=== PATIENT | female | born 1995 | race Caucasian/White ===

== ENCOUNTER 2021-06-30 13:07 | Outpatient (REF) | payer OTHER, SELFPAY | END 2021-06-30 13:08 | disposition home or self-care (01) | LOC: HO.LAB 13:07 | PROVIDERS: Visit Provider Internal Medicine | DX: Z20.822 Contact with and (suspected) exposure to COVID-19 (principal) | CPT/HCPCS: C9803; U0003; U0005 ==

== ENCOUNTER 2022-01-26 19:59 | Emergency (ER) | payer OTHER, MEDICAID, SELFPAY ==
[2022-01-26 21:11] VITALS: BP 139/72; PULSE 82; RESP 14; TEMP 36.4; O2SAT 99; BMI 41.1
--- NOTE | 2022-01-26 22:50 | ED_ITS ---
HPI - Extremity Problem General Chief complaint: Extremity Problem Stated complaint: left hand pain Time Seen by Provider: 01/26/22 22:50 Source: patient Mode of arrival: ambulatory History of Present Illness HPI Narrative: 26-year-old female at 37 weeks gestation presenting to the ED complaining of acute on chronic left wrist pain x weeks. Admits does a lot of work with hand/wrist at work which is exacerbating symptoms. Admits to associated paresthesias. Denies injury, trauma, fall, weakness, fever, neck pain, back pain MD Complaint: extremity pain and joint pain Onset (ago): day(s) Related Data Allergies Allergy/AdvReac Type Severity Reaction Status Date / Time No Known Allergies Allergy Unverified 04/23/20 19:28 [No Known Allergies*] Review of Systems Review of Systems: Constitutional: No Fever, No Chills ENT/Mouth: No Ear Pain, No Nasal Congestion, No sore throat, No Rhinorrhea, No Swallowing Difficulty Cardiovascular: No Chest Pain, No SOB Respiratory: No Cough, No Sputum Gastrointestinal: No Nausea, No Vomiting, No Diarrhea, No Constipation, No Abdominal pain Genitourinary: No Dysuria, No Urinary Frequency, No Hematuria, No Flank Pain Musculoskeletal: + joint pain, No Myalgias, No Joint Swelling Skin: No Skin Lesions, No rash Neuro: No Weakness, No Numbness, + Paresthesias Yes all other systems are reviewed and are negative Neurologic: Denies Sensory deficit (Neuro) [facility] Past Medical History Attestation statement: The following information was validated with the patient. Social History Social History Advance Directives: No Advance Directives Information Provided: Yes Physical Exam Vital Signs: Vital Signs: Last Vital Signs Temp 97.6 F 01/26/22 21:11 Pulse 82 01/26/22 21:11 Resp 14 01/26/22 21:11 BP 139/72 01/26/22 21:11 Pulse Ox 99 01/26/22 21:11 O2 Del Method 01/26/22 21:11 BMI result Body Mass Index 41.1 Const: General: cooperative, healthy appearing and no acute distress Orientation/consciousness: patient oriented x3 Limitations: no limitations HEENT: Head: Yes normal to inspection and Yes atraumatic Ears: hearing grossly normal bilaterally General nose exam: Normal external nose present Face and sinus: Yes normal facial exam Eyes: General: appearance normal, both eyes and all related structures EOM: EOMs intact bilaterally Neck: Other: No midline cervical spinous tenderness Neck: Yes normal visual inspection and Yes no meningeal signs Resp: Effort & Inspection: normal respiratory effort and no respiratory distress Cardio: Rate: regular rate Heart sounds: S1 normal heart sound present and S2 normal heart sound present Peripheral pulses: radial pulses present and ulnar radial pulses present Skin: Rashes: no rashes Wounds: no wounds Neuro: General: patient oriented x3, tone normal and no meningeal signs Gait exam (Neuro): Normal gait present Motor exam (neuro): 5/5 motor strength present throughout Sensory Exam: No Sensory deficit (Neuro) Extrem: Other: No wrist deformity. +left wrist tenderness to palpation with pain with ROM. No erythema/crepitus/ecchymosis. Ulnar and radial pulses intact. Positive Tinel's and Phalen sign General: Yes normal to inspection MDM - Extremity (Nontraumatic) MDM Narrative Medical decision making narrative: 26-year-old female at 37 weeks gestation presenting to the ED complaining of acute on chronic left wrist pain x weeks. On exam vital signs stable, NAD, nontoxic appearing, physical exam as above consistent with carpal tunnel syndrome. + Tinel's and Phalen sign. Sensation and strength intact. Discussed with patient symptoms are likely exacerbated from , will supply with volar wrist splint and recommended Tylenol q.4-6 hours Plan: Volar splint, hand follow-up Medical Records Attestation: I reviewed the patient's medical records. Lab Data Attestation: I reviewed the patient's lab results. Procedures Orthopedic Splinting/Casting Injury #1: Side: left Upper Extremity Injury Location: wrist Upper Extremity Immobilizer: volar splint Discharge Plan Discharge Clinical Impression: Carpal tunnel syndrome Patient Disposition: Home, Self-Care Instructions: Carpal Tunnel Surgery (DC) Additional Instructions: Wear wrist splint at as much as possible, especially during sleep. Ice and heat alternating home. Take Tylenol Please follow-up with her OBGYN and primary care doctor. Dr. Harry is a hand specialist if her symptoms persist after Rest If symptoms persist or worsen return to the emergency department Referrals: Halley Kelly MD [Physician] - 1 week Stand Alone Forms: Work/School Release Discharge Date/Time: 01/26/22 23:00
== END 2022-01-26 23:00 | disposition home or self-care (01) ==
PROVIDERS: Emergency Provider Emergency Medicine Emergency Medical Services; PCP Internal Medicine
DX: G56.02 Carpal tunnel syndrome, left upper limb (principal)
CPT/HCPCS: 29125; 99282

== ENCOUNTER 2022-07-16 14:40 | Emergency (ER) | payer OTHER, SELFPAY ==
[2022-07-16 14:47] VITALS: BP 134/80; PULSE 68; RESP 18; TEMP 36.7; O2SAT 97; BMI 32.5
--- NOTE | 2022-07-16 14:47 | ED.GENADULT ---
HPI - General Adult General Chief complaint: General Medical <SU Lombardo Last Filed: 07/16/22 14:49> Stated complaint: sore throat <SU Lombardo Last Filed: 07/16/22 14:49> Time Seen by Provider: 07/16/22 15:28 <SU Lombardo Last Filed: 07/16/22 14:49> Source: patient <SU Armendariz Last Filed: 07/16/22 16:44> Mode of arrival: ambulatory <SU Armendariz Last Filed: 07/16/22 16:44> Limitations: no limitations <SU Armendariz Last Filed: 07/16/22 16:44> History of Present Illness HPI narrative: 36-year-old female presents to the ER for evaluation of sore throat and right-sided ear pain for the last few days. She states she has intermittently been taking Tylenol with only brief improvement. She feels like she has swollen lymph nodes on the right side of her neck. She is able to eat and drink normally but reports that hurts to swallow. She denies fever or chills. She has had some mild nasal congestion and dry cough. No nausea, vomiting, diarrhea, abdominal pain. No chest pain or shortness of breath. No known sick contacts. She is here seeking antibiotics to help her get better. <SU Armendariz Last Filed: 07/16/22 16:44> MD complaint: Right ear pain and throat pain. <SU Armendariz Last Filed: 07/16/22 16:44> Onset (ago): day(s) <SU Armendariz Last Filed: 07/16/22 16:44> Location: head, face and mouth <SU Armendariz Last Filed: 07/16/22 16:44> Radiation: non-radiation <SU Armendariz Last Filed: 07/16/22 16:44> Severity: moderate <SU Armendariz Last Filed: 07/16/22 16:44> Quality: aching <SU Armendariz Last Filed: 07/16/22 16:44> Pain Consistency: constant <SU Armendariz Last Filed: 07/16/22 16:44> Relieving factors: medication <SU Armendariz Last Filed: 07/16/22 16:44> Exacerbating factors: none <SU Armendariz Last Filed: 07/16/22 16:44> Associated symptoms: cough, headaches and malaise <SU Armendariz Last Filed: 07/16/22 16:44> Treatments prior to arrival: none <SU Armendariz Last Filed: 07/16/22 16:44> Related Data Home medications: Previous Rx's Medication Instructions Recorded ibuprofen 600 mg tablet 600 mg PO Q8H PRN fever or pain 07/16/22 #20 tabs <SU Lombardo Last Filed: 07/16/22 14:49> Allergies/adverse reactions: Allergies Allergy/AdvReac Type Severity Reaction Status Date / Time No Known Allergies Allergy Unverified 04/23/20 19:28 [No Known Allergies*] <SU Lombardo Last Filed: 07/16/22 14:49> Review of Systems Review of Systems: Constitutional: No Fever, No Chills ENT/Mouth: + sore throat, No Rhinorrhea, No Swallowing Difficulty, +Otalgia Eyes: No Eye Pain, No Swelling, No Redness Cardiovascular: No Chest Pain, No SOB Respiratory: + Cough, No Sputum, No Wheezing, No dyspnea Gastrointestinal: No Nausea, No Vomiting, No Diarrhea, No abdominal Daniela Musculoskeletal: No joint pain, No Myalgias Skin: No Skin Lesions, No rash Neuro: No Weakness, No Dizziness, + Headache Heme/Lymph: No Bruising, + Lymphadenopathy <SU Armendariz Last Filed: 07/16/22 16:44> [facility] Social History Social History: Social History Advance Directives: No Advance Directives Information Provided: No <SU Lombardo Last Filed: 07/16/22 14:49> Physical Exam ED Vital Signs: Vital Signs - 24 hr 07/16/22 14:47 Temperature 98.1 F Pulse Rate 68 Respiratory Rate 18 Blood Pressure 134/80 Pulse Oximetry 97 Oxygen Delivery Method Room Air BMI result Body Mass Index 32.5 <SU Lombardo - Last Filed: 07/16/22 14:49> Vital Signs - 24 hr 07/16/22 14:47 Temperature 98.1 F Pulse Rate 68 Respiratory Rate 18 Blood Pressure 134/80 Pulse Oximetry 97 Oxygen Delivery Method Room Air BMI result Body Mass Index 32.5 <SU Armendariz - Last Filed: 07/16/22 16:44> Appearance: Alert. Oriented X3. No acute distress. Eyes: Pupils equal, round and reactive to light. ENT: Pharynx moist mucous membranes. Bilateral tonsillar enlargement with mild generalized erythema, no exudate. Uvula midline. Normal voice, handling secretions normally. Bilateral tympanic membranes are normal to inspection without erythema or bulging. Neck: Normal inspection. Neck supple. Tender lymphadenopathy of the right anterior cervical chain CVS: Normal heart rate and rhythm. Pulses normal. Respiratory: No respiratory distress. Breath sounds normal. Skin: Skin warm and dry. Normal skin color. Normal skin turgor. No rashes. Extremities: No lower extremity edema. Neuro: Oriented X 3. Grossly normal, nonfocal <SU Armendariz Last Filed: 07/16/22 16:44> Course Course Course Narrative: RME: 26 yo female presents w/ sore thorat and right sided ear pain X3 days. No fevers, chills or URI sx. No sick contacts PE- w/ edematous tonsils b /l L>R. Speaking in full sentences controlling secretions well. Nontoxic appearing Plan- strep, flu/covid/rsv <SU Lombardo - Last Filed: 07/16/22 14:49> Reevaluation(s) Reevaluation #1: 26-year-old female presenting to the ER with right-sided ear pain and sore throat for the last few days. On examination she has some tonsillar swelling without exudate. She has a normal voice and is tolerating p.o. crackers and yuko josh in the examination room. No evidence of peritonsillar abscess or retropharyngeal abscess. Swabs and blood work are pending. <SU Armendariz - Last Filed: 12/10/22 16:44> Reevaluation #2: Patient is negative for flu, COVID, RSV, strep throat and mono. We discussed symptomatic care of viral infections. Stable for discharge home. Patient agrees with plan <SU Armendariz - Last Filed: 07/16/22 16:44> Medications Administered Discontinued Medications Generic Name Dose Route Start Last Admin Trade Name Freq PRN Reason Stop Dose Admin Ibuprofen 600 mg 07/16/22 15:56 07/16/22 16:30 Ibuprofen 600 Mg Tablet PO 07/16/22 15:57 600 mg ONCE ONE Administration Lidocaine HCl 15 ml 07/16/22 15:56 07/16/22 16:30 Lidocaine Hcl Viscous 2 % 15 Ml Solution MUCOUS MEM 07/16/22 15:57 15 ml ONCE ONE Administration <SU Lombardo - Last Filed: 07/16/22 14:49> Medications Administered Discontinued Medications Generic Name Dose Route Start Last Admin Trade Name Freq PRN Reason Stop Dose Admin Ibuprofen 600 mg 07/16/22 15:56 07/16/22 16:30 Ibuprofen 600 Mg Tablet PO 07/16/22 15:57 600 mg ONCE ONE Administration Lidocaine HCl 15 ml 07/16/22 15:56 07/16/22 16:30 Lidocaine Hcl Viscous 2 % 15 Ml Solution MUCOUS MEM 07/16/22 15:57 15 ml ONCE ONE Administration <SU Armendariz - Last Filed: 07/16/22 16:44> Discharge Plan Discharge Clinical Impression: Viral URI <US Lombardo Last Filed: 07/16/22 14:49> Patient Disposition: Home, Self-Care <SU Lombardo Last Filed: 07/16/22 14:49> Instructions: Upper Respiratory Infection (ED) <SU Lombardo Last Filed: 07/16/22 14:49> Additional Instructions: You tested negative for COVID-19, influenza, RSV, strep throat and mononucleosis. There is no evidence of bacterial infection, no antibiotics are indicated at this time. Your symptoms are most likely due to a viral infection. Treatment is supportive care. Take aica-xuq-gxjqeny cold and flu medications as needed for your symptoms. Take the prescribed anti-inflammatory pain medication as needed for fevers and pain. Rest and stay hydrated. Follow up with your doctor as needed. If you develop new or worsening symptoms call 911 or come back to the ER for further evaluation. <SU Lombardo - Last Filed: 07/16/22 14:49> Prescriptions: New ibuprofen 600 mg tablet 600 mg PO Q8H PRN (Reason: fever or pain) Qty: 20 0RF <SU Lombardo - Last Filed: 07/16/22 14:49>
--- OUTSIDE RECORDS SUMMARY | 2022-07-16 15:25 | XMS_ITS | Continuity of Care Document ---
:1995 Author Organization [facility] Address [address] [place] [address], [address] [place] [id number]- Care Team Providers Name Role Phone Priscila DE JESUS, Selam Primary Care Physician Encounter [facility] Date(s): 01/28/22 - 02/04/22 [facility] [address] [place] [address], [address] [place] [id number] Attending Physician: Eva Donahue MD Allergies, Adverse Reactions, Alerts No Known Allergies Immunizations Given and Recorded Vaccine Date Status Refusal Reason tetanus/diphtheria/pertussis, acel(Tdap) 11/25/21 Given tetanus/diphtheria/pertussis, acel(Tdap) 11/10/16 Given SARS-CoV-2 (COVID-19) mRNA-1273 vaccine 03/04/21 Recorded SARS-CoV-2 (COVID-19) mRNA-1273 vaccine 01/05/21 Recorded influenza virus vaccine, inactivated 07/19/17 Given influenza virus vaccine, inactivated 04/15/16 Recorded Human Papillomavirus Vaccine 02/21/17 Given Human Papillomavirus Vaccine 10/14/16 Given Medications Compression Stockings See Instructions, # 2 each, Refills 0, Tot. Refills 0, Maintenance, surgical, calf length 20-30 mm Hg, 12/06/21 11:55:00 EDT, Supply Start Date: 12/06/21 Status: Orderedfolic acid 0.8 mg oral tablet 1 tablet = 0.8 mg, By Mouth, Daily, # 100 tablet, 4 Refills, Maintenance, 09/13/21 13:25:00 EST, Tablet, [facility] #[id number], Partial fill upon patient request if the prescription is for a schedule II opioid drug., 163, cm, 09/13/21 13:11:00 E... Start Date: 09/13/21 Status: Orderedketoconazole 2% topical shampoo 1 application, Topically, Once, PRN as needed, # 120 mL, 0 Refills, Soft Stop, 11/24/21 16:13:00 EDT, Shampoo, [facility] #[id number], Partial fill upon patient request if the prescription is for a schedule II opioid drug., 1 application Topicall... Start Date: 11/24/21 Status: OrderedPrenatal Multivitamins with Folic Acid 1 mg oral capsule See Instructions, TAKE ONE DAILY BY MOUTH, # 100 tablet, 2 Refills, Maintenance, 06/15/21 14:37:00 EST, [facility] #[id number], Partial fill upon patient request if the prescription is for a schedule II opioid drug., TAKE ONE DAILY BY MOUTH, 163,... Start Date: 06/15/21 Status: Ordered Problem List Condition Effective Dates Status Health Status Informant Constipation(Confirmed) Active COVID-19 affecting , Active antepartum(Confirmed) Generalized anxiety Active disorder(Confirmed)1 History of panic attacks(Confirmed) Active History of oligohydramnios(Confirmed)2 2012 Active Depression: MDD (major depressive Active disorder), recurrent episode(Confirmed) Dermatitis, seborrheic(Confirmed) Active Severe obesity(Confirmed) Active Uterine scar from previous Active delivery(Confirmed) Maternal varicella, Active non-immune(Confirmed) 1As per [facility] forms faxed on 04/16/18. Provider: Olive Moralesper youth career specialist 2019 note Social History Social History Type Response Smoking Status Never (less than 100 in life time) entered on: 07/09/21 Sex
--- OUTSIDE RECORDS SUMMARY | 2022-07-16 15:25 | XMS_ITS | Continuity of Care Document ---
:1995 Author Organization [facility] Address [address] [place] [address], [address] [place] [phone]- Care Team Providers Name Role Phone Priscila DE JESUS, Selam Primary Care Physician Encounter [facility] Date(s): 11/24/21 - 12/24/21 [facility] [address] [place] [address], [address] [place] [id number] Allergies, Adverse Reactions, Alerts No Known Allergies [...] 4 Refills, Maintenance, 09/13/21 13:25:00 EST, Tablet, [facility] #[id number], Partial fill upon patient request if the prescription is for a schedule II opioid drug., 163, cm, 09/13/21 13:11:00 E... Start Date: 09/13/21 Status: Orderedketoconazole 2% topical shampoo 1 application, Topically, Once, PRN as needed, # 120 mL, 0 Refills, Soft Stop, 11/24/21 16:13:00 EDT, Shampoo, [facility] #[id number], Partial fill upon patient request if the prescription is for a schedule II opioid drug., 1 application Topicall... Start Date: 11/24/21 Status: OrderedPrenatal Multivitamins with Folic Acid 1 mg oral capsule See Instructions, TAKE ONE DAILY BY MOUTH, # 100 tablet, 2 Refills, Maintenance, 06/15/21 14:37:00 EST, [facility] #[id number], Partial fill upon patient request if the prescription is for a schedule II opioid drug., TAKE ONE DAILY BY MOUTH, 163,... Start Date: 06/15/21 Status: Ordered Problem List Condition Effective Dates Status Health Status Informant Constipation(Confirmed) Active COVID-19 affecting , Active antepartum(Confirmed) Generalized anxiety Active disorder(Confirmed)1 History of panic attacks(Confirmed) Active History of oligohydramnios(Confirmed)2 2012 Active Obese class II(Confirmed) Active Depression: MDD (major depressive Active disorder), recurrent episode(Confirmed) Dermatitis, seborrheic(Confirmed) Active Uterine scar from previous Active delivery(Confirmed) Maternal varicella, Active non-immune(Confirmed) 1As per [facility] forms faxed on 04/16/18. Provider: Olive Cherys2per horticultural farmer 2019 note Social History Social History Type Response Smoking Status Never (less than 100 in life time) entered on: 07/09/21 Sex
--- OUTSIDE RECORDS SUMMARY | 2022-07-16 15:25 | XMS_ITS | Continuity of Care Document ---
:1995 Author Organization [facility] Address [address] [place] [address], [address] [place] [id number]- Care Team Providers Name Role Phone Priscila DE JESUS, Selam Primary Care Physician Encounter [facility] Date(s): 11/25/21 - 12/02/21 [facility] [address], [address] [place] [email or web address] Attending Physician: Ho León MD Referring Physician: Tho DE JESUS [OB], Joanna Moya Allergies, Adverse Reactions, Alerts No Known Allergies Immunizations Given and Recorded Vaccine Date Status Refusal Reason tetanus/diphtheria/pertussis, acel(Tdap) 11/25/21 Given tetanus/diphtheria/pertussis, acel(Tdap) 11/10/16 Given SARS-CoV-2 (COVID-19) mRNA-1273 vaccine 03/04/21 Recorded SARS-CoV-2 (COVID-19) mRNA-1273 vaccine 01/05/21 Recorded influenza virus vaccine, inactivated 07/19/17 Given influenza virus vaccine, inactivated 04/15/16 Recorded Human Papillomavirus Vaccine 02/21/17 Given Human Papillomavirus Vaccine 10/14/16 Given Medications folic acid 0.8 mg oral tablet 1 tablet = 0.8 mg, By Mouth, Daily, # 100 tablet, 4 Refills, Maintenance, 09/13/21 13:25:00 EST, Tablet, [facility] #[id number], Partial fill upon patient request if the prescription is for a schedule II opioid drug., 163, cm, 09/13/21 13:11:00 E... Start Date: 09/13/21 Status: Orderedketoconazole 2% topical shampoo 1 application, Topically, Once, PRN as needed, # 120 mL, 0 Refills, Soft Stop, 11/24/21 16:13:00 EDT, Shampoo, [facility][id number], Partial fill upon patient request if the prescription is for a schedule II opioid drug., 1 application Topicall... Start Date: 11/24/21 Status: OrderedPrenatal Multivitamins with Folic Acid 1 mg oral capsule See Instructions, TAKE ONE DAILY BY MOUTH, # 100 tablet, 2 Refills, Maintenance, 06/15/21 14:37:00 EST, [facility] #[id number], Partial fill upon patient request if the [...] forms faxed on 04/16/18. Provider: Olive Cherys2per program trainer 2019 note Vital Signs Most recent to oldest [Reference Range]: 1 Height 163 cm (11/25/21 4:41 PM) Weight 103.13 kg (11/25/21 4:41 PM) Body Mass Index [18.5-24.99] 38.82 *>HHI* (11/25/21 4:41 PM) Blood Pressure [90-138/55-84 mm Hg] 119/67 mm Hg (11/25/21 4:41 PM) Blood pressure sites Arm, right (11/25/21 4:41 PM) Weight Obtained Via Standing scale (11/25/21 4:41 PM) Social History Social History Type Response Smoking Status Never (less than 100 in life time) entered on: 07/09/21 Sex
--- OUTSIDE RECORDS SUMMARY | 2022-07-16 15:25 | XMS_ITS | Continuity of Care Document ---
:1995 Author Organization [address] [place] [address]- Care Team Providers Name Role Phone Liam DE JESUS, Olman Primary Care Physician [place] [facility] [place] - 05/18/[address] [place], [place] [address] Allergies, Adverse Reactions, Alerts No Known Allergies Immunizations Given and Recorded Vaccine Date Status Refusal Reason tetanus/diphtheria/pertussis, acel(Tdap) 11/25/21 Given tetanus/diphtheria/pertussis, acel(Tdap) 11/10/16 Given SARS-CoV-2 (COVID-19) mRNA-1273 vaccine 03/04/21 Recorded SARS-CoV-2 (COVID-19) mRNA-1273 vaccine 01/05/21 Recorded influenza virus vaccine, inactivated 07/19/17 Given influenza virus vaccine, inactivated 04/15/16 Recorded Human Papillomavirus Vaccine 02/21/17 Given Human Papillomavirus Vaccine 10/14/16 Given Medications acetaminophen 325 mg oral tablet 650 mg, By Mouth, Every 4 hours, (1-3), may give 325mg per patient preference and re-dose with 325mgwithin 4 hours, if needed. Patient should only receive a total of 650mg of Acetaminophen every 4 hours., # 50 tablet, Refills 0, Tot. Refills 0, Jenni... Start Date: 02/23/22 Status: OrderedCompression Stockings See Instructions, # 2 each, Refills 0, Tot. Refills 0, Maintenance, surgical, calf length 20-30 mm Hg, 12/06/21 11:55:00 EDT, Supply Start Date: 12/06/21 Status: OrderedDiflucan 150 mg oral tablet 1 tablet = 150 mg, By Mouth, Once, # 1 tablet, 0 Refills, Soft Stop, 09/13/22 11:15:00 EDT, Tablet, [facility] #[id number], Partial fill upon patient request if the prescription is for a schedule II opioid drug., [place], 04/15/22 16:06:00 EDT, H... Start Date: 04/19/22 Status: Ordereddocusate sodium 100 mg oral tablet = 100 mg, By Mouth, 2 times a day, # 60 tablet, 0 Refills, Maintenance, 02/23/22 6:32:00 EDT, Tablet, [facility] #[id number], Partial fill upon patient request if the prescription is for a schedule II opioid drug., 163, [place], 02/23/22 0:05:00 EDT,... Start Date: 02/23/22 Status: Orderedfamotidine 20 mg oral tablet 20 mg, 1, tablet, By Mouth, Daily, # 30 tablet, Refills 0, Tot. Refills 0, Maintenance, 01/12/22 9:47:00 EDT, Route to Pharmacy Electronically, [facility] #[id number], Partial fill upon patient request if the prescription is for a schedule II opi... Start Date: 01/12/22 Stop Date: 02/11/22 Status: Orderedfolic acid 0.8 mg oral tablet 1 tablet = 0.8 mg, By Mouth, Daily, # 100 tablet, 4 Refills, Maintenance, 09/13/21 13:25:00 EST, Tablet, [facility] #[id number], Partial fill upon patient request if the prescription is for a schedule II opioid drug., 163, [place], 09/13/21 13:11:00 E... Start Date: 09/13/21 Status: Orderedhydrocortisone 2.5% topical ointment 1 application, Topically, 3 times a day, # 28.35 Gm, 0 Refills, Maintenance, 03/02/22 13:36:00 EDT, Ointment, [facility] #[id number], Partial fill upon patient request if the prescription is for aschedule II opioid drug., 1 application Topically... Start Date: 03/02/22 Stop Date: 03/16/22 Status: Orderedibuprofen 800 mg oral tablet 800 mg, 1, tablet, By Mouth, Every 8 hours, (4-6), may give 400mg per patient preference and re-dosewith 400mg within 8 hours, if needed. Patient should only receive a total of 800mg of Ibuprofen every 8 hours., # 50 tablet, Refills 0, Tot. Refills... Start Date: 02/23/22 Status: Orderedketoconazole 2% topical shampoo 1 application, Topically, Once, PRN as needed, as directed on package labeling, # 120 mL, 4 Refills,Soft Stop, 05/04/22 12:43:00 EDT, Shampoo, [facility] #[id number], Partial fill upon patient request if the prescription is for a schedule II opi... Start Date: 05/04/22 Status: OrderedoxyCODONE 5 mg oral tablet 5 mg, 1, tablet, By Mouth, Every 3 hours, PRN, (7-10), # 7 tablet, Refills 0, Tot. Refills 0, Maintenance, Pain , Severe, 02/23/22 6:32:00 EDT, Route to Pharmacy Electronically, [facility] #[id number], Partial fill upon patient request if the pre... Start Date: 02/23/22 Status: OrderedPrenatal Multivitamins with Folic Acid 1 mg oral capsule See Instructions, TAKE ONE DAILY BY MOUTH, # 100 tablet, 2 Refills, Maintenance, 06/15/21 14:37:00 EST, [facility] #[id number], Partial fill upon patient request if the prescription is for a schedule II opioid drug., TAKE ONE DAILY BY MOUTH, 163,... Start Date: 06/15/21 Status: Orderedsertraline 25 mg oral tablet 1 tablet = 25 mg, By Mouth, Daily, 1 tab po qd x 1 week. If doing well, increase to bid, # 90 tablet, 0 Refills, Maintenance, 04/15/22 16:42:00 EDT, Tablet, [facility] #[id number], Partial fill upon patient request if the prescription is for a sc... Start Date: 04/15/22 Status: Orderedsertraline 50 mg oral tablet 1 tablet = 50 mg, By Mouth, Daily, # 90 tablet, 0 Refills, Maintenance, 04/29/22 12:34:00 EDT, Tablet, [facility] #[id number], Partial fill upon patient request if the prescription is for a schedule II opioid drug., 163, cm, 04/15/22 16:06:00 EDT... Start Date: 04/29/22 Status: Orderedsimethicone 80 mg oral tablet, chewable 80 mg, Chew, 3 times a day, PRN, # 36 tablet, Refills 0, Tot. Refills 0, Maintenance, Gas, 02/23/22 6:32:00 EDT, Route to Pharmacy Electronically, [facility] #[id number], Partial fill upon patientrequest if the prescription is for a schedule II... Start Date: 02/23/22 Status: Ordered Problem List Condition Confirmation Course Effective Dates Status Health Stat us Informant Constipation Confirmed Active COVID-19 affecting Confirmed Active , antepartum Generalized anxiety Confirmed Active disorder1 History of panic Confirmed Active attacks History of Confirmed 2013 Active oligohydramnios2 Obese class II Confirmed Active Depression: MDD Confirmed Active (major depressive disorder), recurrent episode Dermatitis, Confirmed Active seborrheic Uterine scar from Confirmed Active previous delivery Maternal varicella, Confirmed Active non-immune 1As per [facility] forms faxed on 04/16/18. Provider: Olive Cherys2per captain's assistant 2019 note Social History Social History Type Response Smoking Status Never (less than 100 in life time) entered on: 07/09/21 Sex Patient Care team information PersonnelName: Olman Wheeler MD Address: Address: [address] [place] [address]
--- OUTSIDE RECORDS SUMMARY | 2022-07-16 15:25 | XMS_ITS | Continuity of Care Document ---
:1995 Author Organization [facility] Address [address] [place] [address], [address] [place] [address]- Care Team Providers Name Role Phone Liam DE JESUS, Olman Primary Care Physician [place] [facility] [place]07[place] - 04/06/22 [facility] [address], [address] [place] [id number] Attending Physician: Xiang Perez Admitting Physician: AdmtrXiang Referring Physician: Admtr, Ar8 Allergies, Adverse Reactions, Alerts No Known Allergies [...] 11:55:00 EDT, Supply Start Date: 12/06/21 Status: Ordereddocusate sodium 100 mg oral tablet = 100 mg, By Mouth, 2 times a day, # 60 tablet, 0 Refills, Maintenance, 02/23/22 6:32:00 EDT, Tablet, [facility] #[id number], Partial fill upon patient request if the prescription is for a schedule II opioid drug., 163, cm, 02/23/22 0:05:00 EDT,... Start Date: 02/23/22 Status: Orderedfamotidine 20 mg oral tablet 20 mg, 1, tablet, By Mouth, Daily, # 30 tablet, Refills 0, Tot. Refills 0, Maintenance, 01/12/22 9:47:00 EDT, Route to Pharmacy Electronically, [facility] #[id number], Partial fill upon patient request if the prescription is for a schedule II opi... Start Date: 01/12/22 Stop Date: 02/11/22 Status: Orderedfolic acid 0.8 mg oral tablet 1 tablet = 0.8 mg, By Mouth, Daily, # 100 tablet, 4 Refills, Maintenance, 09/13/21 13:25:00 EST, Tablet, [facility] #[id number], Partial fill upon patient request if the prescription is for a schedule II opioid drug., 163, cm, 09/13/21 13:11:00 E... Start Date: 09/13/21 Status: Orderedhydrocortisone 2.5% topical ointment 1 application, Topically, 3 times a day, # 28.35 Gm, 0 Refills, Maintenance, 03/02/22 13:36:00 EDT, Ointment, [facility] #[id number], Partial fill upon patient request if the [...] Refills, Soft Stop, 11/24/21 16:13:00 EDT, Shampoo, [facility] #[id number], Partial fill upon patient request if the prescription is for a schedule II opioid drug., 1 application Topicall... Start Date: 11/24/21 Status: OrderedoxyCODONE 5 mg oral tablet 5 mg, 1, tablet, By Mouth, Every 3 hours, PRN, (7-10), # 7 tablet, Refills 0, Tot. Refills 0, Maintenance, Pain , Severe, 02/23/22 6:32:00 EDT, Route to Pharmacy Electronically, [facility] #[id number], Partial fill upon patient request if the pre... Start Date: 02/23/22 Status: OrderedPrenatal Multivitamins with Folic Acid 1 mg oral capsule See Instructions, TAKE ONE DAILY BY MOUTH, # 100 tablet, 2 Refills, Maintenance, 06/15/21 14:37:00 EST, [facility] #[id number], Partial fill upon patient request if the prescription is for a schedule II opioid drug., TAKE ONE DAILY BY MOUTH, 163,... Start Date: 06/15/21 Status: Orderedsimethicone 80 mg oral tablet, chewable 80 mg, Chew, 3 times a day, PRN, # 36 tablet, Refills 0, Tot. Refills 0, Maintenance, Gas, 02/23/22 6:32:00 EDT, Route to Pharmacy Electronically, [facility] #[id number], Partial fill upon patientrequest if the prescription is for a schedule II... Start Date: 02/23/22 Status: Ordered Problem List Condition Effective Dates Status Health Status Informant Constipation(Confirmed) Active COVID-19 affecting , Active antepartum(Confirmed) Generalized anxiety Active disorder(Confirmed)1 History of panic attacks(Confirmed) Active History of oligohydramnios(Confirmed)2012 Active Depression: MDD (major depressive Active disorder), recurrent episode(Confirmed) Dermatitis, seborrheic(Confirmed) Active Severe obesity(Confirmed) Active Uterine scar from previous Active delivery(Confirmed) Maternal varicella, Active non-immune(Confirmed) 1As per [facility] forms faxed on 04/16/18. Provider: Olive Crawford director craft center 2019 note Social History Social History Type Response Smoking Status Never (less than 100 in life time) entered on: 07/09/21 Sex Care Team PersonnelName: Olman Wheeler MD Address: [address] [place] [address]
--- OUTSIDE RECORDS SUMMARY | 2022-07-16 15:25 | XMS_ITS | Continuity of Care Document ---
:1995 Author Organization [facility] Address [address] [place] [address], [address] [place] [address]- Care Team Providers Name Role Phone Priscila DE JESUS, Selam Primary Care Physician En[place] [facility] [place] Date(s): 12/17/21 - 01/16/22 [facility] [address] [place] [address], [address] [place] [id number] Allergies, Adverse Reactions, Alerts No Known [...] 4 Refills, Maintenance, 09/13/21 13:25:00 EST, Tablet, [facility] #[id number], Partial fill upon patient request if the prescription is for a schedule II opioid drug., 163, cm, 09/13/21 13:11:00 E... Start Date: 09/13/21 Status: Orderedketoconazole 2% topical shampoo 1 application, Topically, Once, PRN as needed, # 120 mL, 0 Refills, Soft Stop, 11/24/21 16:13:00 EDT, Shampoo, [facility] #[id number], Partial fill upon patient request if the prescription is for a schedule II opioid drug., 1 application Topicall... Start Date: 11/24/21 Status: OrderedPrenatal Multivitamins with Folic Acid 1 mg oral capsule See Instructions, TAKE ONE DAILY BY MOUTH, # 100 tablet, 2 Refills, Maintenance, 06/15/21 14:37:00 EST, [facility] #[id number], Partial fill upon patient request if the [...] forms faxed on 04/16/18. Provider: Olive Cherys2per mandrel press hand 2019 note Social History Social History Type Response Smoking Status Never (less than 100 in life time) entered on: 07/09/21 Sex
--- OUTSIDE RECORDS SUMMARY | 2022-07-16 15:25 | XMS_ITS | Continuity of Care Document ---
:1995 Author Organization [facility] Address [address] [place] [address], [address] [place] [address]- Care Team Providers Name Role Phone Liam DE JESUS, Olman Primary Care Physician [place] [facility] [place] 02/15/22 [facility] [address], [address] [place] [id number] Attending Physician: Godfrey DE JESUS, Eva Daniel Allergies, Adverse Reactions, Alerts No Known Allergies [...] 4 Refills, Maintenance, 09/13/21 13:25:00 EST, Tablet, [facility] #[id number], Partial fill upon patient request if the prescription is for a schedule II opioid drug., 163, cm, 09/13/21 13:11:00 E... Start Date: 09/13/21 Status: Orderedketoconazole 2% topical shampoo 1 application, Topically, Once, PRN as needed, # 120 mL, 0 Refills, Soft Stop, 11/24/21 16:13:00 EDT, Shampoo, [facility] #[id number], Partial fill upon patient request if the prescription is for a schedule II opioid drug., 1 application Topicall... Start Date: 11/24/21 Status: OrderedPrenatal Multivitamins with Folic Acid 1 mg oral capsule See Instructions, TAKE ONE DAILY BY MOUTH, # 100 tablet, 2 Refills, Maintenance, 06/15/21 14:37:00 EST, [facility] #[id number], Partial fill upon patient request if the [...] forms faxed on 04/16/18. Provider: Olive Moralesper installation manager 2019 note Vital Signs Most recent to oldest [Reference Range]: 1 Height 163 cm (02/08/22 1:06 PM) Weight 108.63 kg (02/08/22 1:06 PM) Body Mass Index [18.5-24.99] 40.89 *>HHI* (02/08/22 1:06 PM) Blood Pressure [90-138/55-84 mm Hg] 134/72 mm Hg (02/08/22 1:06 PM) Blood pressure sites Arm, left (02/08/22 1:06 PM) Weight Obtained Via Standing scale (02/08/22 1:06 PM) Social History Social History Type Response Smoking Status Never (less than 100 in life time) entered on: 07/09/21 Sex
--- OUTSIDE RECORDS SUMMARY | 2022-07-16 15:25 | XMS_ITS | Continuity of Care Document ---
:1995 Author Organization [facility] Address [address] [place] [address]- Care Team Providers Name Role Phone Priscila DE JESUS, Selam Primary Care Physician Encounter [facility] Date(s): 06/03/21 - 07/03/21 [facility] [address] [place], [place] [address] Allergies, Adverse Reactions, Alerts Substance Reaction Severity Status NKA Active Immunizations Given and Recorded Vaccine Date Status Refusal Reason SARS-CoV-2 (COVID-19) mRNA-1273 vaccine 03/04/21 Recorded SARS-CoV-2 (COVID-19) mRNA-1273 vaccine 01/05/21 Recorded influenza virus vaccine, inactivated 07/19/17 Given influenza virus vaccine, inactivated 04/15/16 Recorded Human Papillomavirus Vaccine 02/21/17 Given Human Papillomavirus Vaccine 10/14/16 Given tetanus/diphtheria/pertussis, acel(Tdap) 11/10/16 Given Medications FLUoxetine 10 mg oral tablet 1 tablet = 10 mg, By Mouth, Daily, # 60 tablet, 0 Refills, Maintenance, 06/15/21 15:03:00 EST, Tablet, [facility] #[id number], Partial fill upon patient request if the prescription is for a schedule II opioid drug., 163, cm, 06/15/21 14:24:00 EST... Start Date: 06/15/21 Status: Orderedketoconazole 2% topical shampoo See Instructions, 1 application Topically once-twice a week, for four weeks, # 240 mL, 1 Refills, Soft Stop, 06/03/21 8:40:00 EDT, Shampoo, [facility] #[id number], 1 application Topically once-twice a week, for four weeks, 163, cm, 05/10/21 14:44... Start Date: 06/03/21 Status: OrderedPrenatal Multivitamins with Folic Acid 1 mg oral capsule See Instructions, TAKE ONE DAILY BY MOUTH, # 100 tablet, 2 Refills, Maintenance, 06/15/21 14:37:00 [facility] #[id number], Partial fill upon patient request if the prescription is for a schedule II opioid drug., TAKE ONE DAILY BY MOUTH, 163,... Start Date: 06/15/21 Status: Ordered Problem List Condition Effective Dates Status Health Status Informant Ovarian cyst, right(Confirmed) Active Generalized anxiety Active disorder(Confirmed)1 History of panic attacks(Confirmed) Active History of oligohydramnios(Confirmed)2 2012 Active Cannabis abuse, mild(Confirmed)3 Active Obesity(Confirmed) Active Depression: MDD (major depressive Active disorder), recurrent episode(Confirmed) Dermatitis, seborrheic(Confirmed) Active 1As per [facility] forms faxed on 04/16/18. Provider: Olive Moralesper conductor/brakeman 2019 note3 As per [facility] forms faxed on 04/16/18. Provider: Olive Kumari Social History Social History Type Response Smoking Status Never smoker; Tobacco user i n household: No entered on: 02/26/15 Sex
--- OUTSIDE RECORDS SUMMARY | 2022-07-16 15:25 | XMS_ITS | Continuity of Care Document ---
:1995 Author Organization [facility] Address [address] [place] [address], [address] [place] [id number]- Care Team Providers Name Role Phone Liam DE JESUS, Olman Primary Care Physician Encounter [facility] [place] Date(s): 05/30/22 - 06/29/22 [facility] [address] [place] [address], [address] [place] [id number] Allergies, Adverse Reactions, Alerts No Known [...] 12/06/21 Status: OrderedDiflucan 150 mg oral tablet 2 tablet = 300 mg, By Mouth, Once, take 1 tablet today, and another in 72 hours if symtpoms are still present, # 2 tablet, 0 Refills, Soft Stop, 06/01/22 15:13:00 EDT, Tablet, [facility] #[id number], Partial fill upon patient request if the presc... Start Date: 06/01/22 Status: Ordereddocusate sodium 100 mg oral tablet = 100 mg, By Mouth, 2 times a day, # 60 tablet, 0 Refills, Maintenance, 02/23/22 6:32:00 EDT, Tablet, [facility] #[id number], Partial fill upon patient request if the prescription is for a schedule II opioid drug., 163, cm, 02/23/22 0:05:00 EDT,... Start Date: 02/23/22 Status: Orderedfamotidine 20 mg oral tablet 20 mg, 1, tablet, By Mouth, Daily, # 30 tablet, Refills 0, Tot. Refills 0, Maintenance, 01/12/22 9:47:00 EDT, Route to Pharmacy Electronically, [facility] #[id number], Partial fill upon patient request if the prescription is for a schedule II opi... Start Date: 01/12/22 Stop Date: 02/11/22 Status: Orderedfolic acid 0.8 mg oral tablet 1 tablet = 0.8 mg, By Mouth, Daily, # 100 tablet, 4 Refills, Maintenance, 09/13/21 13:25:00 EST, Tablet, [facility] #[id number], Partial fill upon patient request if the prescription is for a schedule II opioid drug., 163, cm, 09/13/21 13:11:00 E... Start Date: 09/13/21 Status: Orderedhydrocortisone 2.5% topical ointment 1 application, Topically, 3 times a day, # 28.35 Gm, 0 Refills, Maintenance, 03/02/22 13:36:00 EDT, Ointment, [facility] #[id number], Partial fill upon patient request if the [...] needed, as directed on package labeling, # 2 each, 4 Refills,Soft Stop, 06/23/22 16:31:00 EST, Shampoo, [facility] #[id number], Partial fill upon patient request if the prescription is for a schedule II opi... Start Date: 06/23/22 Status: OrderedoxyCODONE 5 mg oral tablet 5 mg, 1, tablet, By Mouth, Every 3 hours, PRN, (7-10), # 7 tablet, Refills 0, Tot. Refills 0, Maintenance, Pain , Severe, 02/23/22 6:32:00 EDT, Route to Pharmacy Electronically, [facility] #[id number], Partial fill upon patient request if the pre... Start Date: 02/23/22 Status: OrderedPrenatal Multivitamins with Folic Acid 1 mg oral capsule See Instructions, TAKE ONE DAILY BY MOUTH, # 100 tablet, 2 Refills, Maintenance, 06/15/21 14:37:00 [facility][id number], Partial fill upon patient request if the prescription is for a schedule II opioid drug., TAKE ONE DAILY BY MOUTH, 163,... Start Date: 06/15/21 Status: Orderedsertraline 25 mg oral tablet 1 tablet = 25 mg, By Mouth, Daily, 1 tab po qd x 1 week. If doing well, increase to bid, # 90 tablet, 0 Refills, Maintenance, 04/15/22 16:42:00 EDT, Tablet, [facility] #[id number], Partial fill upon patient request if the prescription is for a sc... Start Date: 04/15/22 Status: Orderedsertraline 50 mg oral tablet 1 tablet = 50 mg, By Mouth, Daily, # 90 tablet, 0 Refills, Maintenance, 04/29/22 12:34:00 EDT, [facility][id number], Partial fill upon patient request if the prescription is for a schedule II opioid drug., 163, cm, 04/15/22 16:06:00 EDT... Start Date: 04/29/22 Status: Orderedsimethicone 80 mg oral tablet, chewable 80 mg, Chew, 3 times a day, PRN, # 36 tablet, Refills 0, Tot. Refills 0, Maintenance, Gas, 02/23/22 6:32:00 EDT, Route to Pharmacy Electronically, [facility] #[id number], Partial fill upon patientrequest if the prescription [...] forms faxed on 04/16/18. Provider: Olive Cherys2per administrative volunteer 2019 note Social History Social History Type Response Smoking Status Never (less than 100 in life time) entered on: 07/09/21 Sex Patient Care team information Care Team PersonnelName: Olman Wheeler MD Position: S Resident Member Role: PCP Address: Address: [address] [place] [address] [place] [address]- Care Team Related PersonsName: ALEJANDRA THOMPSON Address: [address] [address] Name: RICHY THOMPSON Address: [id number] Address: home [address] [place] [id number] [place] Name: DAVID HARRY Name: GARY [place]Z Address: [place] [address]
--- OUTSIDE RECORDS SUMMARY | 2022-07-16 15:25 | XMS_ITS | Continuity of Care Document ---
:1995 Author Organization [facility] Address [address] [place] [address]- Care Team Providers Name Role Phone Selam Francois MD Primary Care Physician Encounter [facility] Date(s): 02/10/21 - 03/12/21 [facility] [address] [place] [address]- Allergies, Adverse Reactions, Alerts Substance Reaction Severity Status NKA Active Immunizations Given and Recorded Vaccine Date Status Refusal Reason SARS-CoV-2 (COVID-19) mRNA-1273 vaccine 03/04/21 Recorded SARS-CoV-2 (COVID-19) mRNA-1270 vaccine 01/05/21 Recorded influenza virus vaccine, inactivated 07/19/17 Given influenza virus vaccine, inactivated 04/15/16 Recorded Human Papillomavirus Vaccine 02/21/17 Given Human Papillomavirus Vaccine 10/14/16 Given tetanus/diphtheria/pertussis, acel(Tdap) 11/10/16 Given Medications sertraline 50 mg oral tablet 1 tablet = 50 mg, By Mouth, Daily, # 30 tablet, 2 Refills, Maintenance, 03/11/21 9:14:00 EDT, Tablet, [facility] #[id number], Partial fill upon patient request if the prescription is for a schedule II opioid drug., 163, cm, 03/11/21 8:39:00 EDT,... Start Date: 03/11/21 Status: Ordered Problem List Condition Effective Dates Status Health Status Informant Ovarian cyst, right(Confirmed) Active Generalized anxiety Active disorder(Confirmed)1 History of panic attacks(Confirmed) Active History of oligohydramnios(Confirmed)2 2012 Active Cannabis abuse, mild(Confirmed)3 Active Obesity(Confirmed) Active Depression: MDD (major depressive Active disorder), recurrent episode(Confirmed) Dermatitis, seborrheic(Confirmed) Active 1As per [facility] forms faxed on 04/16/18. Provider: Olive Moralesper supervisory it specialist 2019 note3 As per [facility] forms faxed on 04/16/18. Provider: Olive Kumari Social History Social History Type Response Smoking Status Never smoker; Tobacco user i n household: No entered on: 02/26/15 Sex
--- OUTSIDE RECORDS SUMMARY | 2022-07-16 15:25 | XMS_ITS | Continuity of Care Document ---
:1995 Author Organization [facility] Address [address] [place] [address], [address] [place] [address]- Care Team Providers Name Role Phone Priscila DE JESUS, Selam Primary Care Physician Encounter [facility] Date(s): 01/31/22 - 02/07/22 [facility] [address] [place] [address], [address] [place] [id number] Attending Physician: Eva Donahue MD Allergies, Adverse [...] 4 Refills, Maintenance, 09/13/21 13:25:00 EST, Tablet, [email or web address] #[id number], Partial fill upon patient request if the prescription is for a schedule II opioid drug., 163, cm, 09/13/21 13:11:00 E... Start Date: 09/13/21 Status: Orderedketoconazole 2% topical shampoo 1 application, Topically, Once, PRN as needed, # 120 mL, 0 Refills, Soft Stop, 11/24/21 16:13:00 EDT, Shampoo, [email or web address] #[id number], Partial fill upon patient request if the prescription is for a schedule II opioid drug., 1 application Topicall... Start Date: 11/24/21 Status: OrderedPrenatal Multivitamins with Folic Acid 1 mg oral capsule See Instructions, TAKE ONE DAILY BY MOUTH, # 100 tablet, 2 Refills, Maintenance, 06/15/21 14:37:00 EST, [email or web address] #[id number], Partial fill upon patient request if the [...] forms faxed on 04/16/18. Provider: Olive Moralesper furniture assembler 2019 note Vital Signs Most recent to oldest [Reference Range]: 1 Height 163 cm (01/31/22 1:13 PM) Weight 107.72 kg (01/31/22 1:13 PM) Body Mass Index [18.5-24.99] 40.54 *>HHI* (01/31/22 1:13 PM) Blood Pressure [90-138/55-84 mm Hg] 127/66 mm Hg (01/31/22 1:13 PM) Blood pressure sites Arm, left (01/31/22 1:13 PM) Weight Obtained Via Standing scale (01/31/22 1:13 PM) Social History Social History Type Response Smoking Status Never (less than 100 in life time) entered on: 07/09/21 Sex
--- OUTSIDE RECORDS SUMMARY | 2022-07-16 15:25 | XMS_ITS | Continuity of Care Document ---
:1995 Author Organization [facility] Address [address] [place] [address], [address] [place] [phone]- Care Team Providers Name Role Phone Priscila DE JESUS, Selam Primary Care Physician Encounter [facility] Date(s): 08/19/21 - 09/18/21 [facility] [address] [place] [address], [address] [place] [id number] Allergies, Adverse Reactions, Alerts No Known Allergies Immunizations Given and Recorded Vaccine Date Status Refusal Reason SARS-CoV-2 (COVID-19) mRNA-1273 vaccine 03/04/21 Recorded SARS-CoV-2 (COVID-19) mRNA-1273 vaccine 01/05/21 Recorded influenza virus vaccine, inactivated 07/19/17 Given influenza virus vaccine, inactivated 04/15/16 Recorded Human Papillomavirus Vaccine 02/21/17 Given Human Papillomavirus Vaccine 10/14/16 Given tetanus/diphtheria/pertussis, acel(Tdap) 11/10/16 Given Medications folic acid 0.8 mg oral tablet 1 tablet = 0.8 mg, By Mouth, Daily, # 100 tablet, 4 Refills, Maintenance, 09/13/21 13:25:00 EST, Tablet, [facility] #[id number], Partial fill upon patient request if the prescription is for a schedule II opioid drug., 163, cm, 09/13/21 13:11:00 E... Start Date: 09/13/21 Status: OrderedPrenatal Multivitamins with Folic Acid 1 mg oral capsule See Instructions, TAKE ONE DAILY BY MOUTH, # 100 tablet, 2 Refills, Maintenance, 06/15/21 14:37:00 EST, [facility] #[id number], Partial fill upon patient request if the prescription is for a schedule II opioid drug., TAKE ONE DAILY BY MOUTH, 163,... Start Date: 06/15/21 Status: Ordered Problem List Condition Effective Dates Status Health Status Informant Constipation(Confirmed) Active COVID-19 affecting , Active antepartum(Confirmed) Generalized anxiety Active disorder(Confirmed)1 History of panic attacks(Confirmed) Active History of oligohydramnios(Confirmed)2 2012 Active Obese class II(Confirmed) Active Obesity(Confirmed) Active Depression: MDD (major depressive Active disorder), recurrent episode(Confirmed) Dermatitis, seborrheic(Confirmed) Active Uterine scar from previous Active delivery(Confirmed) Maternal varicella, Active non-immune(Confirmed) 1As per [facility] forms faxed on 04/16/18. Provider: Olive Cherys2per cosmetic assembler 2019 note Social History Social History Type Response Smoking Status Never (less than 100 in life time) entered on: 07/09/21 Sex
--- OUTSIDE RECORDS SUMMARY | 2022-07-16 15:25 | XMS_ITS | Continuity of Care Document ---
:1995 Author Organization [facility] Address [address] [place] [address], [address] [place] [id number]- Care Team Providers Name Role Phone Priscila DE JESUS, Selam Primary Care Physician Encounter [facility] Date(s): 11/01/21 - 11/08/21 [facility] [address], [address] [place] [id number] Attending Physician: Eva Donahue MD Referring Physician: Tho DE JESUS [OB], [...] 4 Refills, Maintenance, 09/13/21 13:25:00 EST, Tablet, [facility] #[id number], Partial fill upon patient request if the prescription is for a schedule II opioid drug., 163, cm, 09/13/21 13:11:00 E... Start Date: 09/13/21 Status: OrderedPrenatal Multivitamins with Folic Acid 1 mg oral capsule See Instructions, TAKE ONE DAILY BY MOUTH, # 100 tablet, 2 Refills, Maintenance, 06/15/21 14:37:00 EST, [facility] #[id number], Partial fill upon patient request if the [...] forms faxed on 04/16/18. Provider: Olive Moralesper urogynaecologist 2019 note Vital Signs Most recent to oldest [Reference Range]: 1 Height 163 cm (11/01/21 1:28 PM) Weight 97.27 kg (11/01/21 1:28 PM) Body Mass Index [18.5-24.99] 36.61 *>HHI* (11/01/21 1:28 PM) Blood Pressure [90-138/55-84 mm Hg] 120/62 mm Hg (11/01/21 1:28 PM) Blood pressure sites Arm, right (11/01/21 1:28 PM) Weight Obtained Via Standing scale (11/01/21 1:28 PM) Social History Social History Type Response Smoking Status Never (less than 100 in life time) entered on: 07/09/21 Sex
--- OUTSIDE RECORDS SUMMARY | 2022-07-16 15:25 | XMS_ITS | Continuity of Care Document ---
:1995 Author Organization [facility] Address [address] [place] [address]- Care Team Providers Name Role Phone Priscila DE JESUS, Selam Primary Care Physician Encounter [facility] Date(s): 06/03/21 - 07/03/21 [facility] [address], [place] [address] Allergies, Adverse Reactions, Alerts Substance Reaction [...] 0 Refills, Maintenance, 06/15/21 15:03:00 EST, Tablet, [facility] #[id number], Partial fill upon patient request if the prescription is for a schedule II opioid drug., 163[place], 06/15/21 14:24:00 EST... Start Date: 06/15/21 Status: Orderedketoconazole 2% topical shampoo See Instructions, 1 application Topically once-twice a week, for four weeks, # 240 mL, 1 Refills, Soft Stop, 06/03/21 8:40:00 EDT, Shampoo, [facility] #[id number], 1 application Topically once-twice a week, for four weeks, 163 cm, 05/10/21 14:44... Start Date: 06/03/21 Status: OrderedPrenatal Multivitamins with Folic Acid 1 mg oral capsule See Instructions, TAKE ONE DAILY BY MOUTH, # 100 tablet, 2 Refills, Maintenance, 06/15/21 14:37:00 [facility] #[id number], Partial fill upon patient request if the [...] forms faxed on 04/16/18. Provider: Olive Moralesper manager strategic 2019 note3 As per [facility] forms faxed on 04/16/18. Provider: Olive Kumari Social History Social History Type Response Smoking Status Never smoker; Tobacco user i n household: No entered on: 02/26/15 Sex
--- OUTSIDE RECORDS SUMMARY | 2022-07-16 15:25 | XMS_ITS | Continuity of Care Document ---
:1995 Author Organization [facility] Address [address] [place] [address]- Care Team Providers Name Role Phone Priscila DE JESUS, Selam Primary Care Physician Encounter [facility] Date(s): 10/04/19 - 10/14/19 [facility] [address] [place] [address]- [facility] Attending Physician: Xiang Perez Admitting Physician: AdmtrXiang Referring Physician: Admtr Ar8 Allergies, Adverse Reactions, Alerts Substance Reaction Severity Status NKA Active Immunizations Given and Recorded Vaccine Date Status Refusal Reason influenza virus vaccine, inactivated 07/19/17 Given Human Papillomavirus Vaccine 02/21/17 Given Human Papillomavirus Vaccine 10/14/16 Given tetanus/diphtheria/pertussis, acel(Tdap) 11/10/16 Given Medications ketoconazole 2% topical shampoo See Instructions, 1 application Topically once-twice a week, for four weeks, # 240 mL, 2 Refills, Soft Stop, 10/04/19 16:29:00 EST, Shampoo, [id number], 1 application Topically once-twice a week, for four weeks, 163, cm, 09/18/19 15:31:00 EST,... Start Date: 10/04/19 Status: Ordered Problem List Condition Effective Dates Status Health Status Informant Right ovarian cyst(Confirmed) Active Generalized anxiety Active disorder(Confirmed)1 History of panic attacks(Confirmed) Active Severe obesity(Confirmed) Active Cannabis abuse, mild(Confirmed)2 Active Dermatitis, seborrheic(Confirmed) Active 1As per [facility] forms faxed on 04/16/18. Provider: Olive Cherys2As per [facility] forms faxed on 04/16/18. Provider: Olive Kumari Social History Social History Type Response Smoking Status Never smoker; Tobacco user i n household: No entered on: 02/26/15 Sex
--- OUTSIDE RECORDS SUMMARY | 2022-07-16 15:25 | XMS_ITS | Continuity of Care Document ---
:[address] [facility] Address [address] [place] [address]- Care Team Providers Name Role Phone Priscila DE JESUS, Selam Primary Care Physician Encounter [facility] Date(s): 06/15/21 - 07/15/21 [facility] [address] [place], [place] [address] Allergies, Adverse Reactions, Alerts Substance Reaction Severity [...] 0 Refills, Maintenance, 06/15/21 15:03:00 EST, Tablet, [facility] #[id number], Partial fill upon patient request if the prescription is for a schedule II opioid drug., 163, cm, 06/15/21 14:24:00 EST... Start Date: 06/15/21 Status: Orderedketoconazole 2% topical shampoo See Instructions, 1 application Topically once-twice a week, for four weeks, # 240 mL, 1 Refills, Soft Stop, 06/03/21 8:40:00 EDT, Shampoo, [facility] #[id number], 1 application Topically once-twice a week, for four weeks, 163, cm, 05/10/21 14:44... Start Date: 06/03/21 Status: OrderedPrenatal Multivitamins with Folic Acid 1 mg oral capsule See Instructions, TAKE ONE DAILY BY MOUTH, # 100 tablet, 2 Refills, Maintenance, 06/15/21 14:37:00 EST, [facility] #[id number], Partial fill upon patient request if the prescription is for a schedule II opioid drug., TAKE ONE DAILY BY MOUTH, 163,... Start Date: 06/15/21 Status: OrderedUnisom 25 mg oral tablet 1 tablet = 25 mg, By Mouth, Daily at bedtime, PRN for sleep, # 30 tablet, 0 Refills, Maintenance, 07/05/21 11:55:00 EST, Tablet, [facility] #[id number], Partial fill upon patient request if the prescription is for a schedule II opioid drug., 163,... Start Date: 07/05/21 Status: OrderedVitamin B6 25 mg oral tablet 1 tablet = 25 mg, By Mouth, 3 times a day, # 90 tablet, 0 Refills, Maintenance, 07/05/21 11:55:00 EST, [facility] #[id number], Partial fill upon patient request if the prescription is for a schedule II opioid drug., 163, cm, 06/15/21 14:24:00 EST... Start Date: 07/05/21 Status: Ordered Problem List Condition Effective Dates Status Health Status Informant Constipation(Confirmed) Active Ovarian cyst, right(Confirmed) Active Generalized anxiety Active disorder(Confirmed)1 History of panic attacks(Confirmed) Active History of oligohydramnios(Confirmed)2 2012 Active Anemia, iron deficiency(Confirmed) Active Cannabis abuse, mild(Confirmed)3 Active Obesity(Confirmed) Active Depression: MDD (major depressive Active disorder), recurrent episode(Confirmed) Dermatitis, seborrheic(Confirmed) Active 1As per [facility] forms faxed on 04/16/18. Provider: Olive Moralesper glass enamel mixer 2019 note3 As per [facility] forms faxed on 04/16/18. Provider: Olive Kumari Social History Social History Type Response Smoking Status Never (less than 100 in life time) entered on: 07/09/21 Sex
--- OUTSIDE RECORDS SUMMARY | 2022-07-16 15:25 | XMS_ITS | Continuity of Care Document ---
:1995 Author Organization [facility] Address [address] [place] [address], [address] [place] [address]- Care Team Providers Name Role Phone Priscila DE JESUS, Selam Primary Care Physician [id number] - 07[facility]16/[facility] [address], [address] [place] [id number] Attending Physician: Eva Donahue MD Referring Physician: Selam Francois MD Allergies, Adverse Reactions, Alerts Substance Reaction Severity [...] 0 Refills, Maintenance, 06/15/21 15:03:00 EST, Tablet, [facility] #[id number], Partial fill upon patient request if the prescription is for a schedule II opioid drug., 163, cm, 06/15/21 14:24:00 EST... Start Date: 06/15/21 Status: Orderedketoconazole 2% topical shampoo See Instructions, 1 application Topically once-twice a week, for four weeks, # 240 mL, 1 Refills, Soft Stop, 06/03/21 8:40:00 EDT, Shampoo, [facility] #[id number], 1 application Topically once-twice a week, for four weeks, 163, cm, 05/10/21 14:44... Start Date: 06/03/21 Status: OrderedPrenatal Multivitamins with Folic Acid 1 mg oral capsule See Instructions, TAKE ONE DAILY BY MOUTH, # 100 tablet, 2 Refills, Maintenance, 06/15/21 14:37:00 EST, [facility] #[id number], Partial fill upon patient request if the prescription is for a schedule II opioid drug., TAKE ONE DAILY BY MOUTH, 163,... Start Date: 06/15/21 Status: OrderedUnisom 25 mg oral tablet 1 tablet = 25 mg, By Mouth, Daily at bedtime, PRN for sleep, # 30 tablet, 0 Refills, Maintenance, 07/05/21 11:55:00 EST, Tablet, [facility] #[id number], Partial fill upon patient request if the prescription is for a schedule II opioid drug., 163,... Start Date: 07/05/21 Status: OrderedVitamin B6 25 mg oral tablet 1 tablet = 25 mg, By Mouth, 3 times a day, # 90 tablet, 0 Refills, Maintenance, 07/05/21 11:55:00 EST, [facility] #[id number], Partial fill upon patient request if the [...] forms faxed on 04/16/18. Provider: Olive Moralesper website programmer 2019 note3 As per [facility] forms faxed on 04/16/18. Provider: Olive Kumari Vital Signs Most recent to oldest [Reference Range]: 1 Height 163 cm (07/09/21 9:28 AM) Social History Social History Type Response Smoking Status Never (less than 100 in life time) entered on: 07/09/21 Sex
--- OUTSIDE RECORDS SUMMARY | 2022-07-16 15:25 | XMS_ITS | Continuity of Care Document ---
:1995 Author Organization [facility] Address [address] [place] [address]- Care Team Providers Name Role Phone Not on Staff, PCP Primary Care Physician Unavailable Encounter [facility] Date(s): 02/11/22 - 02/11/[address] [address] Discharge Disposition: A-D/C Home Attending Physician: Ho León MD Admitting Physician: Ho León MD Referring Physician: Ho León MD Allergies, Adverse Reactions, Alerts No Known [...] 4 Refills, Maintenance, 09/13/21 13:25:00 EST, Tablet, [facility][id number], Partial fill upon patient request if the prescription is for a schedule II opioid drug., 163, cm, 09/13/21 13:11:00 E... Start Date: 09/13/21 Status: Orderedketoconazole 2% topical shampoo 1 application, Topically, Once, PRN as needed, # 120 mL, 0 Refills, Soft Stop, 11/24/21 16:13:00 EDT, Shampoo, [facility] #[id number], Partial fill upon patient request if the prescription is for a schedule II opioid drug., 1 application Topicall... Start Date: 11/24/21 Status: OrderedPrenatal Multivitamins with Folic Acid 1 mg oral capsule See Instructions, TAKE ONE DAILY BY MOUTH, # 100 tablet, 2 Refills, Maintenance, 06/15/21 14:37:00 EST, [facility] #[id number], Partial fill upon patient request if the [...] forms faxed on 04/16/18. Provider: Olive Moralesper php consultant 2019 note Vital Signs Most recent to oldest [Reference Range]: 1 Weight 107.9 kg (02/11/22 6:04 AM) Oxygen Saturation [94-100 %] 100 % (02/11/22 6:04 AM) Blood Pressure [90-138/55-84 mm Hg] 126/68 mm Hg (02/11/22 6:04 AM) Respiratory Rate [16-30 br/min] 18 br/min (02/11/22 6:04 AM) Temperature [96.8-100.4 DegF] 98.0 DegF (02/11/22 6:04 AM) Mode of Delivery (Oxygen) Room air (02/11/22 6:04 AM) Blood pressure sites Arm, right (02/11/22 6:04 AM) Temperature Route Oral (02/11/22 6:04 AM) Weight Obtained Via Standing scale (02/11/22 6:04 AM) Social History Social History Type Response Smoking Status Never (less than 100 in life time) entered on: 07/09/21 Sex
--- OUTSIDE RECORDS SUMMARY | 2022-07-16 15:25 | XMS_ITS | Continuity of Care Document ---
:1995 Author Organization [facility] Address [address] [place] [address], [address] [place] [address]- Care Team Providers Name Role Phone Priscila DE JESUS, Selam Primary Care Physician Encounter [facility] Date(s): 01/24/22 - 01/31/22 [facility] [address] [place] [address], [address] [place] [id number] Attending Physician: Eva Donahue MD Allergies, Adverse [...] 4 Refills, Maintenance, 09/13/21 13:25:00 EST, Tablet, [facility] #[id number], Partial fill upon patient request if the prescription is for a schedule II opioid drug., 163, cm, 09/13/21 13:11:00 E... Start Date: 09/13/21 Status: Orderedketoconazole 2% topical shampoo 1 application, Topically, Once, PRN as needed, # 120 mL, 0 Refills, Soft Stop, 11/24/21 16:13:00 EDT, Shampoo, [facility] #[id number], Partial fill upon patient request if the prescription is for a schedule II opioid drug., 1 application Topicall... Start Date: 11/24/21 Status: OrderedPrenatal Multivitamins with Folic Acid 1 mg oral capsule See Instructions, TAKE ONE DAILY BY MOUTH, # 100 tablet, 2 Refills, Maintenance, 06/15/21 14:37:00 EST, [facility] #[id number], Partial fill upon patient request if the [...] forms faxed on 04/16/18. Provider: Olive Moralesper computer forensics technician 2019 note Vital Signs Most recent to oldest [Reference Range]: 1 Height 163 cm (01/24/22 1:12 PM) Weight 108.18 kg (01/24/22 1:12 PM) Body Mass Index [18.5-24.99] 40.72 *>HHI* (01/24/22 1:12 PM) Blood Pressure [90-138/55-84 mm Hg] 121/73 mm Hg (01/24/22 1:12 PM) Blood pressure sites Arm, left (01/24/22 1:12 PM) Weight Obtained Via Standing scale (01/24/22 1:12 PM) Social History Social History Type Response Smoking Status Never (less than 100 in life time) entered on: 07/09/21 Sex
--- OUTSIDE RECORDS SUMMARY | 2022-07-16 15:25 | XMS_ITS | Continuity of Care Document ---
:1995 Author Organization [facility] Address [address] [place] [address], [address] [place] [address]- Care Team Providers Name Role Phone Olman Wheeler MD Primary Care Physician Encounter [facility] Date(s): 04/29/22 - 05/29/22 [facility] [address] [place] [address], [address] [place] [id number] Attending Physician: Xiang Perez Admitting Physician: AdmtrXiang [...] 50 tablet, Refills 0, Tot. Refills 0, Jneni... Start Date: 02/23/22 Status: OrderedCompression Stockings See Instructions, # 2 each, Refills 0, Tot. Refills 0, Maintenance, surgical, calf length 20-30 mm Hg, 12/06/21 11:55:00 EDT, Supply Start Date: 12/06/21 Status: OrderedDiflucan 150 mg oral tablet 1 tablet = 150 mg, By Mouth, Once, # 1 tablet, 0 Refills, Soft Stop, 04/19/22 11:15:00 EDT, Tablet, [facility] #[id number], Partial fill upon patient request if the prescription is for a schedule II opioid drug., 163, cm, 04/15/22 16:06:00 EDT, H... Start Date: 04/19/22 Status: Ordereddocusate sodium 100 mg oral tablet = 100 mg, By Mouth, 2 times a day, # 60 tablet, 0 Refills, Maintenance, 02/23/22 6:32:00 EDT, Tablet, [facility] #[id number], Partial fill upon patient request if the prescription is for a schedule II opioid drug., 163, [place], 02/23/22 0:05:00 EDT,... Start Date: 02/23/22 Status: Orderedfamotidine 20 mg oral tablet 20 mg, 1, tablet, By Mouth, Daily, # 30 tablet, Refills 0, Tot. Refills 0, Maintenance, 01/12/22 9:47:00 EDT, Route to Pharmacy Electronically, [facility] #[id number], Partial fill upon patient request if the prescription is for a schedule II opi... Start Date: 01/12/22 Stop Date: 02/11/22 Status: Orderedfolic acid 0.8 mg oral tablet 1 tablet = 0.8 mg, By Mouth, Daily, # 100 tablet, 4 Refills, Maintenance, 09/13/21 13:25:00 EST, Tablet, [facility] #[id number], Partial fill upon patient request if the prescription is for a schedule II opioid drug., 163, cm, 09/13/21 13:11:00 E... Start Date: 09/13/21 Status: Orderedhydrocortisone 2.5% topical ointment 1 application, Topically, 3 times a day, # 28.35 Gm, 0 Refills, Maintenance, 03/02/22 13:36:00 EDT, Ointment, [facility] #[id number], Partial fill upon patient request if the [...] 4 Refills,Soft Stop, 05/04/22 12:43:00 EDT, Shampoo, [facility] #[id number], Partial fill upon patient request if the prescription is for a schedule II opi... Start Date: 05/04/22 Status: OrderedoxyCODONE 5 mg oral tablet 5 mg, 1, tablet, By Mouth, Every 3 hours, PRN, (7-10), # 7 tablet, Refills 0, Tot. Refills 0, Maintenance, Pain , Severe, 02/23/22 6:32:00 EDT, Route to Pharmacy Electronically, [facility] #[id number], Partial fill upon patient request if the pre... Start Date: 02/23/22 Status: OrderedPrenatal Multivitamins with Folic Acid 1 mg oral capsule See Instructions, TAKE ONE DAILY BY MOUTH, # 100 tablet, 2 Refills, Maintenance, 06/15/21 14:37:00 EST, [facility] #[id number], Partial fill upon patient request if the prescription is for a schedule II opioid drug., TAKE ONE DAILY BY MOUTH, 163,... Start Date: 06/15/21 Status: Orderedsertraline 25 mg oral tablet 1 tablet = 25 mg, By Mouth, Daily, 1 tab po qd x 1 week. If doing well, increase to bid, # 90 tablet, 0 Refills, Maintenance, 04/15/22 16:42:00 EDT, Tablet, [facility] #[id number], Partial fill upon patient request if the prescription is for a sc... Start Date: 04/15/22 Status: Orderedsertraline 50 mg oral tablet 1 tablet = 50 mg, By Mouth, Daily, # 90 tablet, 0 Refills, Maintenance, 04/29/22 12:34:00 EDT, Tablet, [facility] #[id number], Partial fill upon patient request if the prescription is for a schedule II opioid drug., 163, cm, 04/15/22 16:06:00 EDT... Start Date: 04/29/22 Status: Orderedsimethicone 80 mg oral tablet, chewable 80 mg, Chew, 3 times a day, PRN, # 36 tablet, Refills 0, Tot. Refills 0, Maintenance, Gas, 02/23/22 6:32:00 EDT, Route to Pharmacy Electronically, [facility] #[id number], Partial fill upon patientrequest if the prescription [...] forms faxed on 04/16/18. Provider: Olive Moralesper pinking sewing machine operator 2019 note Social History Social History Type Response Smoking Status Never (less than 100 in life time) entered on: 07/09/21 Sex Patient Care team information PersonnelName: Olman Wheeler MD Address: Address: [address] [place] [id number]
--- OUTSIDE RECORDS SUMMARY | 2022-07-16 15:25 | XMS_ITS | Continuity of Care Document ---
:1995 Author Organization [facility] Address [address] [place] [address], [address] [place] [address]- Care Team Providers Name Role Phone Olman Wheeler MD Primary Care Physician Encounter [facility] Date(s): 02/03/22 - 03/05/22 [facility] [address] [place] [address], [address] [place] [id number] Allergies, Adverse Reactions, Alerts [...] 0 Refills, Maintenance, 02/23/22 6:32:00 EDT, Tablet, [facility] #[id number], Partial fill upon patient request if the prescription is for a schedule II opioid drug., [place], 02/23/22 0:05:00 EDT,... Start Date: 02/23/22 Status: Orderedfolic acid 0.8 mg oral tablet 1 tablet = 0.8 mg, By Mouth, Daily, # 100 tablet, 4 Refills, Maintenance, 09/13/21 13:25:00 EST, Tablet, [facility] #[id number], Partial fill upon patient request if the prescription is for a schedule II opioid drug., [place], 09/13/21 13:11:00 E... Start Date: 09/13/21 Status: Orderedhydrocortisone 2.5% topical ointment 1 application, Topically, 3 times a day, # 28.35 Gm, 0 Refills, Maintenance, 03/02/22 13:36:00 EDT, Ointment, [facility] #[id number], Partial fill upon patient request if the [...] Refills, Soft Stop, 11/24/21 16:13:00 EDT, Shampoo, [facility] #[id number], Partial fill upon patient request if the prescription is for a schedule II opioid drug., 1 application Topicall... Start Date: 11/24/21 Status: OrderedoxyCODONE 5 mg oral tablet 5 mg, 1, tablet, By Mouth, Every 3 hours, PRN, (7-10), # 7 tablet, Refills 0, Tot. Refills 0, Maintenance, Pain , Severe, 02/23/22 6:32:00 EDT, Route to Pharmacy Electronically, [facility] #[id number], Partial fill upon patient request if the pre... Start Date: 02/23/22 Status: OrderedPrenatal Multivitamins with Folic Acid 1 mg oral capsule See Instructions, TAKE ONE DAILY BY MOUTH, # 100 tablet, 2 Refills, Maintenance, 06/15/21 14:37:00 EST, [facility] #[id number], Partial fill upon patient request if the prescription is for a schedule II opioid drug., TAKE ONE DAILY BY MOUTH, 163,... Start Date: 06/15/21 Status: Orderedsimethicone 80 mg oral tablet, chewable 80 mg, Chew, 3 times a day, PRN, # 36 tablet, Refills 0, Tot. Refills 0, Maintenance, Gas, 02/23/22 6:32:00 EDT, Route to Pharmacy Electronically, [facility] #[id number], Partial fill upon patientrequest if the prescription [...] forms faxed on 04/16/18. Provider: Olive Moralesper straddle bug driver 2019 note Social History Social History Type Response Smoking Status Never (less than 100 in life time) entered on: 07/09/21 Sex
--- OUTSIDE RECORDS SUMMARY | 2022-07-16 15:25 | XMS_ITS | Continuity of Care Document ---
:1995 Author Organization [facility] Address [address] [place] [address]- Care Team Providers Name Role Phone Priscila DE JESUS, Selam Primary Care Physician [facility]counter [facility] Date(s): 06/15/21 - 07/23/21 [facility] [address], [place] [address] Attending Physician: Not on Staff, Attending MD Allergies, Adverse Reactions, Alerts Substance Reaction [...] 0 Refills, Maintenance, 06/15/21 15:03:00 EST, Tablet, [facility] #[id number], Partial fill upon patient request if the prescription is for a schedule II opioid drug., 163, cm, 06/15/21 14:24:00 EST... Start Date: 06/15/21 Status: Orderedketoconazole 2% topical shampoo See Instructions, 1 application Topically once-twice a week, for four weeks, # 240 mL, 1 Refills, Soft Stop, 06/03/21 8:40:00 EDT, Shampoo, [facility] #[id number], 1 application Topically once-twice a week, for four weeks, 163, cm, 05/10/21 14:44... Start Date: 06/03/21 Status: OrderedPrenatal Multivitamins with Folic Acid 1 mg oral capsule See Instructions, TAKE ONE DAILY BY MOUTH, # 100 tablet, 2 Refills, Maintenance, 06/15/21 14:37:00 EST, [facility] #[id number], Partial fill upon patient request if the prescription is for a schedule II opioid drug., TAKE ONE DAILY BY MOUTH, 163,... Start Date: 06/15/21 Status: OrderedUnisom 25 mg oral tablet 1 tablet = 25 mg, By Mouth, Daily at bedtime, PRN for sleep, # 30 tablet, 0 Refills, Maintenance, 07/05/21 11:55:00 EST, Tablet, [facility] #[id number], Partial fill upon patient request if the prescription is for a schedule II opioid drug., 163,... Start Date: 07/05/21 Status: OrderedVitamin B6 25 mg oral tablet 1 tablet = 25 mg, By Mouth, 3 times a day, # 90 tablet, 0 Refills, Maintenance, 07/05/21 11:55:00 EST, [facility] #[id number], Partial fill upon patient request if the prescription is for a schedule II opioid drug., 163, jersey, 06/15/21 14:24:00 EST... Start Date: 07/05/21 Status: [...] forms faxed on 04/16/18. Provider: Olive Moralesper sdv pilot/navigator/dds operator 2019 note3 As per [facility] forms faxed on 04/16/18. Provider: Olive Kumari Social History Social History Type Response Smoking Status Never (less than 100 in life time) entered on: 07/09/21 Sex
--- OUTSIDE RECORDS SUMMARY | 2022-07-16 15:25 | XMS_ITS | Continuity of Care Document ---
:1995 Author Organization [facility] Address [address] [place] [address]- Care Team Providers Name Role Phone Selam Francois MD Primary Care Physician Encounter [facility] Date(s): 09/08/21 - 10/08/21 [facility] [address] [place], [place] [address] Allergies, Adverse Reactions, Alerts No Known Allergies Immunizations Given and Recorded Vaccine Date Status Refusal Reason SARS-CoV-2 (COVID-19) mRNA-1273 vaccine 03/04/21 Recorded SARS-CoV-2 (COVID-19) mRNA-1276 vaccine 01/05/21 Recorded influenza virus vaccine, inactivated 07/19/17 Given influenza virus vaccine, inactivated 04/15/16 Recorded Human Papillomavirus Vaccine 02/21/17 Given Human Papillomavirus Vaccine 10/14/16 Given tetanus/diphtheria/pertussis, acel(Tdap) 11/10/16 Given Medications folic acid 0.8 mg oral tablet 1 tablet = 0.8 mg, By Mouth, Daily, # 100 tablet, 4 Refills, Maintenance, 09/13/21 13:25:00 EST, Tablet, [facility] #[id number], Partial fill upon patient request if the prescription is for a schedule II opioid drug., 163, cm, 09/13/21 13:11:00 E... Start Date: 09/13/21 Status: OrderedPrenatal Multivitamins with Folic Acid 1 mg oral capsule See Instructions, TAKE ONE DAILY BY MOUTH, # 100 tablet, 2 Refills, Maintenance, 06/15/21 14:37:00 EST, [facility] #[id number], Partial fill upon patient request if the [...] forms faxed on 04/16/18. Provider: Olive Cherys2per dedicated regional driver 2019 note Social History Social History Type Response Smoking Status Never (less than 100 in life time) entered on: 07/09/21 Sex
--- OUTSIDE RECORDS SUMMARY | 2022-07-16 15:26 | XMS_ITS | Continuity of Care Document ---
:1995 Author Organization [facility] Address [address] [place] [address], [address] [place] [address]- Care Team Providers Name Role Phone Liam DE JESUS, Olman Primary Care Physician Encounter [facility] Date(s): 10/19/21 - 02/16/22 [facility] [address] [place] [address], [address] [place] [id number] Attending Physician: Tho DE JESUS [OB], Joanna Moya [...] 4 Refills, Maintenance, 09/13/21 13:25:00 EST, Tablet, [facility] #[id number], Partial fill upon patient request if the prescription is for a schedule II opioid drug., 163, cm, 09/13/21 13:11:00 E... Start Date: 09/13/21 Status: Orderedketoconazole 2% topical shampoo 1 application, Topically, Once, PRN as needed, # 120 mL, 0 Refills, Soft Stop, 11/24/21 16:13:00 EDT, Shampoo, [facility] #[id number], Partial fill upon patient request if the prescription is for a schedule II opioid drug., 1 application Topicall... Start Date: 11/24/21 Status: OrderedPrenatal Multivitamins with Folic Acid 1 mg oral capsule See Instructions, TAKE ONE DAILY BY MOUTH, # 100 tablet, 2 Refills, Maintenance, 06/15/21 14:37:00 EST, [facility] #[id number], Partial fill upon patient request if the [...] forms faxed on 04/16/18. Provider: Olive Cherys2per cardroom attendant 2019 note Social History Social History Type Response Smoking Status Never (less than 100 in life time) entered on: 07/09/21 Sex
--- OUTSIDE RECORDS SUMMARY | 2022-07-16 15:26 | XMS_ITS | Continuity of Care Document ---
:1995 Author Organization [facility] Address [address] [place] [address]- Care Team Providers Name Role Phone Priscila DE JESUS, Selam Primary Care Physician Encounter [facility] Date(s): 03/11/21 - 04/10/21 [facility] [address] [place] [address]- Allergies, Adverse Reactions, Alerts Substance Reaction Severity [...] 2 Refills, Maintenance, 03/11/21 9:14:00 EDT, Tablet, [facility] #[id number], Partial fill upon patient request if the [...] forms faxed on 04/16/18. Provider: Olive Moralesper pricing supervisor 2019 note3 As per [facility] forms faxed on 04/16/18. Provider: Olive Kumari Social History Social History Type Response Smoking Status Never smoker; Tobacco user i n household: No entered on: 02/26/15 Sex
--- OUTSIDE RECORDS SUMMARY | 2022-07-16 15:26 | XMS_ITS | Continuity of Care Document ---
:1995 Author Organization [facility] Address [address] [place] [address], [address] [place] [address]- Care Team Providers Name Role Phone Liam DE JESUS, Olman Primary Care Physician Encounter [facility] Date(s): 03/02/22 - 04/01/22 [facility] [address], [address] [place] [id number] Allergies, Adverse Reactions, Alerts No Known [...] 0 Refills, Maintenance, 02/23/22 6:32:00 EDT, Tablet, [facility] #[id number], Partial fill upon patient request if the prescription is for a schedule II opioid drug., 163[place], 02/23/22 0:05:00 EDT,... Start Date: 02/23/22 Status: Orderedfolic acid 0.8 mg oral tablet 1 tablet = 0.8 mg, By Mouth, Daily, # 100 tablet, 4 Refills, Maintenance, 09/13/21 13:25:00 EST, Tablet, [facility] #[id number], Partial fill upon patient request if the prescription is for a schedule II opioid drug., 163, [place], 09/13/21 13:11:00 E... Start Date: 09/13/21 Status: Orderedhydrocortisone 2.5% topical ointment 1 application, Topically, 3 times a day, # 28.35 Gm, 0 Refills, Maintenance, 03/02/22 13:36:00 EDT, [id number], Partial fill upon patient request if the [...] 0 Refills, Soft Stop, 11/24/21 16:13:00 EDT, [facility][id number], Partial fill upon patient request if the prescription is for a schedule II opioid drug., 1 application Topicall... Start Date: 11/24/21 Status: OrderedoxyCODONE 5 mg oral tablet 5 mg, 1, tablet, By Mouth, Every 3 hours, PRN, (7-10), # 7 tablet, Refills 0, Tot. Refills 0, Maintenance, Pain , Severe, 02/23/22 6:32:00 EDT, Route to Pharmacy Electronically, [facility] #[id number], Partial fill upon patient request if the pre... Start Date: 02/23/22 Status: OrderedPrenatal Multivitamins with Folic Acid 1 mg oral capsule See Instructions, TAKE ONE DAILY BY MOUTH, # 100 tablet, 2 Refills, Maintenance, 06/15/21 14:37:00 EST, [facility] #[id number], Partial fill upon patient request if the prescription is for a schedule II opioid drug., TAKE ONE DAILY BY MOUTH, 163,... Start Date: 06/15/21 Status: Orderedsimethicone 80 mg oral tablet, chewable 80 mg, Chew, 3 times a day, PRN, # 36 tablet, Refills 0, Tot. Refills 0, Maintenance, Gas, 02/23/22 6:32:00 EDT, Route to Pharmacy Electronically, [facility] #[id number], Partial fill upon patientrequest if the prescription [...] forms faxed on 04/16/18. Provider: Olive Crawford pressure sealer and tester 2019 note Social History Social History Type Response Smoking Status Never (less than 100 in life time) entered on: 07/09/21 Sex Care Team PersonnelName: Olman Wheeler MD Address: [address] [place] [address]
--- OUTSIDE RECORDS SUMMARY | 2022-07-16 15:26 | XMS_ITS | Continuity of Care Document ---
:1995 Author Organization [facility] Address [address] [place] [address], [address] [place] [address]- Care Team Providers Name Role Phone Liam DE JESUS, Olman Primary Care Physician En[facility] Date(s): 02/15/22 - 03/17/22 [facility] [address] [place] [address], [address] [place] [id number] Allergies, Adverse Reactions, Alerts No Known Allergies [...] 0 Refills, Maintenance, 02/23/22 6:32:00 EDT, Tablet, [facility] #[id number], Partial fill upon patient request if the prescription is for a schedule II opioid drug., 163[place], 02/23/22 0:05:00 EDT,... Start Date: 02/23/22 Status: Orderedfolic acid 0.8 mg oral tablet 1 tablet = 0.8 mg, By Mouth, Daily, # 100 tablet, 4 Refills, Maintenance, 09/13/21 13:25:00 EST, Tablet, [facility] #[id number], Partial fill upon patient request if the prescription is for a schedule II opioid drug., 163, jersey, 09/13/21 13:11:00 E... Start Date: 09/13/21 Status: Orderedhydrocortisone 2.5% topical ointment 1 application, Topically, 3 times a day, # 28.35 Gm, 0 Refills, Maintenance, 03/02/22 13:36:00 EDT, [facility][id number], Partial fill upon patient request if the [...] 0 Refills, Soft Stop, 11/24/21 16:13:00 EDT, [facility] #[id number], Partial fill upon patient request if the prescription is for a schedule II opioid drug., 1 application Topicall... Start Date: 11/24/21 Status: OrderedoxyCODONE 5 mg oral tablet 5 mg, 1, tablet, By Mouth, Every 3 hours, PRN, (7-10), # 7 tablet, Refills 0, Tot. Refills 0, Maintenance, Pain , Severe, 02/23/22 6:32:00 EDT, Route to Pharmacy Electronically, [facility] #[id number], Partial fill upon patient request if the pre... Start Date: 02/23/22 Status: OrderedPrenatal Multivitamins with Folic Acid 1 mg oral capsule See Instructions, TAKE ONE DAILY BY MOUTH, # 100 tablet, 2 Refills, Maintenance, 06/15/21 14:37:00 EST, [facility] #[id number], Partial fill upon patient request if the prescription is for a schedule II opioid drug., TAKE ONE DAILY BY MOUTH, 163,... Start Date: 06/15/21 Status: Orderedsimethicone 80 mg oral tablet, chewable 80 mg, Chew, 3 times a day, PRN, # 36 tablet, Refills 0, Tot. Refills 0, Maintenance, Gas, 02/23/22 6:32:00 EDT, Route to Pharmacy Electronically, [facility] #[id number], Partial fill upon patientrequest if the prescription [...] forms faxed on 04/16/18. Provider: Olive Moralesper global regulatory affairs manager 2019 note Social History Social History Type Response Smoking Status Never (less than 100 in life time) entered on: 07/09/21 Sex
--- OUTSIDE RECORDS SUMMARY | 2022-07-16 15:26 | XMS_ITS | Continuity of Care Document ---
:1995 Author Organization [facility] Address [address] [place] [address], [address] [place] [address]- Care Team Providers Name Role Phone Priscila DE JESUS, Selam Primary Care Physician En[facility] Date(s): 09/13/21 - 09/20/21 [facility] [address] [place] [address], [address] [place] [id number] Attending Physician: Tho DE JESUS [OB], Joanna Moya Referring Physician: Beth Francois DO Allergies, Adverse Reactions, Alerts No Known Allergies [...] 4 Refills, Maintenance, 09/13/21 13:25:00 EST, Tablet, [facility] #[id number], Partial fill upon patient request if the prescription is for a schedule II opioid drug., 163, cm, 09/13/21 13:11:00 E... Start Date: 09/13/21 Status: OrderedPrenatal Multivitamins with Folic Acid 1 mg oral capsule See Instructions, TAKE ONE DAILY BY MOUTH, # 100 tablet, 2 Refills, Maintenance, 06/15/21 14:37:00 EST, [facility] #[id number], Partial fill upon patient request if the [...] forms faxed on 04/16/18. Provider: Olive Cherys2per gynaecological oncologist 2019 note Vital Signs Most recent to oldest [Reference Range]: 1 Height 163 cm (09/13/21 1:11 PM) Weight 93.7 kg (09/13/21 1:11 PM) Body Mass Index [18.5-24.99] 35.27 *>HHI* (09/13/21 1:11 PM) Blood Pressure [90-138/55-84 mm Hg] 119/65 mm Hg (09/13/21 1:11 PM) Blood pressure sites Arm, right (09/13/21 1:11 PM) Dry Weight 93.7 kg (09/13/21 1:11 PM) Weight Obtained Via Standing scale (09/13/21 1:11 PM) Dry Weight Obtained Via Standing scale (09/13/21 1:11 PM) Social History Social History Type Response Smoking Status Never (less than 100 in life time) entered on: 07/09/21 Sex
--- OUTSIDE RECORDS SUMMARY | 2022-07-16 15:26 | XMS_ITS | Continuity of Care Document ---
:1995 Author Organization [facility] Address [address] [place] [address]- Care Team Providers Name Role Phone Priscila DE JESUS, Selam Primary Care Physician [facility] Date(s): 03/29/20 - 04/28/20 [facility] [address] [place] [address]- [facility] Attending Physician: Xiang Perez Admitting Physician: AdmtrXiang Referring Physician: Admtr, ArMari Allergies, Adverse Reactions, Alerts Substance Reaction Severity Status NKA Active Immunizations Given and Recorded Vaccine Date Status Refusal Reason influenza virus vaccine, inactivated 07/19/17 Given Human Papillomavirus Vaccine 02/21/17 Given Human Papillomavirus Vaccine 10/14/16 Given tetanus/diphtheria/pertussis, acel(Tdap) 11/10/16 Given Medications ketoconazole 2% topical shampoo See Instructions, 1 application Topically once-twice a week, for four weeks, # 240 mL, 2 Refills, Soft Stop, 04/15/20 8:50:00 EDT, Shampoo, [facility] #[id number], 1 application Topically once-twice a week, for four weeks, 163, cm, 03/29/20 9:09:... Start Date: 04/15/20 Status: Ordered Problem List Condition Effective Dates [...]
--- OUTSIDE RECORDS SUMMARY | 2022-07-16 15:26 | XMS_ITS | Continuity of Care Document ---
:1995 Author Organization [facility] Address [address] [place] [address]- Care Team Providers Name Role Phone Selam Francois MD Primary Care Physician Encounter [facility] Date(s): 12/21/21 - 12/21/[address] [address] Discharge Disposition: A-D/C Home Attending Physician: Tho DE JESUS [OB], Joanna Moya Admitting Physician: Tho DE JESUS [OB], Joanna Moya Referring Physician: Tho DE JESUS [OB], Joanna [...] 4 Refills, Maintenance, 09/13/21 13:25:00 EST, Tablet, [facility] #[id number], Partial fill upon patient request if the prescription is for a schedule II opioid drug., 163, cm, 09/13/21 13:11:00 E... Start Date: 09/13/21 Status: Orderedketoconazole 2% topical shampoo 1 application, Topically, Once, PRN as needed, # 120 mL, 0 Refills, Soft Stop, 11/24/21 16:13:00 EDT, Shampoo, [facility] #[id number], Partial fill upon patient request if the prescription is for a schedule II opioid drug., 1 application Topicall... Start Date: 11/24/21 Status: OrderedPrenatal Multivitamins with Folic Acid 1 mg oral capsule See Instructions, TAKE ONE DAILY BY MOUTH, # 100 tablet, 2 Refills, Maintenance, 06/15/21 14:37:00 EST, [facility] #[id number], Partial fill upon patient request if the [...] forms faxed on 04/16/18. Provider: Olive Moralesper farm mortgage agent 2019 note Vital Signs Most recent to oldest [Reference Range]: 1 2 Weight 105.1 kg (12/21/21 1:46 PM) Oxygen Saturation [94-100 %] 100 % (12/21/21 1:54 PM) Blood Pressure [90-138/55-84 mm Hg] 116/70 mm Hg 110/ 71 mm Hg (12/21/21 2:28 PM) (12/21/21 1:54 PM) Respiratory Rate [16-30 br/min] 16 br/min (12/21/21 1:54 PM) Temperature [96.8-100.4 DegF] 98.0 DegF (12/21/21 1:46 PM) Mode of Delivery (Oxygen) Room air (12/21/21 1:54 PM) Blood pressure sites Arm, left (12/21/21 1:54 PM) Temperature Route Oral (12/21/21 1:46 PM) Weight Obtained Via Standing scale (12/21/21 1:46 PM) Social History Social History Type Response Smoking Status Never (less than 100 in life time) entered on: 07/09/21 Sex
--- OUTSIDE RECORDS SUMMARY | 2022-07-16 15:26 | XMS_ITS | Continuity of Care Document ---
:1995 Author Organization [facility] Address [address] [place] [address], [address] [place] [address]- Care Team Providers Name Role Phone Priscila DE JESUS, Selam Primary Care Physician [facility] Date(s): 11/23/21 - 12/23/21 [facility] [address] [place] [address], [address] [place] [id number] Allergies, Adverse Reactions, Alerts No Known [...] 4 Refills, Maintenance, 09/13/21 13:25:00 EST, Tablet, [facility] #[id number], Partial fill upon patient request if the prescription is for a schedule II opioid drug., 163, cm, 09/13/21 13:11:00 E... Start Date: 09/13/21 Status: Orderedketoconazole 2% topical shampoo 1 application, Topically, Once, PRN as needed, # 120 mL, 0 Refills, Soft Stop, 11/24/21 16:13:00 EDT, Shampoo, [facility] #[id number], Partial fill upon patient request if the prescription is for a schedule II opioid drug., 1 application Topicall... Start Date: 11/24/21 Status: OrderedPrenatal Multivitamins with Folic Acid 1 mg oral capsule See Instructions, TAKE ONE DAILY BY MOUTH, # 100 tablet, 2 Refills, Maintenance, 06/15/21 14:37:00 EST, [facility] #[id number], Partial fill upon patient request if the [...] forms faxed on 04/16/18. Provider: Olive Cherys2per senior peoplesoft developer 2019 note Social History Social History Type Response Smoking Status Never (less than 100 in life time) entered on: 07/09/21 Sex
--- OUTSIDE RECORDS SUMMARY | 2022-07-16 15:26 | XMS_ITS | Continuity of Care Document ---
:[address] [facility] Address [address] [place] [address]- Care Team Providers Name Role Phone Priscila DE JESUS, Selam Primary Care Physician Encounter [facility] Date(s): 04/14/20 - 05/14/20 [facility] [address] [place] [address]- [facility] Allergies, Adverse Reactions, Alerts Substance Reaction Severity [...] Refills, Soft Stop, 04/15/20 8:50:00 EDT, Shampoo, [facility] #[id number], 1 application Topically once-twice a week, for four weeks, 163, cm, 03/29/20 9:09:... Start Date: 04/15/20 Status: Ordered Problem List Condition Effective Dates Status Health Status Informant Right ovarian cyst(Confirmed) Active Generalized anxiety Active disorder(Confirmed)1 History of panic attacks(Confirmed) Active Severe obesity(Confirmed) Active Cannabis abuse, mild(Confirmed)2 Active Dermatitis, seborrheic(Confirmed) Active 1As per [facility] forms faxed on 04/16/18. Provider: Olive York per [facility] forms faxed on 04/16/18. Provider: Olive Kumari Social History Social History Type Response Smoking Status Never smoker; Tobacco user i n household: No entered on: 02/26/15 Sex
--- OUTSIDE RECORDS SUMMARY | 2022-07-16 15:26 | XMS_ITS | Continuity of Care Document ---
:1995 Author Organization [facility] Address [address] [place] [address], [address] [place] [address]- Care Team Providers Name Role Phone Liam DE JESUS, Olman Primary Care Physician Encounter [facility] Date(s): 01/17/22 - 03/23/22 [facility] [address], [address] [place] [id number] Attending Physician: Godfrey DE JESUS, Eva [...] 0 Refills, Maintenance, 02/23/22 6:32:00 EDT, Tablet, [facility] #[id number], Partial fill upon patient request if the prescription is for a schedule II opioid drug., jersey Ferraro, 02/23/22 0:05:00 EDT,... Start Date: 02/23/22 Status: Orderedfolic acid 0.8 mg oral tablet 1 tablet = 0.8 mg, By Mouth, Daily, # 100 tablet, 4 Refills, Maintenance, 09/13/21 13:25:00 EST, Tablet, [facility] #[id number], Partial fill upon patient request if the prescription is for a schedule II opioid drug., 163jersey, 09/13/21 13:11:00 E... Start Date: 09/13/21 Status: Orderedhydrocortisone 2.5% topical ointment 1 application, Topically, 3 times a day, # 28.35 Gm, 0 Refills, Maintenance, 03/02/22 13:36:00 EDT, [facility][id number], Partial fill upon patient request if the [...] 0 Refills, Soft Stop, 11/24/21 16:13:00 EDT, [facility][id number], Partial fill upon patient request if the prescription is for a schedule II opioid drug., 1 application Topicall... Start Date: 11/24/21 Status: OrderedoxyCODONE 5 mg oral tablet 5 mg, 1, tablet, By Mouth, Every 3 hours, PRN, (7-10), # 7 tablet, Refills 0, Tot. Refills 0, Maintenance, Pain , Severe, 02/23/22 6:32:00 EDT, Route to Pharmacy Electronically, [facility] #[id number], Partial fill upon patient request if the pre... Start Date: 02/23/22 Status: OrderedPrenatal Multivitamins with Folic Acid 1 mg oral capsule See Instructions, TAKE ONE DAILY BY MOUTH, # 100 tablet, 2 Refills, Maintenance, 06/15/21 14:37:00 EST, [facility] #[id number], Partial fill upon patient request if the prescription is for a schedule II opioid drug., TAKE ONE DAILY BY MOUTH, 163,... Start Date: 06/15/21 Status: Orderedsimethicone 80 mg oral tablet, chewable 80 mg, Chew, 3 times a day, PRN, # 36 tablet, Refills 0, Tot. Refills 0, Maintenance, Gas, 02/23/22 6:32:00 EDT, Route to Pharmacy Electronically, [facility] #[id number], Partial fill upon patientrequest if the prescription [...] forms faxed on 04/16/18. Provider: Olive Cherys2per music engraver 2019 note Social History Social History Type Response Smoking Status Never (less than 100 in life time) entered on: 07/09/21 Sex
--- OUTSIDE RECORDS SUMMARY | 2022-07-16 15:26 | XMS_ITS | Continuity of Care Document ---
:[address] [facility] Address [address] [place] [address]- Care Team Providers Name Role Phone Priscila DE JESUS, Selam Primary Care Physician Encounter [facility] Date(s): 02/26/21 - 04/14/21 [facility] [address] [place], [place] [address] Attending Physician: Not on Staff, Attending MD [...] 2 Refills, Maintenance, 03/11/21 9:14:00 EDT, Tablet, [facility] #[id number], Partial fill upon patient request if the [...] forms faxed on 04/16/18. Provider: Olive Moralesper operations representative 2019 note3 As per [facility] forms faxed on 04/16/18. Provider: Olive Kumari Social History Social History Type Response Smoking Status Never smoker; Tobacco user i n household: No entered on: 02/26/15 Sex
--- OUTSIDE RECORDS SUMMARY | 2022-07-16 15:26 | XMS_ITS | Continuity of Care Document ---
:1995 Author Organization [facility] Address [address] [place] [address]- Care Team Providers Name Role Phone Priscila DE JESUS, Selam Primary Care Physician [place] [facility] Date(s): 08/03/21 - 09/03/21 [facility] [address] [place], [place] [address] Attending Physician: Reji CORDOVA, Brenda Thorpe Admitting Physician: Reji CORDOVA, Brenda Thorpe Allergies, Adverse Reactions, Alerts No Known Allergies [...] 0 Refills, Maintenance, 06/15/21 15:03:00 EST, Tablet, [facility] #[id number], Partial fill upon patient request if the prescription is for a schedule II opioid drug., 163, cm, 06/15/21 14:24:00 EST... Start Date: 06/15/21 Status: Orderedketoconazole 2% topical shampoo See Instructions, 1 application Topically once-twice a week, for four weeks, # 240 mL, 1 Refills, Soft Stop, 06/03/21 8:40:00 EDT, Shampoo, [facility] #[id number], 1 application Topically once-twice a week, for four weeks, 163, cm, 10/04/21 14:44... Start Date: 06/03/21 Status: OrderedPrenatal Multivitamins with Folic Acid 1 mg oral capsule See Instructions, TAKE ONE DAILY BY MOUTH, # 100 tablet, 2 Refills, Maintenance, 06/15/21 14:37:00 EST, [facility] #[id number], Partial fill upon patient request if the prescription is for a schedule II opioid drug., TAKE ONE DAILY BY MOUTH, 163,... Start Date: 06/15/21 Status: OrderedUnisom 25 mg oral tablet 1 tablet = 25 mg, By Mouth, Daily at bedtime, PRN for sleep, # 30 tablet, 0 Refills, Maintenance, 07/05/21 11:55:00 EST, Tablet, [facility] #[id number], Partial fill upon patient request if the prescription is for a schedule II opioid drug., 163,... Start Date: 07/05/21 Status: OrderedVitamin B6 25 mg oral tablet 1 tablet = 25 mg, By Mouth, 3 times a day, # 90 tablet, 0 Refills, Maintenance, 07/05/21 11:55:00 EST, [facility] #[id number], Partial fill upon patient request if the [...] forms faxed on 04/16/18. Provider: Olive Moralesper medium cycle salesperson 2019 note3 As per [facility] forms faxed on 04/16/18. Provider: Olive Kumari Social History Social History Type Response Smoking Status Never (less than 100 in life time) entered on: 07/09/21 Sex
--- OUTSIDE RECORDS SUMMARY | 2022-07-16 15:26 | XMS_ITS | Continuity of Care Document ---
:1995 Author Organization [facility] Address [address] [place] [address]- Care Team Providers Name Role Phone Priscila DE JESUS, Selam Primary Care Physician Encounter [facility] Date(s): 07/26/21 - 09/03/21 [facility] [address] [place], [place] [address] Attending Physician: Not on Staff, Attending MD Allergies, Adverse Reactions, Alerts No Known [...] 0 Refills, Maintenance, 06/15/21 15:03:00 EST, Tablet, [facility] #[id number], Partial fill upon patient request if the prescription is for a schedule II opioid drug., 163, cm, 06/15/21 14:24:00 EST... Start Date: 06/15/21 Status: Orderedketoconazole 2% topical shampoo See Instructions, 1 application Topically once-twice a week, for four weeks, # 240 mL, 1 Refills, Soft Stop, 06/03/21 8:40:00 EDT, Shampoo, [facility] #[id number], 1 application Topically once-twice a week, for four weeks, 163, cm, 05/10/21 14:44... Start Date: 06/03/21 Status: OrderedPrenatal Multivitamins with Folic Acid 1 mg oral capsule See Instructions, TAKE ONE DAILY BY MOUTH, # 100 tablet, 2 Refills, Maintenance, 06/15/21 14:37:00 EST, [facility] #[id number], Partial fill upon patient request if the prescription is for a schedule II opioid drug., TAKE ONE DAILY BY MOUTH, 163,... Start Date: 06/15/21 Status: OrderedUnisom 25 mg oral tablet 1 tablet = 25 mg, By Mouth, Daily at bedtime, PRN for sleep, # 30 tablet, 0 Refills, Maintenance, 07/05/21 11:55:00 EST, Tablet, [facility] #[id number], Partial fill upon patient request if the prescription is for a schedule II opioid drug., 163,... Start Date: 07/05/21 Status: OrderedVitamin B6 25 mg oral tablet 1 tablet = 25 mg, By Mouth, 3 times a day, # 90 tablet, 0 Refills, Maintenance, 07/05/21 11:55:00 EST, [facility] #[id number], Partial fill upon patient request if the [...] forms faxed on 04/16/18. Provider: Olive Moralesper casino change attendant 2019 note3 As per [facility] forms faxed on 04/16/18. Provider: Olive Kumari Social History Social History Type Response Smoking Status Never (less than 100 in life time) entered on: 07/09/21 Sex
--- OUTSIDE RECORDS SUMMARY | 2022-07-16 15:26 | XMS_ITS | Continuity of Care Document ---
:1995 Author Organization [facility] Address [address] [place] [address], [address] [place] [address]- Care Team Providers Name Role Phone Olman Wheeler MD Primary Care Physician [place] [facility] [id number] Date(s): 04/19/22 - 05/19/22 [facility] [address] [place] [address], [address] [place] [id number] Allergies, Adverse Reactions, Alerts No Known [...] Refills, Soft Stop, 04/19/22 11:15:00 EDT, Tablet, [facility] #[id number], Partial fill upon patient request if the prescription is for a schedule II opioid drug., jersey Ferraro, 04/15/22 16:06:00 EDT, H... Start Date: 04/19/22 Status: Ordereddocusate sodium 100 mg oral tablet = 100 mg, By Mouth, 2 times a day, # 60 tablet, 0 Refills, Maintenance, 02/23/22 6:32:00 EDT, Tablet, [facility] #[id number], Partial fill upon patient request if the prescription is for a schedule II opioid drug., 163jersey, 02/23/22 0:05:00 EDT,... Start Date: 02/23/22 Status: Orderedfamotidine 20 mg oral tablet 20 mg, 1, tablet, By Mouth, Daily, # 30 tablet, Refills 0, Tot. Refills 0, Maintenance, 01/12/22 9:47:00 EDT, Route to Pharmacy Electronically, [facility] #[id number], Partial fill upon patient request if the prescription is for a schedule II opi... Start Date: 01/12/22 Stop Date: 02/11/22 Status: Orderedfolic acid 0.8 mg oral tablet 1 tablet = 0.8 mg, By Mouth, Daily, # 100 tablet, 4 Refills, Maintenance, 09/13/21 13:25:00 EST, Tablet, [facility] #[id number], Partial fill upon patient request if the prescription is for a schedule II opioid drug., 163, jersey, 09/13/21 13:11:00 E... Start Date: 09/13/21 Status: Orderedhydrocortisone 2.5% topical ointment 1 application, Topically, 3 times a day, # 28.35 Gm, 0 Refills, Maintenance, 03/02/22 13:36:00 EDT, Ointment, [facility] #[id number], Partial fill upon patient request if the [...] 4 Refills,Soft Stop, 05/04/22 12:43:00 EDT, Shampoo, [facility] #[id number], Partial fill upon patient request if the prescription is for a schedule II opi... Start Date: 05/04/22 Status: OrderedoxyCODONE 5 mg oral tablet 5 mg, 1, tablet, By Mouth, Every 3 hours, PRN, (7-10), # 7 tablet, Refills 0, Tot. Refills 0, Maintenance, Pain , Severe, 02/23/22 6:32:00 EDT, Route to Pharmacy Electronically, [facility] #[id number], Partial fill upon patient request if the pre... Start Date: 02/23/22 Status: OrderedPrenatal Multivitamins with Folic Acid 1 mg oral capsule See Instructions, TAKE ONE DAILY BY MOUTH, # 100 tablet, 2 Refills, Maintenance, 06/15/21 14:37:00 EST, [facility] #[id number], Partial fill upon patient request if the prescription is for a schedule II opioid drug., TAKE ONE DAILY BY MOUTH, 163,... Start Date: 06/15/21 Status: Orderedsertraline 25 mg oral tablet 1 tablet = 25 mg, By Mouth, Daily, 1 tab po qd x 1 week. If doing well, increase to bid, # 90 tablet, 0 Refills, Maintenance, 04/15/22 16:42:00 EDT, Tablet, [facility] #[id number], Partial fill upon patient request if the prescription is for a sc... Start Date: 04/15/22 Status: Orderedsertraline 50 mg oral tablet 1 tablet = 50 mg, By Mouth, Daily, # 90 tablet, 0 Refills, Maintenance, 04/29/22 12:34:00 EDT, Tablet, [facility] #[id number], Partial fill upon patient request if the prescription is for a schedule II opioid drug., 163, cm, 04/15/22 16:06:00 EDT... Start Date: 04/29/22 Status: Orderedsimethicone 80 mg oral tablet, chewable 80 mg, Chew, 3 times a day, PRN, # 36 tablet, Refills 0, Tot. Refills 0, Maintenance, Gas, 02/23/22 6:32:00 EDT, Route to Pharmacy Electronically, [facility] #[id number], Partial fill upon patientrequest if the prescription [...] forms faxed on 04/16/18. Provider: Olive Cherys2per social media director 2019 note Social History Social History Type Response Smoking Status Never (less than 100 in life time) entered on: 07/09/21 Sex Patient Care team information PersonnelName: Olman Wheeler MD Address: Address: [address] [place] [address]
--- OUTSIDE RECORDS SUMMARY | 2022-07-16 15:26 | XMS_ITS | Continuity of Care Document ---
:1995 Author Organization [facility] Address [address] [place] [address]- Care Team Providers Name Role Phone Priscila DE JESUS, Selam Primary Care Physician Encounter [facility] Date(s): 08/18/20 - 09/17/20 [facility] [address] [place], [place] [email or web address] Allergies, Adverse Reactions, Alerts Substance Reaction Severity Status NKA Active Immunizations Given and Recorded Vaccine Date Status Refusal Reason influenza virus vaccine, inactivated 07/19/17 Given Human Papillomavirus Vaccine 02/21/17 Given Human Papillomavirus Vaccine 10/14/16 Given tetanus/diphtheria/pertussis, acel(Tdap) 11/10/16 Given Medications ketoconazole 2% topical shampoo See Instructions, 1 application Topically once-twice a week, for four weeks, # 240 mL, 2 Refills, Soft Stop, 08/18/20 13:28:00 EST, [facility]ampoo, [facility][id number], 1 application Topically once-twice a week, for four weeks, 163, cm, 03/29/20 9:09... Start Date: 08/18/20 Status: Ordered Problem List Condition Effective Dates [...]
--- OUTSIDE RECORDS SUMMARY | 2022-07-16 15:26 | XMS_ITS | Continuity of Care Document ---
:1995 Author Organization [facility] Address [address] [place] [address], [address] [place] [address]- Care Team Providers Name Role Phone Priscila DE JESUS, Selam Primary [facility] Phys[id number] Date[facility] - 01[facility]31/[facility] [address] [place] [address], [address] [place] [id number] Attending Physician: Marianela Whyte MD Referring Physician: Godfrey DE JESUS, Eva Daniel Allergies, [...] 4 Refills, Maintenance, 09/13/21 13:25:00 EST, Tablet, [facility] #[id number], Partial fill upon patient request if the prescription is for a schedule II opioid drug., 163, cm, 09/13/21 13:11:00 E... Start Date: 09/13/21 Status: Orderedketoconazole 2% topical shampoo 1 application, Topically, Once, PRN as needed, # 120 mL, 0 Refills, Soft Stop, 11/24/21 16:13:00 EDT, Shampoo, [facility] #[id number], Partial fill upon patient request if the prescription is for a schedule II opioid drug., 1 application Topicall... Start Date: 11/24/21 Status: OrderedPrenatal Multivitamins with Folic Acid 1 mg oral capsule See Instructions, TAKE ONE DAILY BY MOUTH, # 100 tablet, 2 Refills, Maintenance, 06/15/21 14:37:00 EST, [facility] #[id number], Partial fill upon patient request if the [...] forms faxed on 04/16/18. Provider: Olive Cherys2per newspaper managing editor 2019 note Social History Social History Type Response Smoking Status Never (less than 100 in life time) entered on: 07/09/21 Sex
--- OUTSIDE RECORDS SUMMARY | 2022-07-16 15:26 | XMS_ITS | Continuity of Care Document ---
:1995 Author Organization [facility] Address [address] [place] [address]- Care Team Providers Name Role Phone Priscila DE JESUS, Selam Primary [facility] Phys[id number] Date(s[facility] 11/24[facility]21 - 12/24/21 [facility] [address] [place] [id number] Allergies, Adverse Reactions, Alerts No Known [...] 4 Refills, Maintenance, 09/13/21 13:25:00 EST, Tablet, [facility] #[id number], Partial fill upon patient request if the prescription is for a schedule II opioid drug., 163, cm, 09/13/21 13:11:00 E... Start Date: 09/13/21 Status: Orderedketoconazole 2% topical shampoo 1 application, Topically, Once, PRN as needed, # 120 mL, 0 Refills, Soft Stop, 11/24/21 16:13:00 EDT, Shampoo, [facility] #[id number], Partial fill upon patient request if the prescription is for a schedule II opioid drug., 1 application Topicall... Start Date: 11/24/21 Status: OrderedPrenatal Multivitamins with Folic Acid 1 mg oral capsule See Instructions, TAKE ONE DAILY BY MOUTH, # 100 tablet, 2 Refills, Maintenance, 06/15/21 14:37:00 EST, [facility] #[id number], Partial fill upon patient request if the [...] forms faxed on 04/16/18. 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
--- OUTSIDE RECORDS SUMMARY | 2022-07-16 15:26 | XMS_ITS | Continuity of Care Document ---
:1995 Author [facility] Address [address] [place] [address], [address] [place] [id number]- Care Team Providers Name Role Phone Priscila DE JESUS, Selam Primary Care Physician Encounter [facility] [place] Date(s): 10/20/21 - 10/27/21 [facility] [address] [place] [address], [address] [place] [id number] Attending Physician: Marianela Whyte MD Referring Physician: Tho DE JESUS [OB], [...] 4 Refills, Maintenance, 09/13/21 13:25:00 EST, Tablet, [email or web address] #[id number], Partial fill upon patient request if the prescription is for a schedule II opioid drug., 163, cm, 09/13/21 13:11:00 E... Start Date: 09/13/21 Status: OrderedPrenatal Multivitamins with Folic Acid 1 mg oral capsule See Instructions, TAKE ONE DAILY BY MOUTH, # 100 tablet, 2 Refills, Maintenance, 06/15/21 14:37:00 EST, [email or web address] #[id number], Partial fill upon patient request if the [...] forms faxed on 04/16/18. Provider: Olive Cherys2per liberal arts teacher 2019 note Social History Social History Type Response Smoking Status Never (less than 100 in life time) entered on: 07/09/21 Sex
--- OUTSIDE RECORDS SUMMARY | 2022-07-16 15:26 | XMS_ITS | Continuity of Care Document ---
:1995 Author Organization [facility] Address [address] [place] [address], [address] [place] [address]- Care Team Providers Name Role Phone Olman Wheeler MD Primary Care Physician Encounter [facility] [place] Date(s): 04/19/22 - 05/19/22 [facility] [address] [place] [address], [address] [place] [id number] Allergies, Adverse Reactions, Alerts No [...] Refills, Soft Stop, 04/19/22 11:15:00 EDT, Tablet, [facility] #[id number], Partial fill upon patient request if the prescription is for a schedule II opioid drug., jersey Ferraro, 04/15/22 16:06:00 EDT, H... Start Date: 04/19/22 Status: Ordereddocusate sodium 100 mg oral tablet = 100 mg, By Mouth, 2 times a day, # 60 tablet, 0 Refills, Maintenance, 02/23/22 6:32:00 EDT, Tablet, [facility] #[id number], Partial fill upon patient request if the prescription is for a schedule II opioid drug., 163jersey, 02/23/22 0:05:00 EDT,... Start Date: 02/23/22 Status: Orderedfamotidine 20 mg oral tablet 20 mg, 1, tablet, By Mouth, Daily, # 30 tablet, Refills 0, Tot. Refills 0, Maintenance, 01/12/22 9:47:00 EDT, Route to Pharmacy Electronically, [facility] #[id number], Partial fill upon patient request if the prescription is for a schedule II opi... Start Date: 01/12/22 Stop Date: 02/11/22 Status: Orderedfolic acid 0.8 mg oral tablet 1 tablet = 0.8 mg, By Mouth, Daily, # 100 tablet, 4 Refills, Maintenance, 09/13/21 13:25:00 EST, Tablet, [facility] #[id number], Partial fill upon patient request if the prescription is for a schedule II opioid drug., 163, jersey, 09/13/21 13:11:00 E... Start Date: 09/13/21 Status: Orderedhydrocortisone 2.5% topical ointment 1 application, Topically, 3 times a day, # 28.35 Gm, 0 Refills, Maintenance, 03/02/22 13:36:00 EDT, Ointment, [facility] #[id number], Partial fill upon patient request if the [...] 4 Refills,Soft Stop, 05/04/22 12:43:00 EDT, Shampoo, [facility] #[id number], Partial fill upon patient request if the prescription is for a schedule II opi... Start Date: 05/04/22 Status: OrderedoxyCODONE 5 mg oral tablet 5 mg, 1, tablet, By Mouth, Every 3 hours, PRN, (7-10), # 7 tablet, Refills 0, Tot. Refills 0, Maintenance, Pain , Severe, 02/23/22 6:32:00 EDT, Route to Pharmacy Electronically, [facility] #[id number], Partial fill upon patient request if the pre... Start Date: 02/23/22 Status: OrderedPrenatal Multivitamins with Folic Acid 1 mg oral capsule See Instructions, TAKE ONE DAILY BY MOUTH, # 100 tablet, 2 Refills, Maintenance, 06/15/21 14:37:00 EST, [facility] #[id number], Partial fill upon patient request if the prescription is for a schedule II opioid drug., TAKE ONE DAILY BY MOUTH, 163,... Start Date: 06/15/21 Status: Orderedsertraline 25 mg oral tablet 1 tablet = 25 mg, By Mouth, Daily, 1 tab po qd x 1 week. If doing well, increase to bid, # 90 tablet, 0 Refills, Maintenance, 04/15/22 16:42:00 EDT, Tablet, [facility] #[id number], Partial fill upon patient request if the prescription is for a sc... Start Date: 04/15/22 Status: Orderedsertraline 50 mg oral tablet 1 tablet = 50 mg, By Mouth, Daily, # 90 tablet, 0 Refills, Maintenance, 04/29/22 12:34:00 EDT, Tablet, [facility] #[id number], Partial fill upon patient request if the prescription is for a schedule II opioid drug., 163, cm, 04/15/22 16:06:00 EDT... Start Date: 04/29/22 Status: Orderedsimethicone 80 mg oral tablet, chewable 80 mg, Chew, 3 times a day, PRN, # 36 tablet, Refills 0, Tot. Refills 0, Maintenance, Gas, 02/23/22 6:32:00 EDT, Route to Pharmacy Electronically, [facility] #[id number], Partial fill upon patientrequest if the prescription [...] forms faxed on 04/16/18. 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
--- OUTSIDE RECORDS SUMMARY | 2022-07-16 15:26 | XMS_ITS | Continuity of Care Document ---
:1995 Author Organization [facility] Address [address] [place] [address]- Care Team Providers Name Role Phone Liam DE JESUS, Olman Primary Care Physician Encounter [facility] Date(s): 05/04/22 - 06/03/22 [facility] [address] [place] [id number] Allergies, Adverse Reactions, Alerts No Known [...] Refills, Soft Stop, 06/01/22 15:13:00 EDT, Tablet, [id number], Partial fill upon patient request if the presc... Start Date: 06/01/22 Status: Ordereddocusate sodium 100 mg oral tablet = 100 mg, By Mouth, 2 times a day, # 60 tablet, 0 Refills, Maintenance, 02/23/22 6:32:00 EDT, Tablet, [facility][id number], Partial fill upon patient request if the prescription is for a schedule II opioid drug., 163, cm, 02/23/22 0:05:00 EDT,... Start Date: 02/23/22 Status: Orderedfamotidine 20 mg oral tablet 20 mg, 1, tablet, By Mouth, Daily, # 30 tablet, Refills 0, Tot. Refills 0, Maintenance, 01/12/22 9:47:00 EDT, Route to Pharmacy Electronically, [facility][id number], Partial fill upon patient request if the prescription is for a schedule II opi... Start Date: 01/12/22 Stop Date: 02/11/22 Status: Orderedfolic acid 0.8 mg oral tablet 1 tablet = 0.8 mg, By Mouth, Daily, # 100 tablet, 4 Refills, Maintenance, 09/13/21 13:25:00 EST, Tablet, [facility][id number], Partial fill upon patient request if the prescription is for a schedule II opioid drug., 163, cm, 09/13/21 13:11:00 E... Start Date: 09/13/21 Status: Orderedhydrocortisone 2.5% topical ointment 1 application, Topically, 3 times a day, # 28.35 Gm, 0 Refills, Maintenance, 03/02/22 13:36:00 EDT, Ointment, [facility] #[id number], Partial fill upon patient request if the [...] 4 Refills,Soft Stop, 05/04/22 12:43:00 EDT, Shampoo, [facility] #[id number], Partial fill upon patient request if the prescription is for a schedule II opi... Start Date: 05/04/22 Status: OrderedoxyCODONE 5 mg oral tablet 5 mg, 1, tablet, By Mouth, Every 3 hours, PRN, (7-10), # 7 tablet, Refills 0, Tot. Refills 0, Maintenance, Pain , Severe, 02/23/22 6:32:00 EDT, Route to Pharmacy Electronically, [facility] #[id number], Partial fill upon patient request if the pre... Start Date: 02/23/22 Status: OrderedPrenatal Multivitamins with Folic Acid 1 mg oral capsule See Instructions, TAKE ONE DAILY BY MOUTH, # 100 tablet, 2 Refills, Maintenance, 06/15/21 14:37:00 EST, [facility] #[id number], Partial fill upon patient request if the prescription is for a schedule II opioid drug., TAKE ONE DAILY BY MOUTH, 163,... Start Date: 06/15/21 Status: Orderedsertraline 25 mg oral tablet 1 tablet = 25 mg, By Mouth, Daily, 1 tab po qd x 1 week. If doing well, increase to bid, # 90 tablet, 0 Refills, Maintenance, 04/15/22 16:42:00 EDT, Tablet, [facility][id number], Partial fill upon patient request if the prescription is for a sc... Start Date: 04/15/22 Status: Orderedsertraline 50 mg oral tablet 1 tablet = 50 mg, By Mouth, Daily, # 90 tablet, 0 Refills, Maintenance, 04/29/22 12:34:00 EDT, Tablet, [facility] #[id number], Partial fill upon patient request if the prescription is for a schedule II opioid drug., 163, cm, 04/15/22 16:06:00 EDT... Start Date: 04/29/22 Status: Orderedsimethicone 80 mg oral tablet, chewable 80 mg, Chew, 3 times a day, PRN, # 36 tablet, Refills 0, Tot. Refills 0, Maintenance, Gas, 02/23/22 6:32:00 EDT, Route to Pharmacy Electronically, [facility] #[id number], Partial fill upon patientrequest if the prescription [...] forms faxed on 04/16/18. Provider: Olive Moralesper acid remover 2019 note Social History Social History Type Response Smoking Status Never (less than 100 in life time) entered on: 07/09/21 Sex Patient Care team information PersonnelName: Olman Wheeler MD Address: Address: [address] [place] [address]
--- OUTSIDE RECORDS SUMMARY | 2022-07-16 15:26 | XMS_ITS | Continuity of Care Document ---
:1995 Author Organization [facility] Address [address] [place] [address]- Care Team Providers Name Role Phone Selam Francois MD Primary Care Physician En[place] [facility] Date(s): 03/29/20 - 04/05/20 [facility] [address] [place] [address]- [facility] Attending Physician: Rudolph Wolf Referring Physician: Selam Francois MD Allergies, Adverse [...] Refills, Soft Stop, 10/04/19 16:29:00 EST, Shampoo, [facility] #[id number], 1 application Topically once-twice a week, for four weeks, 163, cm, 09/18/19 15:31:00 EST,... Start Date: 10/04/19 Status: Orderednaproxen 500 mg oral tablet 1 tablet = 500 mg, By Mouth, 2 times a day, for 10 days, # 20 tablet, 0 Refills, Acute 04/08/20 9:25:00 EDT, 03/29/20 9:25:00 EDT, Tablet, [id number], 163, cm, 03/29/20 9:09:00 EDT, Height Start Date: 03/29/20 Stop Date: 04/08/20 Status: Orderedpenicillin V potassium 500 mg oral tablet 1 tablet = 500 mg, By Mouth, Every 8 hours, for 10 days, # 30 tablet, 0 Refills, Acute 04/08/20 9:25:00 EDT, 03/29/20 9:25:00 EDT, [id number], 163, cm, 03/29/20 9:09:00 EDT, Height Start Date: 03/29/20 Stop Date: 04/08/20 Status: Ordered Problem List Condition Effective Dates Status Health Status Informant Right ovarian cyst(Confirmed) Active Generalized anxiety Active disorder(Confirmed)1 History of panic attacks(Confirmed) Active Severe obesity(Confirmed) Active Cannabis abuse, mild(Confirmed)2 Active Dermatitis, seborrheic(Confirmed) Active 1As per [facility] forms faxed on 04/16/18. Provider: Olive York per [facility] forms faxed on 04/16/18. Provider: Olive Kumari Vital Signs Most recent to oldest [Reference Range]: 1 Height 163 cm (03/29/20 9:09 AM) Oxygen Saturation [94-100 %] 100 % (03/29/20 9:09 AM) Pulse Rate [55-90 bpm] 68 bpm (03/29/20 9:09 AM) Blood Pressure [90-138/55-84 mm Hg] 136/84 mm Hg (03/29/20 9:09 AM) Respiratory Rate [16-30 br/min] 16 br/min (03/29/20 9:09 AM) Temperature [96.8-100.4 DegF] 98.5 DegF (03/29/20 9:09 AM) Mode of Delivery (Oxygen) Room air (03/29/20 9:09 AM) Blood pressure sites Arm, left (03/29/20 9:09 AM) Temperature Route Temporal (03/29/20 9:09 AM) Social History Social History Type Response Smoking Status Never smoker; Tobacco user i n household: No entered on: 02/26/15 Sex
--- OUTSIDE RECORDS SUMMARY | 2022-07-16 15:26 | XMS_ITS | Continuity of Care Document ---
:1995 Author Organization [facility] Address [address] [place] [address], [address] [place] [id number]- Care Team Providers Name Role Phone Priscila DE JESUS, Selam Primary Care Physician Encounter [facility] Date(s): 10/04/21 - 10/11/21 [facility] [address], [address] [place] [id number] Attending Physician: Eva Donahue MD Referring [...] 4 Refills, Maintenance, 09/13/21 13:25:00 EST, Tablet, [facility] #[id number], Partial fill upon patient request if the prescription is for a schedule II opioid drug., 163, cm, 09/13/21 13:11:00 E... Start Date: 09/13/21 Status: OrderedPrenatal Multivitamins with Folic Acid 1 mg oral capsule See Instructions, TAKE ONE DAILY BY MOUTH, # 100 tablet, 2 Refills, Maintenance, 06/15/21 14:37:00 EST, [facility] #[id number], Partial fill upon patient request if the [...] forms faxed on 04/16/18. Provider: Olive Cherys2per slicing machine operator/tender 2019 note Vital Signs Most recent to oldest [Reference Range]: 1 Height 163 cm (10/04/21 2:04 PM) Weight 95.00 kg (10/04/21 2:04 PM) Body Mass Index [18.5-24.99] 35.76 *>HHI* (10/04/21 2:04 PM) Blood Pressure [90-138/55-84 mm Hg] 124/60 mm Hg (10/04/21 2:04 PM) Blood pressure sites Arm, right (10/04/21 2:04 PM) Weight Obtained Via Standing scale (10/04/21 2:04 PM) Social History Social History Type Response Smoking Status Never (less than 100 in life time) entered on: 07/09/21 Sex
--- OUTSIDE RECORDS SUMMARY | 2022-07-16 15:26 | XMS_ITS | Continuity of Care Document ---
:1995 Author Organization [facility] Address [address] [place] [address], [address] [place] [id number]- Care Team Providers Name Role Phone Liam DE JESUS, Olman Primary Care Physician En[place] [facility] Date(s): 03/03/22 - 04/02/22 [facility] [address], [address] [place] [id number] Allergies, Adverse Reactions, Alerts No Known [...] 0 Refills, Maintenance, 02/23/22 6:32:00 EDT, Tablet, [facility] #[id number], Partial fill upon patient request if the prescription is for a schedule II opioid drug., [place], 02/23/22 0:05:00 EDT,... Start Date: 02/23/22 Status: Orderedfolic acid 0.8 mg oral tablet 1 tablet = 0.8 mg, By Mouth, Daily, # 100 tablet, 4 Refills, Maintenance, 09/13/21 13:25:00 EST, Tablet, [facility] #[id number], Partial fill upon patient request if the prescription is for a schedule II opioid drug., 163, jersey, 09/13/21 13:11:00 E... Start Date: 09/13/21 Status: Orderedhydrocortisone 2.5% topical ointment 1 application, Topically, 3 times a day, # 28.35 Gm, 0 Refills, Maintenance, 03/02/22 13:36:00 EDT, [facility][id number], Partial fill upon patient request if the [...] 0 Refills, Soft Stop, 11/24/21 16:13:00 EDT, [facility][id number], Partial fill upon patient request if the prescription is for a schedule II opioid drug., 1 application Topicall... Start Date: 11/24/21 Status: OrderedoxyCODONE 5 mg oral tablet 5 mg, 1, tablet, By Mouth, Every 3 hours, PRN, (7-10), # 7 tablet, Refills 0, Tot. Refills 0, Maintenance, Pain , Severe, 02/23/22 6:32:00 EDT, Route to Pharmacy Electronically, [facility] #[id number], Partial fill upon patient request if the pre... Start Date: 02/23/22 Status: OrderedPrenatal Multivitamins with Folic Acid 1 mg oral capsule See Instructions, TAKE ONE DAILY BY MOUTH, # 100 tablet, 2 Refills, Maintenance, 06/15/21 14:37:00 EST, [facility] #[id number], Partial fill upon patient request if the prescription is for a schedule II opioid drug., TAKE ONE DAILY BY MOUTH, 163,... Start Date: 06/15/21 Status: Orderedsimethicone 80 mg oral tablet, chewable 80 mg, Chew, 3 times a day, PRN, # 36 tablet, Refills 0, Tot. Refills 0, Maintenance, Gas, 02/23/22 6:32:00 EDT, Route to Pharmacy Electronically, [facility] #[id number], Partial fill upon patientrequest if the prescription [...] forms faxed on 04/16/18. Provider: Olive Crawford assisted living manager 2019 note Social History Social History Type Response Smoking Status Never (less than 100 in life time) entered on: 07/09/21 Sex Care Team PersonnelName: Olman Wheeler MD Address: [address] [place] [address]
--- OUTSIDE RECORDS SUMMARY | 2022-07-16 15:26 | XMS_ITS | Continuity of Care Document ---
:1995 Author Organization [facility] Address [address] [place] [address]- Care Team Providers Name Role Phone Priscila DE JESUS, Selam Primary Care Physician En[place] [facility] Date(s): 05/10/21 - 06/09/21 [facility] [address] [place], [place] [address] Attending Physician: AdmXiang lacy Admitting Physician: AdmtrXiang Referring Physician: Admtr, Ar8 Allergies, Adverse Reactions, Alerts Substance Reaction [...] Refills, Soft Stop, 06/03/21 8:40:00 EDT, Shampoo, [facility] #[id number], 1 application Topically once-twice a week, for four weeks, 163, cm, 05/10/21 14:44... Start Date: 06/03/21 Status: Orderedsertraline 50 mg oral tablet 1 tablet = 50 mg, By Mouth, Daily, # 30 tablet, 2 Refills, Maintenance, 03/11/21 9:14:00 EDT, Tablet, [facility] #[id number], Partial fill upon patient request if the [...] forms faxed on 04/16/18. Provider: Olive Moralesper sous chef 2019 note3 As per [facility] forms faxed on 04/16/18. Provider: Olive Kumari Social History Social History Type Response Smoking Status Never smoker; Tobacco user i n household: No entered on: 02/26/15 Sex
--- OUTSIDE RECORDS SUMMARY | 2022-07-16 15:26 | XMS_ITS | Continuity of Care Document ---
:1995 Author Organization [facility] Address [address] [place] [address], [address] [place] [id number]- Care Team Providers Name Role Phone Priscila DE JESUS, Selam Primary Care Physician [place] [facility]17[place] - 01/16/22 [facility] [address] [place] [address], [address] [place] [id number] Allergies, Adverse Reactions, Alerts No [...] 4 Refills, Maintenance, 09/13/21 13:25:00 EST, Tablet, [facility] #[id number], Partial fill upon patient request if the prescription is for a schedule II opioid drug., 163, cm, 09/13/21 13:11:00 E... Start Date: 09/13/21 Status: Orderedketoconazole 2% topical shampoo 1 application, Topically, Once, PRN as needed, # 120 mL, 0 Refills, Soft Stop, 11/24/21 16:13:00 EDT, Shampoo, [facility] #[id number], Partial fill upon patient request if the prescription is for a schedule II opioid drug., 1 application Topicall... Start Date: 11/24/21 Status: OrderedPrenatal Multivitamins with Folic Acid 1 mg oral capsule See Instructions, TAKE ONE DAILY BY MOUTH, # 100 tablet, 2 Refills, Maintenance, 06/15/21 14:37:00 EST, [facility] #[id number], Partial fill upon patient request if the [...] forms faxed on 04/16/18. Provider: Olive Cherys2per color receiver 2019 note Social History Social History Type Response Smoking Status Never (less than 100 in life time) entered on: 07/09/21 Sex
--- OUTSIDE RECORDS SUMMARY | 2022-07-16 15:26 | XMS_ITS | Continuity of Care Document ---
:1995 Author Organization [facility] Address [address] [place] [address], [address] [place] [address]- Care Team Providers Name Role Phone Priscila DE JESUS, Selam Primary Care Physician Encounter [facility] Date(s): 01/07/22 - 02/06/22 [facility] [address] [place] [address], [address] [place] [id number] Allergies, Adverse Reactions, Alerts No Known [...] 4 Refills, Maintenance, 09/13/21 13:25:00 EST, Tablet, [facility] #[id number], Partial fill upon patient request if the prescription is for a schedule II opioid drug., 163, cm, 09/13/21 13:11:00 E... Start Date: 09/13/21 Status: Orderedketoconazole 2% topical shampoo 1 application, Topically, Once, PRN as needed, # 120 mL, 0 Refills, Soft Stop, 11/24/21 16:13:00 EDT, Shampoo, [facility] #[id number], Partial fill upon patient request if the prescription is for a schedule II opioid drug., 1 application Topicall... Start Date: 11/24/21 Status: OrderedPrenatal Multivitamins with Folic Acid 1 mg oral capsule See Instructions, TAKE ONE DAILY BY MOUTH, # 100 tablet, 2 Refills, Maintenance, 06/15/21 14:37:00 EST, [facility] #[id number], Partial fill upon patient request if the [...] forms faxed on 04/16/18. Provider: Olive Cherys2per international logistics coordinator 2019 note Social History Social History Type Response Smoking Status Never (less than 100 in life time) entered on: 07/09/21 Sex
--- OUTSIDE RECORDS SUMMARY | 2022-07-16 15:26 | XMS_ITS | Continuity of Care Document ---
:1995 Author Organization [facility] Address [address] [place] [address], [address] [place] [id number]- Care Team Providers Name Role Phone Liam DE JESUS, Olman Primary Care Physician [place] [facility] [place]s): 03/14/22 - 04/13/22 [facility] [address] [place] [address], [address] [place] [id number] Allergies, Adverse Reactions, Alerts No Known Allergies [...] 0 Refills, Maintenance, 02/23/22 6:32:00 EDT, Tablet, [facility] #[id number], Partial fill upon patient request if the prescription is for a schedule II opioid drug., 163, jersey, 02/23/22 0:05:00 EDT,... Start Date: 02/23/22 Status: Orderedfamotidine 20 mg oral tablet 20 mg, 1, tablet, By Mouth, Daily, # 30 tablet, Refills 0, Tot. Refills 0, Maintenance, 01/12/22 9:47:00 EDT, Route to Pharmacy Electronically, [facility] #[id number], Partial fill upon patient request if the prescription is for a schedule II opi... Start Date: 01/12/22 Stop Date: 02/11/22 Status: Orderedfolic acid 0.8 mg oral tablet 1 tablet = 0.8 mg, By Mouth, Daily, # 100 tablet, 4 Refills, Maintenance, 09/13/21 13:25:00 EST, Tablet, [facility] #[id number], Partial fill upon patient request if the prescription is for a schedule II opioid drug., 163, jersey, 09/13/21 13:11:00 E... Start Date: 09/13/21 Status: Orderedhydrocortisone 2.5% topical ointment 1 application, Topically, 3 times a day, # 28.35 Gm, 0 Refills, Maintenance, 03/02/22 13:36:00 EDT, Ointment, [facility] #[id number], Partial fill upon patient request if the [...] Refills, Soft Stop, 11/24/21 16:13:00 EDT, Shampoo, [facility] #[id number], Partial fill upon patient request if the prescription is for a schedule II opioid drug., 1 application Topicall... Start Date: 11/24/21 Status: OrderedoxyCODONE 5 mg oral tablet 5 mg, 1, tablet, By Mouth, Every 3 hours, PRN, (7-10), # 7 tablet, Refills 0, Tot. Refills 0, Maintenance, Pain , Severe, 02/23/22 6:32:00 EDT, Route to Pharmacy Electronically, [facility] #[id number], Partial fill upon patient request if the pre... Start Date: 02/23/22 Status: OrderedPrenatal Multivitamins with Folic Acid 1 mg oral capsule See Instructions, TAKE ONE DAILY BY MOUTH, # 100 tablet, 2 Refills, Maintenance, 06/15/21 14:37:00 EST, [facility] #[id number], Partial fill upon patient request if the prescription is for a schedule II opioid drug., TAKE ONE DAILY BY MOUTH, 163,... Start Date: 06/15/21 Status: Orderedsimethicone 80 mg oral tablet, chewable 80 mg, Chew, 3 times a day, PRN, # 36 tablet, Refills 0, Tot. Refills 0, Maintenance, Gas, 02/23/22 6:32:00 EDT, Route to Pharmacy Electronically, [facility] #[id number], Partial fill upon patientrequest if the prescription [...] forms faxed on 04/16/18. Provider: Olive Cherys2per ob/gyn 2019 note Social History Social History Type Response Smoking Status Never (less than 100 in life time) entered on: 07/09/21 Sex Care Team PersonnelName: Olman Wheeler MD Address: [address] [place] [address] Adult [place], [place] [address]
--- OUTSIDE RECORDS SUMMARY | 2022-07-16 15:26 | XMS_ITS | Continuity of Care Document ---
:1995 Author Organization [facility] Address [address] [place] [address]- Care Team Providers Name Role Phone Priscila DE JESUS, Selam Primary Care Physician [place] [facility] [place] 11/11/20 - 12/11/20 [facility] [address] [place], [place] [address] Allergies, Adverse Reactions, Alerts Substance [...] # 240 mL, 2 Refills, Soft Stop, 11/11/20 14:42:00 EDT, Shampoo, [facility] #[id number], 1 application Topically once-twice a week, for four weeks, 163, cm, 03/29/20 9:09... Start Date: 11/11/20 Status: Ordered Problem List Condition Effective Dates [...]
--- OUTSIDE RECORDS SUMMARY | 2022-07-16 15:27 | XMS_ITS | Continuity of Care Document ---
:1995 Author Organization [facility] Address [address] [place] [address], [address] [place] [address]- Care Team Providers Name Role Phone Liam DE JESUS, Olman Primary Care Physician En[place] [facility] [place] Date(s): 05/30/22 - 06/29/22 [facility] [address] [place] [address], [address] [place] [id number] Allergies, Adverse Reactions, Alerts No Known [...] Refills, Soft Stop, 06/01/22 15:13:00 EDT, Tablet, [facility] #[id number], Partial fill upon patient request if the presc... Start Date: 06/01/22 Status: Ordereddocusate sodium 100 mg oral tablet = 100 mg, By Mouth, 2 times a day, # 60 tablet, 0 Refills, Maintenance, 02/23/22 6:32:00 EDT, Tablet, [facility] #[id number], Partial fill upon patient request if the prescription is for a schedule II opioid drug., 163, cm, 02/23/22 0:05:00 EDT,... Start Date: 02/23/22 Status: Orderedfamotidine 20 mg oral tablet 20 mg, 1, tablet, By Mouth, Daily, # 30 tablet, Refills 0, Tot. Refills 0, Maintenance, 01/12/22 9:47:00 EDT, Route to Pharmacy Electronically, [facility] #[id number], Partial fill upon patient request if the prescription is for a schedule II opi... Start Date: 01/12/22 Stop Date: 02/11/22 Status: Orderedfolic acid 0.8 mg oral tablet 1 tablet = 0.8 mg, By Mouth, Daily, # 100 tablet, 4 Refills, Maintenance, 09/13/21 13:25:00 EST, Tablet, [facility] #[id number], Partial fill upon patient request if the prescription is for a schedule II opioid drug., 163, cm, 09/13/21 13:11:00 E... Start Date: 09/13/21 Status: Orderedhydrocortisone 2.5% topical ointment 1 application, Topically, 3 times a day, # 28.35 Gm, 0 Refills, Maintenance, 03/02/22 13:36:00 EDT, Ointment, [facility] #[id number], Partial fill upon patient request if the [...] 4 Refills,Soft Stop, 06/23/22 16:31:00 EST, Shampoo, [facility] #[id number], Partial fill upon patient request if the prescription is for a schedule II opi... Start Date: 06/23/22 Status: OrderedoxyCODONE 5 mg oral tablet 5 mg, 1, tablet, By Mouth, Every 3 hours, PRN, (7-10), # 7 tablet, Refills 0, Tot. Refills 0, Maintenance, Pain , Severe, 02/23/22 6:32:00 EDT, Route to Pharmacy Electronically, [facility] #[id number], Partial fill upon patient request if the pre... Start Date: 02/23/22 Status: OrderedPrenatal Multivitamins with Folic Acid 1 mg oral capsule See Instructions, TAKE ONE DAILY BY MOUTH, # 100 tablet, 2 Refills, Maintenance, 06/15/21 14:37:[id number], Partial fill upon patient request if the prescription is for a schedule II opioid drug., TAKE ONE DAILY BY MOUTH, 163,... Start Date: 06/15/21 Status: Orderedsertraline 25 mg oral tablet 1 tablet = 25 mg, By Mouth, Daily, 1 tab po qd x 1 week. If doing well, increase to bid, # 90 tablet, 0 Refills, Maintenance, 04/15/22 16:42:00 EDT, Tablet, [facility] #[id number], Partial fill upon patient request if the prescription is for a sc... Start Date: 04/15/22 Status: Orderedsertraline 50 mg oral tablet 1 tablet = 50 mg, By Mouth, Daily, # 90 tablet, 0 Refills, Maintenance, 04/29/22 12:34:00 EDT, [facility][id number], Partial fill upon patient request if the prescription is for a schedule II opioid drug., 163, cm, 04/15/22 16:06:00 EDT... Start Date: 04/29/22 Status: Orderedsimethicone 80 mg oral tablet, chewable 80 mg, Chew, 3 times a day, PRN, # 36 tablet, Refills 0, Tot. Refills 0, Maintenance, Gas, 02/23/22 6:32:00 EDT, Route to Pharmacy Electronically, [facility] #[id number], Partial fill upon patientrequest if the prescription [...] forms faxed on 04/16/18. Provider: Olive Cherys2per parts counterperson 2019 note Social History Social History Type Response Smoking Status Never (less than 100 in life time) entered on: 07/09/21 Sex Patient Care team information Care Team PersonnelName: Olman Wheeler MD Position: S Resident Member Role: PCP Address: Address: [address] [place] [address] [place] [address]- Care Team Related PersonsName: ALEJANDRA THOMPSON Address: [address] [address] Name: RICHY THOMPSON Address: [id number] Address: home [address] [place] [id number] [place] Name: DAVID HARRY Name: GARY ORTIZ Address: [place] [address]
--- OUTSIDE RECORDS SUMMARY | 2022-07-16 15:27 | XMS_ITS | Continuity of Care Document ---
:1995 Author Organization [facility] [address] [place] [address]- Care Team Providers Name Role Phone Olman Wheeler MD Primary Care Physician Encounter [facility] Date(s): 05/12/22 - 06/11/[address] [place], [place] [address] Attending Physician: AdmtrXiang Admitting Physician: Admtr, Ar8 Referring Physician: Admtr, Ar8 Allergies, Adverse Reactions, [...] Refills, Soft Stop, 06/01/22 15:13:00 EDT, Tablet, [facility] #[id number], Partial fill upon patient request if the presc... Start Date: 06/01/22 Status: Ordereddocusate sodium 100 mg oral tablet = 100 mg, By Mouth, 2 times a day, # 60 tablet, 0 Refills, Maintenance, 02/23/22 6:32:00 EDT, Tablet, [facility] #[id number], Partial fill upon patient request if the prescription is for a schedule II opioid drug., 163, cm, 02/23/22 0:05:00 EDT,... Start Date: 02/23/22 Status: Orderedfamotidine 20 mg oral tablet 20 mg, 1, tablet, By Mouth, Daily, # 30 tablet, Refills 0, Tot. Refills 0, Maintenance, 01/12/22 9:47:00 EDT, Route to Pharmacy Electronically, [facility] #[id number], Partial fill upon patient request if the prescription is for a schedule II opi... Start Date: 01/12/22 Stop Date: 02/11/22 Status: Orderedfolic acid 0.8 mg oral tablet 1 tablet = 0.8 mg, By Mouth, Daily, # 100 tablet, 4 Refills, Maintenance, 09/13/21 13:25:00 EST, Tablet, [facility] #[id number], Partial fill upon patient request if the prescription is for a schedule II opioid drug., 163, cm, 09/13/21 13:11:00 E... Start Date: 09/13/21 Status: Orderedhydrocortisone 2.5% topical ointment 1 application, Topically, 3 times a day, # 28.35 Gm, 0 Refills, Maintenance, 03/02/22 13:36:00 EDT, Ointment, [facility] #[id number], Partial fill upon patient request if the [...] 4 Refills,Soft Stop, 05/04/22 12:43:00 EDT, Shampoo, [facility] #[id number], Partial fill upon patient request if the prescription is for a schedule II opi... Start Date: 05/04/22 Status: OrderedoxyCODONE 5 mg oral tablet 5 mg, 1, tablet, By Mouth, Every 3 hours, PRN, (7-10), # 7 tablet, Refills 0, Tot. Refills 0, Maintenance, Pain , Severe, 02/23/22 6:32:00 EDT, Route to Pharmacy Electronically, [facility] #[id number], Partial fill upon patient request if the pre... Start Date: 02/23/22 Status: OrderedPrenatal Multivitamins with Folic Acid 1 mg oral capsule See Instructions, TAKE ONE DAILY BY MOUTH, # 100 tablet, 2 Refills, Maintenance, 06/15/21 14:37:00 EST, [facility] #[id number], Partial fill upon patient request if the prescription is for a schedule II opioid drug., TAKE ONE DAILY BY MOUTH, 163,... Start Date: 06/15/21 Status: Orderedsertraline 25 mg oral tablet 1 tablet = 25 mg, By Mouth, Daily, 1 tab po qd x 1 week. If doing well, increase to bid, # 90 tablet, 0 Refills, Maintenance, 04/15/22 16:42:00 EDT, Tablet, [facility] #[id number], Partial fill upon patient request if the prescription is for a sc... Start Date: 04/15/22 Status: Orderedsertraline 50 mg oral tablet 1 tablet = 50 mg, By Mouth, Daily, # 90 tablet, 0 Refills, Maintenance, 04/29/22 12:34:00 EDT, Tablet, [facility] #[id number], Partial fill upon patient request if the prescription is for a schedule II opioid drug., 163, cm, 04/15/22 16:06:00 EDT... Start Date: 04/29/22 Status: Orderedsimethicone 80 mg oral tablet, chewable 80 mg, Chew, 3 times a day, PRN, # 36 tablet, Refills 0, Tot. Refills 0, Maintenance, Gas, 02/23/22 6:32:00 EDT, Route to Pharmacy Electronically, [facility] #[id number], Partial fill upon patientrequest if the prescription [...] forms faxed on 04/16/18. Provider: Olive Cherys2per slate cutter operator 2019 note Social History Social History Type Response Smoking Status Never (less than 100 in life time) entered on: 07/09/21 Sex Patient Care team information PersonnelName: Olman Wheeler MD Address: Address: [address] [place] [address]
--- OUTSIDE RECORDS SUMMARY | 2022-07-16 15:27 | XMS_ITS | Continuity of Care Document ---
:1995 Author Organization [facility] Address [address] [place] [address], [address] [place] [address]- Care Team Providers Name Role Phone Liam DE JESUS, Olman Primary Care Physician [place] [facility] [place] [facility] [address], [address] [place] [id number] Allergies, Adverse Reactions, [...] 0 Refills, Maintenance, 02/23/22 6:32:00 EDT, Tablet, [facility] #[id number], Partial fill upon patient request if the prescription is for a schedule II opioid drug., 163[place], 02/23/22 0:05:00 EDT,... Start Date: 02/23/22 Status: Orderedfolic acid 0.8 mg oral tablet 1 tablet = 0.8 mg, By Mouth, Daily, # 100 tablet, 4 Refills, Maintenance, 09/13/21 13:25:00 EST, Tablet, [facility] #[id number], Partial fill upon patient request if the prescription is for a schedule II opioid drug., 163, jersey, 09/13/21 13:11:00 E... Start Date: 09/13/21 Status: Orderedhydrocortisone 2.5% topical ointment 1 application, Topically, 3 times a day, # 28.35 Gm, 0 Refills, Maintenance, 03/02/22 13:36:00 EDT, [facility][id number], Partial fill upon patient request if the [...] 0 Refills, Soft Stop, 11/24/21 16:13:00 EDT, [facility] #[id number], Partial fill upon patient request if the prescription is for a schedule II opioid drug., 1 application Topicall... Start Date: 11/24/21 Status: OrderedoxyCODONE 5 mg oral tablet 5 mg, 1, tablet, By Mouth, Every 3 hours, PRN, (7-10), # 7 tablet, Refills 0, Tot. Refills 0, Maintenance, Pain , Severe, 02/23/22 6:32:00 EDT, Route to Pharmacy Electronically, [facility] #[id number], Partial fill upon patient request if the pre... Start Date: 02/23/22 Status: OrderedPrenatal Multivitamins with Folic Acid 1 mg oral capsule See Instructions, TAKE ONE DAILY BY MOUTH, # 100 tablet, 2 Refills, Maintenance, 06/15/21 14:37:00 EST, [facility] #[id number], Partial fill upon patient request if the prescription is for a schedule II opioid drug., TAKE ONE DAILY BY MOUTH, 163,... Start Date: 06/15/21 Status: Orderedsimethicone 80 mg oral tablet, chewable 80 mg, Chew, 3 times a day, PRN, # 36 tablet, Refills 0, Tot. Refills 0, Maintenance, Gas, 02/23/22 6:32:00 EDT, Route to Pharmacy Electronically, [facility] #[id number], Partial fill upon patientrequest if the prescription [...] forms faxed on 04/16/18. Provider: Olive Crawford manager of construction 2019 note Social History Social History Type Response Smoking Status Never (less than 100 in life time) entered on: 07/09/21 Sex Care Team PersonnelName: Olman Wheeler MD Address: [address] [place] [address]
--- OUTSIDE RECORDS SUMMARY | 2022-07-16 15:27 | XMS_ITS | Continuity of Care Document ---
:1995 Author Organization [facility] Address [address] [place] [address], [address] [place] [address]- Care Team Providers Name Role Phone Priscila DE JESUS, Selam Primary Care Physician [place] [facility] [place] - 01/16/22 [facility] [address] [place] [address], [address] [place] [id number] Allergies, Adverse Reactions, Alerts No [...] 4 Refills, Maintenance, 09/13/21 13:25:00 EST, Tablet, [facility] #[id number], Partial fill upon patient request if the prescription is for a schedule II opioid drug., 163, cm, 09/13/21 13:11:00 E... Start Date: 09/13/21 Status: Orderedketoconazole 2% topical shampoo 1 application, Topically, Once, PRN as needed, # 120 mL, 0 Refills, Soft Stop, 11/24/21 16:13:00 EDT, Shampoo, [facility] #[id number], Partial fill upon patient request if the prescription is for a schedule II opioid drug., 1 application Topicall... Start Date: 11/24/21 Status: OrderedPrenatal Multivitamins with Folic Acid 1 mg oral capsule See Instructions, TAKE ONE DAILY BY MOUTH, # 100 tablet, 2 Refills, Maintenance, 06/15/21 14:37:00 EST, [facility] #[id number], Partial fill upon patient request if the [...] forms faxed on 04/16/18. Provider: Olive Cherys2per advance scout 2019 note Social History Social History Type Response Smoking Status Never (less than 100 in life time) entered on: 07/09/21 Sex
--- OUTSIDE RECORDS SUMMARY | 2022-07-16 15:27 | XMS_ITS | Continuity of Care Document ---
:1995 Author Organization [facility] Address [address] [place] [address]- Care Team Providers Name Role Phone Priscila DE JESUS, Selam Primary Care Physician Encounter [facility] [place] Date(s): 08/04/21 - 09/03/[address] [id number] Allergies, Adverse Reactions, Alerts No Known Allergies Immunizations Given and Recorded Vaccine Date Status Refusal Reason SARS-CoV-2 (COVID-19) mRNA-1273 vaccine 03/04/21 Recorded SARS-CoV-2 (COVID-19) mRNA-1272 vaccine 01/05/21 Recorded influenza virus vaccine, inactivated 07/19/17 Given influenza virus vaccine, inactivated 04/15/16 Recorded Human Papillomavirus Vaccine 02/21/17 Given Human Papillomavirus Vaccine 10/14/16 Given tetanus/diphtheria/pertussis, acel(Tdap) 11/10/16 Given Medications FLUoxetine 10 mg oral tablet 1 tablet = 10 mg, By Mouth, Daily, # 60 tablet, 0 Refills, Maintenance, 06/15/21 15:03:00 EST, Tablet, [facility] #[id number], Partial fill upon patient request if the prescription is for a schedule II opioid drug., 163, cm, 06/15/21 14:24:00 EST... Start Date: 06/15/21 Status: Orderedketoconazole 2% topical shampoo See Instructions, 1 application Topically once-twice a week, for four weeks, # 240 mL, 1 Refills, Soft Stop, 06/03/21 8:40:00 EDT, Shampoo, [facility] #[id number], 1 application Topically once-twice a week, for four weeks, 163, cm, 05/10/21 14:44... Start Date: 06/03/21 Status: OrderedPrenatal Multivitamins with Folic Acid 1 mg oral capsule See Instructions, TAKE ONE DAILY BY MOUTH, # 100 tablet, 2 Refills, Maintenance, 06/15/21 14:37:00 EST, [facility] #[id number], Partial fill upon patient request if the prescription is for a schedule II opioid drug., TAKE ONE DAILY BY MOUTH, 163,... Start Date: 06/15/21 Status: OrderedUnisom 25 mg oral tablet 1 tablet = 25 mg, By Mouth, Daily at bedtime, PRN for sleep, # 30 tablet, 0 Refills, Maintenance, 07/05/21 11:55:00 EST, Tablet, [facility] #[id number], Partial fill upon patient request if the prescription is for a schedule II opioid drug., 163,... Start Date: 07/05/21 Status: OrderedVitamin B6 25 mg oral tablet 1 tablet = 25 mg, By Mouth, 3 times a day, # 90 tablet, 0 Refills, Maintenance, 07/05/21 11:55:00 EST, [facility] #[id number], Partial fill upon patient request if the [...] forms faxed on 04/16/18. Provider: Olive Moralesper billet cutter 2019 note3 As per [facility] forms faxed on 04/16/18. Provider: Olive Kumari Social History Social History Type Response Smoking Status Never (less than 100 in life time) entered on: 07/09/21 Sex
--- OUTSIDE RECORDS SUMMARY | 2022-07-16 15:27 | XMS_ITS | Continuity of Care Document ---
:1995 Author Organization [facility] Address [address] [place] [address], [address] [place] [address]- Care Team Providers Name Role Phone Liam DE JESUS, Olman Primary Care Physician Encounter [facility] [place] Date(s): 03/02/22 - 04/01/22 [facility] [address] [place] [address], [address] [place] [id number] Allergies, Adverse Reactions, Alerts No Known Allergies [...] 0 Refills, Maintenance, 02/23/22 6:32:00 EDT, Tablet, [facility] #[id number], Partial fill upon patient request if the prescription is for a schedule II opioid drug., 163jer[place], 02/23/22 0:05:00 EDT,... Start Date: 02/23/22 Status: Orderedfolic acid 0.8 mg oral tablet 1 tablet = 0.8 mg, By Mouth, Daily, # 100 tablet, 4 Refills, Maintenance, 09/13/21 13:25:00 EST, Tablet, [facility] #[id number], Partial fill upon patient request if the prescription is for a schedule II opioid drug., 163, jersey, 09/13/21 13:11:00 E... Start Date: 09/13/21 Status: Orderedhydrocortisone 2.5% topical ointment 1 application, Topically, 3 times a day, # 28.35 Gm, 0 Refills, Maintenance, 03/02/22 13:36:00 EDT, [facility][id number], Partial fill upon patient request if the [...] 0 Refills, Soft Stop, 11/24/21 16:13:00 EDT, [facility] #[id number], Partial fill upon patient request if the prescription is for a schedule II opioid drug., 1 application Topicall... Start Date: 11/24/21 Status: OrderedoxyCODONE 5 mg oral tablet 5 mg, 1, tablet, By Mouth, Every 3 hours, PRN, (7-10), # 7 tablet, Refills 0, Tot. Refills 0, Maintenance, Pain , Severe, 02/23/22 6:32:00 EDT, Route to Pharmacy Electronically, [facility] #[id number], Partial fill upon patient request if the pre... Start Date: 02/23/22 Status: OrderedPrenatal Multivitamins with Folic Acid 1 mg oral capsule See Instructions, TAKE ONE DAILY BY MOUTH, # 100 tablet, 2 Refills, Maintenance, 06/15/21 14:37:00 EST, [facility] #[id number], Partial fill upon patient request if the prescription is for a schedule II opioid drug., TAKE ONE DAILY BY MOUTH, 163,... Start Date: 06/15/21 Status: Orderedsimethicone 80 mg oral tablet, chewable 80 mg, Chew, 3 times a day, PRN, # 36 tablet, Refills 0, Tot. Refills 0, Maintenance, Gas, 02/23/22 6:32:00 EDT, Route to Pharmacy Electronically, [facility] #[id number], Partial fill upon patientrequest if the prescription [...] forms faxed on 04/16/18. Provider: Olive Crawford weight loss consultant 2019 note Social History Social History Type Response Smoking Status Never (less than 100 in life time) entered on: 07/09/21 Sex Care Team PersonnelName: Olman Wheeler MD Address: [address] [place] [address]
--- OUTSIDE RECORDS SUMMARY | 2022-07-16 15:27 | XMS_ITS | Continuity of Care Document ---
:1995 Author Organization [facility] Address [address] [place] [address], [address] [place] [address]- Care Team Providers Name Role Phone Liam DE JESUS, Olman Primary Care Physician Encounter [facility] [place] Date(s): 03/07/22 - 03/14/22 [facility] [address], [address] [place] [id number] Attending Physician: Godfrey DE JESUS, Eva Daniel [...] 0 Refills, Maintenance, 02/23/22 6:32:00 EDT, Tablet, [facility] #[id number], Partial fill upon patient request if the prescription is for a schedule II opioid drug., jersey Ferraro, 02/23/22 0:05:00 EDT,... Start Date: 02/23/22 Status: Orderedfolic acid 0.8 mg oral tablet 1 tablet = 0.8 mg, By Mouth, Daily, # 100 tablet, 4 Refills, Maintenance, 09/13/21 13:25:00 EST, Tablet, [facility] #[id number], Partial fill upon patient request if the prescription is for a schedule II opioid drug., 163jersey, 09/13/21 13:11:00 E... Start Date: 09/13/21 Status: Orderedhydrocortisone 2.5% topical ointment 1 application, Topically, 3 times a day, # 28.35 Gm, 0 Refills, Maintenance, 03/02/22 13:36:00 EDT, [facility] #[id number], Partial fill upon patient request if the [...] 0 Refills, Soft Stop, 11/24/21 16:13:00 EDT, [email or web address] #[id number], Partial fill upon patient request if the prescription is for a schedule II opioid drug., 1 application Topicall... Start Date: 11/24/21 Status: OrderedoxyCODONE 5 mg oral tablet 5 mg, 1, tablet, By Mouth, Every 3 hours, PRN, (7-10), # 7 tablet, Refills 0, Tot. Refills 0, Maintenance, Pain , Severe, 02/23/22 6:32:00 EDT, Route to Pharmacy Electronically, [facility] #[id number], Partial fill upon patient request if the pre... Start Date: 02/23/22 Status: OrderedPrenatal Multivitamins with Folic Acid 1 mg oral capsule See Instructions, TAKE ONE DAILY BY MOUTH, # 100 tablet, 2 Refills, Maintenance, 06/15/21 14:37:00 EST, [facility] #[id number], Partial fill upon patient request if the prescription is for a schedule II opioid drug., TAKE ONE DAILY BY MOUTH, 163,... Start Date: 06/15/21 Status: Orderedsimethicone 80 mg oral tablet, chewable 80 mg, Chew, 3 times a day, PRN, # 36 tablet, Refills 0, Tot. Refills 0, Maintenance, Gas, 02/23/22 6:32:00 EDT, Route to Pharmacy Electronically, [facility] #[id number], Partial fill upon patientrequest if the prescription [...] forms faxed on 04/16/18. Provider: Olive Cherys2per press operator helper 2019 note Social History Social History Type Response Smoking Status Never (less than 100 in life time) entered on: 07/09/21 Sex
--- OUTSIDE RECORDS SUMMARY | 2022-07-16 15:27 | XMS_ITS | Continuity of Care Document ---
:[address] [facility] Address [address] [place] [address]- Care Team Providers Name Role Phone Priscila DE JESUS, Selam Primary Care Physician Encounter [facility] Date(s): 11/04/21 - 12/04/[facility] [address] [place] [email or web address] Attending Physician: AdmXiang lacy Admitting Physician: Admtr, Ar8 Referring Physician: Admtr, [...] 4 Refills, Maintenance, 09/13/21 13:25:00 EST, Tablet, [facility] #[id number], Partial fill upon patient request if the prescription is for a schedule II opioid drug., 163, cm, 09/13/21 13:11:00 E... Start Date: 09/13/21 Status: Orderedketoconazole 2% topical shampoo 1 application, Topically, Once, PRN as needed, # 120 mL, 0 Refills, Soft Stop, 11/24/21 16:13:00 EDT, [facility] #[id number], Partial fill upon patient request if the prescription is for a schedule II opioid drug., 1 application Topicall... Start Date: 11/24/21 Status: OrderedPrenatal Multivitamins with Folic Acid 1 mg oral capsule See Instructions, TAKE ONE DAILY BY MOUTH, # 100 tablet, 2 Refills, Maintenance, 06/15/21 14:37:00 [facility] #[id number], Partial fill upon patient request if the [...] forms faxed on 04/16/18. Provider: Olive Cherys2per history department chair 2019 note Social History Social History Type Response Smoking Status Never (less than 100 in life time) entered on: 07/09/21 Sex
--- OUTSIDE RECORDS SUMMARY | 2022-07-16 15:27 | XMS_ITS | Continuity of Care Document ---
:1995 Author Organization [facility] Address [address] [place] [address], [address] [place] [address]- Care Team Providers Name Role Phone Priscila DE JESUS, Selam Primary Care Physician [place] [facility] [place](s): 12/20/21 - 12/27/21 [facility] [address], [address] [place] [id number] Attending Physician: Godfrey DE JSEUS, Eva Daniel Referring Physician: Tho DE JESUS [OB], Joanna [...] 4 Refills, Maintenance, 09/13/21 13:25:00 EST, Tablet, [facility] #[id number], Partial fill upon patient request if the prescription is for a schedule II opioid drug., 163, cm, 09/13/21 13:11:00 E... Start Date: 09/13/21 Status: Orderedketoconazole 2% topical shampoo 1 application, Topically, Once, PRN as needed, # 120 mL, 0 Refills, Soft Stop, 11/24/21 16:13:00 EDT, Shampoo, [facility] #[id number], Partial fill upon patient request if the prescription is for a schedule II opioid drug., 1 application Topicall... Start Date: 11/24/21 Status: OrderedPrenatal Multivitamins with Folic Acid 1 mg oral capsule See Instructions, TAKE ONE DAILY BY MOUTH, # 100 tablet, 2 Refills, Maintenance, 06/15/21 14:37:00 EST, [facility] #[id number], Partial fill upon patient request if the [...] forms faxed on 04/16/18. Provider: Olive Moralesper spikemaking supervisor 2019 note Vital Signs Most recent to oldest [Reference Range]: 1 Height 163 cm (12/20/21 11:33 AM) Weight 103.93 kg (12/20/21 11:33 AM) Body Mass Index [18.5-24.99] 39.12 *>HHI* (12/20/21 11:33 AM) Blood Pressure [90-138/55-84 mm Hg] 133/78 mm Hg (12/20/21 11:33 AM) Blood pressure sites Arm, right (12/20/21 11:33 AM) Weight Obtained Via Standing scale (12/20/21 11:33 AM) Social History Social History Type Response Smoking Status Never (less than 100 in life time) entered on: 07/09/21 Sex
--- OUTSIDE RECORDS SUMMARY | 2022-07-16 15:27 | XMS_ITS | Continuity of Care Document ---
:1995 Author Organization [facility] Address [address] [place] [address], [address] [place] [address]- Care Team Providers Name Role Phone Olman Wheeler MD Primary Care Physician [place] [facility] [place] 02/24/[address] [facility] [address] [place] [address], [address] [place] [id number] Allergies, Adverse Reactions, Alerts No Known [...] 0 Refills, Maintenance, 02/23/22 6:32:00 EDT, Tablet, [facility] #[id number], Partial fill upon patient request if the prescription is for a schedule II opioid drug., 163[place], 02/23/22 0:05:00 EDT,... Start Date: 02/23/22 Status: Orderedfolic acid 0.8 mg oral tablet 1 tablet = 0.8 mg, By Mouth, Daily, # 100 tablet, 4 Refills, Maintenance, 09/13/21 13:25:00 EST, Tablet, [facility] #[id number], Partial fill upon patient request if the prescription is for a schedule II opioid drug., 163[place], 09/13/21 13:11:00 E... Start Date: 09/13/21 Status: Orderedibuprofen 800 mg oral tablet 800 [...] Refills, Soft Stop, 11/24/21 16:13:00 EDT, Shampoo, [facility] #[id number], Partial fill upon patient request if the prescription is for a schedule II opioid drug., 1 application Topicall... Start Date: 11/24/21 Status: OrderedoxyCODONE 5 mg oral tablet 5 mg, 1, tablet, By Mouth, Every 3 hours, PRN, (7-10), # 7 tablet, Refills 0, Tot. Refills 0, Maintenance, Pain , Severe, 02/23/22 6:32:00 EDT, Route to Pharmacy Electronically, [facility] #[id number], Partial fill upon patient request if the pre... Start Date: 02/23/22 Status: OrderedPrenatal Multivitamins with Folic Acid 1 mg oral capsule See Instructions, TAKE ONE DAILY BY MOUTH, # 100 tablet, 2 Refills, Maintenance, 06/15/21 14:37:00 EST, [facility] #[id number], Partial fill upon patient request if the prescription is for a schedule II opioid drug., TAKE ONE DAILY BY MOUTH, 163,... Start Date: 06/15/21 Status: Orderedsimethicone 80 mg oral tablet, chewable 80 mg, Chew, 3 times a day, PRN, # 36 tablet, Refills 0, Tot. Refills 0, Maintenance, Gas, 02/23/22 6:32:00 EDT, Route to Pharmacy Electronically, [facility] #[id number], Partial fill upon patientrequest if the prescription [...] forms faxed on 04/16/18. Provider: Olive Cherys2per chuck splitter 2019 note Social History Social History Type Response Smoking Status Never (less than 100 in life time) entered on: 07/09/21 Sex
--- OUTSIDE RECORDS SUMMARY | 2022-07-16 15:27 | XMS_ITS | Continuity of Care Document ---
:1995 Author Organization [facility] Address [address] [place] [address]- Care Team Providers Name Role Phone Priscila DE JESUS, Selam Primary Care Physician [facility] Date[facility]s): 03[facility]15/21 - 04/14/21 [facility] [address] [place] [id number] Attending Physician: Xiang Perez Admitting Physician: Admtr, Xinag Referring Physician: AdmtrXiang Allergies, Adverse Reactions, Alerts Substance Reaction Severity [...] 2 Refills, Maintenance, 03/11/21 9:14:00 EDT, Tablet, [facility][id number], Partial fill upon patient request if the [...] forms faxed on 04/16/18. Provider: Olive Moralesper annual giving manager 2019 note3 As per [facility] forms faxed on 04/16/18. Provider: Olive Kumari Social History Social History Type Response Smoking Status Never smoker; Tobacco user i n household: No entered on: 02/26/15 Sex
--- OUTSIDE RECORDS SUMMARY | 2022-07-16 15:27 | XMS_ITS | Continuity of Care Document ---
:1995 Author Organization [facility] Address [address] [place] [address], [address] [place] [address]- Care Team Providers Name Role Phone Priscila DE JESUS, Selam Primary Care Physician Encounter [facility] Date(s): 07/05/21 - 08/04/21 [facility] [address] [place] [address], [address] [place] [id number] Allergies, Adverse Reactions, Alerts Substance [...] 0 Refills, Maintenance, 06/15/21 15:03:00 EST, Tablet, [facility] #[id number], Partial fill upon patient request if the prescription is for a schedule II opioid drug., 163, cm, 06/15/21 14:24:00 EST... Start Date: 06/15/21 Status: Orderedketoconazole 2% topical shampoo See Instructions, 1 application Topically once-twice a week, for four weeks, # 240 mL, 1 Refills, Soft Stop, 06/03/21 8:40:00 EDT, Shampoo, [facility] #[id number], 1 application Topically once-twice a week, for four weeks, 163, cm, 05/10/21 14:44... Start Date: 06/03/21 Status: OrderedPrenatal Multivitamins with Folic Acid 1 mg oral capsule See Instructions, TAKE ONE DAILY BY MOUTH, # 100 tablet, 2 Refills, Maintenance, 06/15/21 14:37:00 EST, [facility] #[id number], Partial fill upon patient request if the prescription is for a schedule II opioid drug., TAKE ONE DAILY BY MOUTH, 163,... Start Date: 06/15/21 Status: OrderedUnisom 25 mg oral tablet 1 tablet = 25 mg, By Mouth, Daily at bedtime, PRN for sleep, # 30 tablet, 0 Refills, Maintenance, 07/05/21 11:55:00 EST, Tablet, [facility] #[id number], Partial fill upon patient request if the prescription is for a schedule II opioid drug., 163,... Start Date: 07/05/21 Status: OrderedVitamin B6 25 mg oral tablet 1 tablet = 25 mg, By Mouth, 3 times a day, # 90 tablet, 0 Refills, Maintenance, 07/05/21 11:55:00 EST, [facility] #[id number], Partial fill upon patient request if the [...] forms faxed on 04/16/18. Provider: Olive Moralesper casualty underwriter 2019 note3 As per [facility] forms faxed on 04/16/18. Provider: Olive Kumari Social History Social History Type Response Smoking Status Never (less than 100 in life time) entered on: 07/09/21 Sex
--- OUTSIDE RECORDS SUMMARY | 2022-07-16 15:27 | XMS_ITS | Continuity of Care Document ---
:1995 Author Organization [facility] Address [address] [place] [address], [address] [place] [id number]- Care Team Providers Name Role Phone Olman Wheeler MD Primary Care Physician Encounter [facility] R [id number] Date(s): 04/29/22 - 05/06/22 [facility] [address], [address] [place] [id number] [[email or web address]] Attending Physician: Eva Donahue MD Allergies, Adverse [...] Refills, Soft Stop, 04/19/22 11:15:00 EDT, Tablet, [facility] #[id number], Partial fill upon patient request if the prescription is for a schedule II opioid drug., 163, jersey, 04/15/22 16:06:00 EDT, H... Start Date: 04/19/22 Status: Ordereddocusate sodium 100 mg oral tablet = 100 mg, By Mouth, 2 times a day, # 60 tablet, 0 Refills, Maintenance, 02/23/22 6:32:00 EDT, Tablet, [facility] #[id number], Partial fill upon patient request if the prescription is for a schedule II opioid drug., 163, jersey, 02/23/22 0:05:00 EDT,... Start Date: 02/23/22 Status: Orderedfamotidine 20 mg oral tablet 20 mg, 1, tablet, By Mouth, Daily, # 30 tablet, Refills 0, Tot. Refills 0, Maintenance, 01/12/22 9:47:00 EDT, Route to Pharmacy Electronically, [facility][id number], Partial fill upon patient request if the prescription is for a schedule II opi... Start Date: 01/12/22 Stop Date: 02/11/22 Status: Orderedfolic acid 0.8 mg oral tablet 1 tablet = 0.8 mg, By Mouth, Daily, # 100 tablet, 4 Refills, Maintenance, 09/13/21 13:25:00 EST, Tablet, [facility] #[id number], Partial fill upon patient request if the prescription is for a schedule II opioid drug., 163, jersey, 09/13/21 13:11:00 E... Start Date: 09/13/21 Status: Orderedhydrocortisone 2.5% topical ointment 1 application, Topically, 3 times a day, # 28.35 Gm, 0 Refills, Maintenance, 03/02/22 13:36:00 EDT, Ointment, [facility] #[id number], Partial fill upon patient request if the [...] 4 Refills,Soft Stop, 05/04/22 12:43:00 EDT, Shampoo, [facility] #[id number], Partial fill upon patient request if the prescription is for a schedule II opi... Start Date: 05/04/22 Status: OrderedoxyCODONE 5 mg oral tablet 5 mg, 1, tablet, By Mouth, Every 3 hours, PRN, (7-10), # 7 tablet, Refills 0, Tot. Refills 0, Maintenance, Pain , Severe, 02/23/22 6:32:00 EDT, Route to Pharmacy Electronically, [facility] #[id number], Partial fill upon patient request if the pre... Start Date: 02/23/22 Status: OrderedPrenatal Multivitamins with Folic Acid 1 mg oral capsule See Instructions, TAKE ONE DAILY BY MOUTH, # 100 tablet, 2 Refills, Maintenance, 06/15/21 14:37:00 EST, [facility] #[id number], Partial fill upon patient request if the prescription is for a schedule II opioid drug., TAKE ONE DAILY BY MOUTH, 163,... Start Date: 06/15/21 Status: Orderedsertraline 25 mg oral tablet 1 tablet = 25 mg, By Mouth, Daily, 1 tab po qd x 1 week. If doing well, increase to bid, # 90 tablet, 0 Refills, Maintenance, 04/15/22 16:42:00 EDT, Tablet, [facility] #[id number], Partial fill upon patient request if the prescription is for a sc... Start Date: 04/15/22 Status: Orderedsertraline 50 mg oral tablet 1 tablet = 50 mg, By Mouth, Daily, # 90 tablet, 0 Refills, Maintenance, 04/29/22 12:34:00 EDT, Tablet, [facility] #[id number], Partial fill upon patient request if the prescription is for a schedule II opioid drug., 163, cm, 04/15/22 16:06:00 EDT... Start Date: 04/29/22 Status: Orderedsimethicone 80 mg oral tablet, chewable 80 mg, Chew, 3 times a day, PRN, # 36 tablet, Refills 0, Tot. Refills 0, Maintenance, Gas, 02/23/22 6:32:00 EDT, Route to Pharmacy Electronically, [facility] #[id number], Partial fill upon patientrequest if the prescription [...] forms faxed on 04/16/18. Provider: Olive Cherys2per anesthesiologist and critical care 2019 note Social History Social History Type Response Smoking Status Never (less than 100 in life time) entered on: 07/09/21 Sex Patient Care team information PersonnelName: Olman Wheeler MD Address: Address: [address] [place] [address] [place], [place] [address]
--- OUTSIDE RECORDS SUMMARY | 2022-07-16 15:27 | XMS_ITS | Continuity of Care Document ---
:1995 Author Organization [facility] Address [address] [place] [address], [address] [place] [address]- Care Team Providers Name Role Phone Liam DE JESUS, Olman Primary Care Physician Encounter [facility] Date(s): 05/30/22 - 06/29/22 [facility] [address] [place] [address], [address] [place] [id number] Allergies, Adverse Reactions, Alerts No [...] Refills, Soft Stop, 06/01/22 15:13:00 EDT, Tablet, [facility] #[id number], Partial fill upon patient request if the presc... Start Date: 06/01/22 Status: Ordereddocusate sodium 100 mg oral tablet = 100 mg, By Mouth, 2 times a day, # 60 tablet, 0 Refills, Maintenance, 02/23/22 6:32:00 EDT, Tablet, [facility] #[id number], Partial fill upon patient request if the prescription is for a schedule II opioid drug., 163, cm, 02/23/22 0:05:00 EDT,... Start Date: 02/23/22 Status: Orderedfamotidine 20 mg oral tablet 20 mg, 1, tablet, By Mouth, Daily, # 30 tablet, Refills 0, Tot. Refills 0, Maintenance, 01/12/22 9:47:00 EDT, Route to Pharmacy Electronically, [facility] #[id number], Partial fill upon patient request if the prescription is for a schedule II opi... Start Date: 01/12/22 Stop Date: 02/11/22 Status: Orderedfolic acid 0.8 mg oral tablet 1 tablet = 0.8 mg, By Mouth, Daily, # 100 tablet, 4 Refills, Maintenance, 09/13/21 13:25:00 EST, Tablet, [facility] #[id number], Partial fill upon patient request if the prescription is for a schedule II opioid drug., 163, cm, 09/13/21 13:11:00 E... Start Date: 09/13/21 Status: Orderedhydrocortisone 2.5% topical ointment 1 application, Topically, 3 times a day, # 28.35 Gm, 0 Refills, Maintenance, 03/02/22 13:36:00 EDT, Ointment, [facility] #[id number], Partial fill upon patient request if the [...] 4 Refills,Soft Stop, 06/23/22 16:31:00 EST, Shampoo, [facility] #[id number], Partial fill upon patient request if the prescription is for a schedule II opi... Start Date: 06/23/22 Status: OrderedoxyCODONE 5 mg oral tablet 5 mg, 1, tablet, By Mouth, Every 3 hours, PRN, (7-10), # 7 tablet, Refills 0, Tot. Refills 0, Maintenance, Pain , Severe, 02/23/22 6:32:00 EDT, Route to Pharmacy Electronically, [facility] #[id number], Partial fill upon patient request if the pre... Start Date: 02/23/22 Status: OrderedPrenatal Multivitamins with Folic Acid 1 mg oral capsule See Instructions, TAKE ONE DAILY BY MOUTH, # 100 tablet, 2 Refills, Maintenance, 06/15/21 14:37:00 [id number], Partial fill upon patient request if the prescription is for a schedule II opioid drug., TAKE ONE DAILY BY MOUTH, 163,... Start Date: 06/15/21 Status: Orderedsertraline 25 mg oral tablet 1 tablet = 25 mg, By Mouth, Daily, 1 tab po qd x 1 week. If doing well, increase to bid, # 90 tablet, 0 Refills, Maintenance, 04/15/22 16:42:00 EDT, Tablet, [facility] #[id number], Partial fill upon patient request if the prescription is for a sc... Start Date: 04/15/22 Status: Orderedsertraline 50 mg oral tablet 1 tablet = 50 mg, By Mouth, Daily, # 90 tablet, 0 Refills, Maintenance, 04/29/22 12:34:00 EDT, [id number], Partial fill upon patient request if the prescription is for a schedule II opioid drug., 163, cm, 04/15/22 16:06:00 EDT... Start Date: 04/29/22 Status: Orderedsimethicone 80 mg oral tablet, chewable 80 mg, Chew, 3 times a day, PRN, # 36 tablet, Refills 0, Tot. Refills 0, Maintenance, Gas, 02/23/22 6:32:00 EDT, Route to Pharmacy Electronically, [facility] #[id number], Partial fill upon patientrequest if the prescription [...] forms faxed on 04/16/18. Provider: Olive Cherys2per strong nitric operator 2019 note Social History Social History Type Response Smoking Status Never (less than 100 in life time) entered on: 07/09/21 Sex Patient Care team information Care Team PersonnelName: Olman Wheeler MD Position: S Resident Member Role: PCP Address: Address: [address] [place] [address] [place] [address]- Care Team Related PersonsName: ALEJANDRA THOMPSON Address: home [address] [address] Name: RICHY THOMPSON Address: [id number] Address: home [address] [place] [address] [place] Name: DAVID HARRY Name: GARY ORTIZ Address: [place] [address]
--- OUTSIDE RECORDS SUMMARY | 2022-07-16 15:27 | XMS_ITS | Continuity of Care Document ---
:1995 Author Organization [facility] Address [address] [place] [address]- Care Team Providers Name Role Phone Priscila DE JESUS, Selam Primary Care Physician [facility] Date(s): 03/17/20 - 04/16/20 [facility] [address] [place] [address]- [facility] Allergies, Adverse Reactions, Alerts Substance Reaction Severity [...] Refills, Soft Stop, 04/15/20 8:50:00 EDT, Shampoo, [facility] #[id number], 1 application Topically once-twice a week, for [...]
--- OUTSIDE RECORDS SUMMARY | 2022-07-16 15:27 | XMS_ITS | Continuity of Care Document ---
:1995 Author Organization [facility] Address [address] [place] [address]- Care Team Providers Name Role Phone Priscila DE JESUS, Selam Primary Care Physician [facility] Date(s): 06/23/21 - 07/23/21 [facility] [address] [place] [id number] Attending Physician: AdmXiang lacy Admitting Physician: Admtr, [...] 0 Refills, Maintenance, 06/15/21 15:03:00 EST, Tablet, [email or web address] #[id number], Partial fill upon patient request if the prescription is for a schedule II opioid drug., 163, cm, 06/15/21 14:24:00 EST... Start Date: 06/15/21 Status: Orderedketoconazole 2% topical shampoo See Instructions, 1 application Topically once-twice a week, for four weeks, # 240 mL, 1 Refills, Soft Stop, 06/03/21 8:40:00 EDT, Shampoo, [facility] #[id number], 1 application Topically once-twice a week, for four weeks, [place] Ferraro, 05/10/21 14:44... Start Date: 06/03/21 Status: OrderedPrenatal Multivitamins with Folic Acid 1 mg oral capsule See Instructions, TAKE ONE DAILY BY MOUTH, # 100 tablet, 2 Refills, Maintenance, 06/15/21 14:37:00 EST, [facility] #[id number], Partial fill upon patient request if the prescription is for a schedule II opioid drug., TAKE ONE DAILY BY MOUTH, 163,... Start Date: 06/15/21 Status: OrderedUnisom 25 mg oral tablet 1 tablet = 25 mg, By Mouth, Daily at bedtime, PRN for sleep, # 30 tablet, 0 Refills, Maintenance, 07/05/21 11:55:00 EST, Tablet, [facility] #[id number], Partial fill upon patient request if the prescription is for a schedule II opioid drug., 163,... Start Date: 07/05/21 Status: OrderedVitamin B6 25 mg oral tablet 1 tablet = 25 mg, By Mouth, 3 times a day, # 90 tablet, 0 Refills, Maintenance, 07/05/21 11:55:00 EST, [facility] #[id number], Partial fill upon patient request if the prescription is for a schedule II opioid drug., 163jer[place], 06/15/21 14:24:00 EST... Start Date: 07/05/21 Status: [...] forms faxed on 04/16/18. Provider: Olive Moralesper certified social workers in health care 2019 note3 As per [facility] forms faxed on 04/16/18. Provider: Olive Kumari Social History Social History Type Response Smoking Status Never (less than 100 in life time) entered on: 07/09/21 Sex
--- OUTSIDE RECORDS SUMMARY | 2022-07-16 15:27 | XMS_ITS | Continuity of Care Document ---
:1995 Author Organization [facility] Address [address] [place] [address], [address] [place] [address]- Care Team Providers Name Role Phone Olman Wheeler MD [id number] [address] [place] [address], [address] [place] [id number] Allergies, Adverse Reactions, Alerts No Known Allergies [...] Refills, Soft Stop, 04/19/22 11:15:00 EDT, Tablet, [facility] #[id number], Partial fill upon patient request if the prescription is for a schedule II opioid drug., [place] Ferraro, 04/15/22 16:06:00 EDT, H... Start Date: 04/19/22 Status: Ordereddocusate sodium 100 mg oral tablet = 100 mg, By Mouth, 2 times a day, # 60 tablet, 0 Refills, Maintenance, 02/23/22 6:32:00 EDT, Tablet, [facility] #[id number], Partial fill upon patient request if the prescription is for a schedule II opioid drug., 163jersey, 02/23/22 0:05:00 EDT,... Start Date: 02/23/22 Status: Orderedfamotidine 20 mg oral tablet 20 mg, 1, tablet, By Mouth, Daily, # 30 tablet, Refills 0, Tot. Refills 0, Maintenance, 01/12/22 9:47:00 EDT, Route to Pharmacy Electronically, [facility] #[id number], Partial fill upon patient request if the prescription is for a schedule II opi... Start Date: 01/12/22 Stop Date: 02/11/22 Status: Orderedfolic acid 0.8 mg oral tablet 1 tablet = 0.8 mg, By Mouth, Daily, # 100 tablet, 4 Refills, Maintenance, 09/13/21 13:25:00 EST, Tablet, [facility] #[id number], Partial fill upon patient request if the prescription is for a schedule II opioid drug., 163, jersey, 09/13/21 13:11:00 E... Start Date: 09/13/21 Status: Orderedhydrocortisone 2.5% topical ointment 1 application, Topically, 3 times a day, # 28.35 Gm, 0 Refills, Maintenance, 03/02/22 13:36:00 EDT, Ointment, [facility] #[id number], Partial fill upon patient request if the [...] 4 Refills,Soft Stop, 05/04/22 12:43:00 EDT, Shampoo, [facility] #[id number], Partial fill upon patient request if the prescription is for a schedule II opi... Start Date: 05/04/22 Status: OrderedoxyCODONE 5 mg oral tablet 5 mg, 1, tablet, By Mouth, Every 3 hours, PRN, (7-10), # 7 tablet, Refills 0, Tot. Refills 0, Maintenance, Pain , Severe, 02/23/22 6:32:00 EDT, Route to Pharmacy Electronically, [facility] #[id number], Partial fill upon patient request if the pre... Start Date: 02/23/22 Status: OrderedPrenatal Multivitamins with Folic Acid 1 mg oral capsule See Instructions, TAKE ONE DAILY BY MOUTH, # 100 tablet, 2 Refills, Maintenance, 06/15/21 14:37:00 EST, [facility] #[id number], Partial fill upon patient request if the prescription is for a schedule II opioid drug., TAKE ONE DAILY BY MOUTH, 163,... Start Date: 06/15/21 Status: Orderedsertraline 25 mg oral tablet 1 tablet = 25 mg, By Mouth, Daily, 1 tab po qd x 1 week. If doing well, increase to bid, # 90 tablet, 0 Refills, Maintenance, 04/15/22 16:42:00 EDT, Tablet, [facility] #[id number], Partial fill upon patient request if the prescription is for a sc... Start Date: 04/15/22 Status: Orderedsertraline 50 mg oral tablet 1 tablet = 50 mg, By Mouth, Daily, # 90 tablet, 0 Refills, Maintenance, 04/29/22 12:34:00 EDT, Tablet, [facility] #[id number], Partial fill upon patient request if the prescription is for a schedule II opioid drug., 163, cm, 04/15/22 16:06:00 EDT... Start Date: 04/29/22 Status: Orderedsimethicone 80 mg oral tablet, chewable 80 mg, Chew, 3 times a day, PRN, # 36 tablet, Refills 0, Tot. Refills 0, Maintenance, Gas, 02/23/22 6:32:00 EDT, Route to Pharmacy Electronically, [facility] #[id number], Partial fill upon patientrequest if the prescription [...] forms faxed on 04/16/18. Provider: Olive Cherys2per dairy management specialist 2019 note Social History Social History Type Response Smoking Status Never (less than 100 in life time) entered on: 07/09/21 Sex Patient Care team information PersonnelName: Olman Wheeler MD Address: Address: [address] [place] [address]
--- OUTSIDE RECORDS SUMMARY | 2022-07-16 15:27 | XMS_ITS | Continuity of Care Document ---
:1995 Author Organization [facility] Address [address] [place] [address], [address] [place] [id number]- Care Team Providers Name Role Phone Olman Wheeler MD [id number] Date(s): [facility]15[facility] - 04/22/22 [facility] [address] [place] [address], [address] [place] [id number] [...] Refills, Soft Stop, 04/19/22 11:15:00 EDT, Tablet, [facility] #[id number], Partial fill upon patient request if the prescription is for a schedule II opioid drug., 163, jersey, 04/15/22 16:06:00 EDT, H... Start Date: 04/19/22 Status: Ordereddocusate sodium 100 mg oral tablet = 100 mg, By Mouth, 2 times a day, # 60 tablet, 0 Refills, Maintenance, 02/23/22 6:32:00 EDT, Tablet, [facility] #[id number], Partial fill upon patient request if the prescription is for a schedule II opioid drug., 163, jersey, 02/23/22 0:05:00 EDT,... Start Date: 02/23/22 Status: Orderedfamotidine 20 mg oral tablet 20 mg, 1, tablet, By Mouth, Daily, # 30 tablet, Refills 0, Tot. Refills 0, Maintenance, 01/12/22 9:47:00 EDT, Route to Pharmacy Electronically, [facility] #[id number], Partial fill upon patient request if the prescription is for a schedule II opi... Start Date: 01/12/22 Stop Date: 02/11/22 Status: Orderedfolic acid 0.8 mg oral tablet 1 tablet = 0.8 mg, By Mouth, Daily, # 100 tablet, 4 Refills, Maintenance, 09/13/21 13:25:00 EST, Tablet, [facility] #[id number], Partial fill upon patient request if the prescription is for a schedule II opioid drug., 163, jersey, 09/13/21 13:11:00 E... Start Date: 09/13/21 Status: Orderedhydrocortisone 2.5% topical ointment 1 application, Topically, 3 times a day, # 28.35 Gm, 0 Refills, Maintenance, 03/02/22 13:36:00 EDT, Ointment, [facility] #[id number], Partial fill upon patient request if the [...] Refills, Soft Stop, 11/24/21 16:13:00 EDT, Shampoo, [facility] #[id number], Partial fill upon patient request if the prescription is for a schedule II opioid drug., 1 application Topicall... Start Date: 11/24/21 Status: OrderedoxyCODONE 5 mg oral tablet 5 mg, 1, tablet, By Mouth, Every 3 hours, PRN, (7-10), # 7 tablet, Refills 0, Tot. Refills 0, Maintenance, Pain , Severe, 02/23/22 6:32:00 EDT, Route to Pharmacy Electronically, [facility] #[id number], Partial fill upon patient request if the pre... Start Date: 02/23/22 Status: OrderedPrenatal Multivitamins with Folic Acid 1 mg oral capsule See Instructions, TAKE ONE DAILY BY MOUTH, # 100 tablet, 2 Refills, Maintenance, 06/15/21 14:37:00 EST, [facility] #[id number], Partial fill upon patient request if the prescription is for a schedule II opioid drug., TAKE ONE DAILY BY MOUTH, 163,... Start Date: 06/15/21 Status: Orderedsertraline 25 mg oral tablet 1 tablet = 25 mg, By Mouth, Daily, 1 tab po qd x 1 week. If doing well, increase to bid, # 90 tablet, 0 Refills, Maintenance, 04/15/22 16:42:00 EDT, Tablet, [facility] #[id number], Partial fill upon patient request if the prescription is for a sc... Start Date: 04/15/22 Status: Orderedsimethicone 80 mg oral tablet, chewable 80 mg, Chew, 3 times a day, PRN, # 36 tablet, Refills 0, Tot. Refills 0, Maintenance, Gas, 02/23/22 6:32:00 EDT, [id number], Partial fill upon patientrequest if the prescription [...] forms faxed on 04/16/18. Provider: Olive Cherys2per targeteer 2019 note Vital Signs Most recent to oldest [Reference Range]: 1 Height 163 cm (04/15/22 4:06 PM) Weight 100.0 kg (04/15/22 4:06 PM) Pulse Rate [55-90 bpm] 75 bpm (04/15/22 4:06 PM) Body Mass Index [18.5-24.99] 37.64 *>HHI* (04/15/22 4:06 PM) Blood Pressure [90-138/55-84 mm Hg] 130/76 mm Hg (04/15/22 4:06 PM) Blood pressure sites Arm, right (04/15/22 4:06 PM) Dry Weight 100.0 kg (04/15/22 4:06 PM) Weight Obtained Via Standing scale (04/15/22 4:06 PM) Dry Weight Obtained Via Standing scale (04/15/22 4:06 PM) Social History Social History Type Response Smoking Status Never (less than 100 in life time) entered on: 07/09/21 Sex Care Team PersonnelName: Olman Wheeler MD Address: [address] [place] [address]
--- OUTSIDE RECORDS SUMMARY | 2022-07-16 15:27 | XMS_ITS | Continuity of Care Document ---
:1995 Author Organization [facility] Address [address] [place] [address], [address] [place] [phone]- Care Team Providers Name Role Phone Priscila DE JESUS, Selam Primary Care Physician [facility] Date(s): 12/[facility]21 - 12[facility]13[facility] [address] [place] [address], [address] [place] [id number] Attending Physician: Tho DE JESUS [OB], Joanna [...] 4 Refills, Maintenance, 09/13/21 13:25:00 EST, Tablet, [facility] #[id number], Partial fill upon patient request if the prescription is for a schedule II opioid drug., 163, cm, 09/13/21 13:11:00 E... Start Date: 09/13/21 Status: Orderedketoconazole 2% topical shampoo 1 application, Topically, Once, PRN as needed, # 120 mL, 0 Refills, Soft Stop, 11/24/21 16:13:00 EDT, Shampoo, [facility] #[id number], Partial fill upon patient request if the prescription is for a schedule II opioid drug., 1 application Topicall... Start Date: 11/24/21 Status: OrderedPrenatal Multivitamins with Folic Acid 1 mg oral capsule See Instructions, TAKE ONE DAILY BY MOUTH, # 100 tablet, 2 Refills, Maintenance, 06/15/21 14:37:00 EST, [facility] #[id number], Partial fill upon patient request if the [...] forms faxed on 04/16/18. Provider: Olive Cherys2per obstetrics gynecology md 2019 note Vital Signs Most recent to oldest [Reference Range]: 1 Height 163 cm (12/06/21 11:27 AM) Weight 106.15 kg (12/06/21 11:27 AM) Body Mass Index [18.5-24.99] 39.95 *>HHI* (12/06/21 11:27 AM) Blood Pressure [90-138/55-84 mm Hg] 123/63 mm Hg (12/06/21 11:27 AM) Blood pressure sites Arm, right (12/06/21 11:27 AM) Weight Obtained Via Standing scale (12/06/21 11:27 AM) Social History Social History Type Response Smoking Status Never (less than 100 in life time) entered on: 07/09/21 Sex
--- OUTSIDE RECORDS SUMMARY | 2022-07-16 15:27 | XMS_ITS | Continuity of Care Document ---
:1995 Author Organization [facility] Address [address] [place] [address], [address] [place] [phone]- Care Team Providers Name Role Phone Priscila DE JESUS, Selam [id number] [address], [address] [place] [id number] Attending Physician: Marianela Whyte MD Referring Physician: Tho DE JESUS [OB], Joanna Moya Allergies, Adverse Reactions, Alerts Substance Reaction Severity [...] 0 Refills, Maintenance, 06/15/21 15:03:00 EST, Tablet, [facility] #[id number], Partial fill upon patient request if the prescription is for a schedule II opioid drug., 163, cm, 06/15/21 14:24:00 EST... Start Date: 06/15/21 Status: Orderedketoconazole 2% topical shampoo See Instructions, 1 application Topically once-twice a week, for four weeks, # 240 mL, 1 Refills, Soft Stop, 06/03/21 8:40:00 EDT, Shampoo, [facility] #[id number], 1 application Topically once-twice a week, for four weeks, jersey Ferraro, 05/10/21 14:44... Start Date: 06/03/21 Status: OrderedPrenatal Multivitamins with Folic Acid 1 mg oral capsule See Instructions, TAKE ONE DAILY BY MOUTH, # 100 tablet, 2 Refills, Maintenance, 06/15/21 14:37:00 EST, [facility] #[id number], Partial fill upon patient request if the prescription is for a schedule II opioid drug., TAKE ONE DAILY BY MOUTH, 163,... Start Date: 06/15/21 Status: OrderedUnisom 25 mg oral tablet 1 tablet = 25 mg, By Mouth, Daily at bedtime, PRN for sleep, # 30 tablet, 0 Refills, Maintenance, 07/05/21 11:55:00 EST, Tablet, [facility] #[id number], Partial fill upon patient request if the prescription is for a schedule II opioid drug., 163,... Start Date: 07/05/21 Status: OrderedVitamin B6 25 mg oral tablet 1 tablet = 25 mg, By Mouth, 3 times a day, # 90 tablet, 0 Refills, Maintenance, 07/05/21 11:55:00 EST, [facility] #[id number], Partial fill upon patient request if the [...] forms faxed on 04/16/18. Provider: Olive Moralesper director pharmacovigilance 2019 note3 As per [facility] forms faxed on 04/16/18. Provider: Olive Kumari Social History Social History Type Response Smoking Status Never (less than 100 in life time) entered on: 07/09/21 Sex
--- OUTSIDE RECORDS SUMMARY | 2022-07-16 15:27 | XMS_ITS | Continuity of Care Document ---
:1995 Author Organization [facility] Address [address] [place] [address]- Care Team Providers Name Role Phone Liam DE JESUS, Olman Primary Care Physician Encounter [facility] Date(s): 02/20/22 - 02/23/[address] [id number] Discharge Disposition: A-D/C Home Attending Physician: Eva Donahue MD Admitting Physician: Eva Donahue MD Referring Physician: Eva Donahue MD Allergies, Adverse Reactions, [...] Refills 0, Jenni... Start Date: 02/23/22 Status: OrderedAcetaminophen Tablet 650 mg, Tablet, By Mouth, (1-3), may give 325mg per patient preference and re- dose with 325mg within4 hours, if needed. Patient should only receive a total of 650mg of Acetaminophen every 4 hours., 02/23/22 12:00:00 EDT Start Date: 02/23/22 Stop Date: 02/23/22 Status: CompletedCompression Stockings See Instructions, # 2 each, Refills 0, Tot. Refills 0, Maintenance, surgical, calf length 20-30 mm Hg, 12/06/21 11:55:00 EDT, Supply Start Date: 12/06/21 Status: Ordereddocusate sodium 100 mg oral tablet = 100 mg, By Mouth, 2 times a day, # 60 tablet, 0 Refills, Maintenance, 02/23/22 6:32:00 EDT, Tablet, [facility] #[id number], Partial fill upon patient request if the prescription is for a schedule II opioid drug., 163[place], 02/23/22 0:05:00 EDT,... Start Date: 02/23/22 Status: Orderedfolic acid 0.8 mg oral tablet 1 tablet = 0.8 mg, By Mouth, Daily, # 100 tablet, 4 Refills, Maintenance, 09/13/21 13:25:00 EST, Tablet, [facility] #[id number], Partial fill upon patient request if the [...] 0, Tot. Refills... Start Date: 02/23/22 Status: OrderedIbuprofen Tablet 800 mg, Tablet, By Mouth, (4-6), may give 400mg per patient preference and re- dose with 400mg within8 hours, if needed. Patient should only receive a total of 800mg of Ibuprofen every 8 hours., 02/23/22 12:00:00 EDT Start Date: 02/23/22 Stop Date: 02/23/22 Status: Completedketoconazole 2% topical shampoo 1 application, Topically, Once, PRN as needed, # 120 mL, 0 Refills, Soft Stop, 11/24/21 16:13:00 EDT, Shampoo, [facility] #[id number], Partial fill upon patient request if the prescription is for a schedule II opioid drug., 1 application Topicall... Start Date: 11/24/21 Status: OrderedoxyCODONE 5 mg oral tablet 5 mg, 1, tablet, By Mouth, Every 3 hours, PRN, (7-10), # 7 tablet, Refills 0, Tot. Refills 0, Maintenance, Pain , Severe, 02/23/22 6:32:00 EDT, Route to Pharmacy Electronically, [facility] #[id number], Partial fill upon patient request if the pre... Start Date: 02/23/22 Status: OrderedOxyCODONE IR Tablet 5 mg, Tablet, By Mouth, Every 3 hours, PRN for Pain , Severe, (7-10), Routine, 02/22/22 10:41:00 EDT Start Date: 02/22/22 Stop Date: 02/24/22 Status: DiscontinuedPrenatal Multivitamins with Folic Acid 1 mg oral capsule See Instructions, TAKE ONE DAILY BY MOUTH, # 100 tablet, 2 Refills, Maintenance, 06/15/21 14:37:00 EST, [facility] #[id number], Partial fill upon patient request if the prescription is for a schedule II opioid drug., TAKE ONE DAILY BY MOUTH, 163,... Start Date: 06/15/21 Status: Orderedsimethicone 80 mg oral tablet, chewable 80 mg, Chew, 3 times a day, PRN, # 36 tablet, Refills 0, Tot. Refills 0, Maintenance, Gas, 02/23/22 6:32:00 EDT, Route to Pharmacy Electronically, [facility] #[id number], Partial fill upon patientrequest if the prescription [...] forms faxed on 04/16/18. Provider: Olive Crawford retail sales advisor 2018 note Procedures Procedure Date Related Diagnosis Body Site Status delivery only; 02/21/22 Comp leted Vital Signs Most recent to oldest 1 2 3 [Reference Range]: Height 163 cm 163 cm 163 cm (02/23/22 8:00 AM) (02/23/22 12:05 AM) (02/22/22 6: 35 PM) Weight 108.9 kg 108.9 kg 108.9 kg (02/20/22 10:07 AM) (02/20/22 5:56 AM) (02/20/22 3: 04 AM) Oxygen Saturation [94-100 %] 100 % 100 % 99 % (02/23/22 8:00 AM) (02/23/22 12:05 AM) (02/22/22 6: 35 PM) Pulse Rate [55-90 bpm] 84 bpm 78 bpm 85 bpm (02/23/22 8:00 AM) (02/23/22 12:05 AM) (02/22/22 6: 35 PM) Body Mass Index [18.5-24.99] 40.99 *>HHI* (02/20/22 5:56 AM) Blood Pressure [90-138/55-84 120/85 mm Hg 131/79 mm Hg 131 /78 mm Hg mm Hg] (02/23/22 8:00 AM) (02/23/22 12:05 AM) (02/22/22 6: 35 PM) Respiratory Rate [16-30 18 br/min 18 br/min 18 br/mi n br/min] (02/23/22 11:41 AM) (02/23/22 11:40 AM) (02/23/22 1 1:40 AM) Temperature [96.8-100.4 98.1 DegF 99 DegF 97.6 Deg F DegF] (02/23/22 8:00 AM) (02/23/22 12:05 AM) (02/22/22 6: 35 PM) Mode of Delivery (Oxygen) Room air Room air Room a ir (02/23/22 8:00 AM) (02/23/22 12:05 AM) (02/22/22 8: 00 AM) Blood pressure sites Arm, right Arm, right Arm, left (02/23/22 8:00 AM) (02/23/22 12:05 AM) (02/22/22 8: 00 AM) Temperature Route Oral Oral Oral (02/23/22 8:00 AM) (02/23/22 12:05 AM) (02/22/22 6: 35 PM) Dry Weight 108.9 kg 108.9 kg (02/20/22 5:56 AM) (02/20/22 3:04 AM) Weight Obtained Via Standing scale (02/20/22 3:04 AM) Social History Social History Type Response Smoking Status Never (less than 100 in life time) entered on: 07/09/21 Sex
--- OUTSIDE RECORDS SUMMARY | 2022-07-16 15:27 | XMS_ITS | Continuity of Care Document ---
:1995 Author Organization [facility] [address] [place] [address]- Care Team Providers Name Role Phone Olman Wheeler MD Primary Care Physician En[facility] Date(s): 07/05/22 - 07/12/22 [facility] [address] [place], [place] [address] Attending Physician: Liza Goodman Referring Physician: Not on Staff, Referring MD Allergies, Adverse Reactions, Alerts No Known [...] Refills, Soft Stop, 06/01/22 15:13:00 EDT, Tablet, [facility] #[id number], Partial fill upon patient request if the presc... Start Date: 06/01/22 Status: Ordereddocusate sodium 100 mg oral tablet = 100 mg, By Mouth, 2 times a day, # 60 tablet, 0 Refills, Maintenance, 02/23/22 6:32:00 EDT, Tablet, [facility] #[id number], Partial fill upon patient request if the prescription is for a schedule II opioid drug., 163jersey, 02/23/22 0:05:00 EDT,... Start Date: 02/23/22 Status: Orderedfamotidine 20 mg oral tablet 20 mg, 1, tablet, By Mouth, Daily, # 30 tablet, Refills 0, Tot. Refills 0, Maintenance, 01/12/22 9:47:00 EDT, Route to Pharmacy Electronically, [facility] #[id number], Partial fill upon patient request if the prescription is for a schedule II opi... Start Date: 01/12/22 Stop Date: 02/11/22 Status: Orderedfolic acid 0.8 mg oral tablet 1 tablet = 0.8 mg, By Mouth, Daily, # 100 tablet, 4 Refills, Maintenance, 09/13/21 13:25:00 EST, Tablet, [facility] #[id number], Partial fill upon patient request if the prescription is for a schedule II opioid drug., 163, jersey, 09/13/21 13:11:00 E... Start Date: 09/13/21 Status: Orderedhydrocortisone 2.5% topical ointment 1 application, Topically, 3 times a day, # 28.35 Gm, 0 Refills, Maintenance, 03/02/22 13:36:00 EDT, Ointment, [facility] #[id number], Partial fill upon patient request if the [...] 4 Refills,Soft Stop, 06/23/22 16:31:00 EST, Shampoo, [facility] #[id number], Partial fill upon patient request if the prescription is for a schedule II opi... Start Date: 06/23/22 Status: OrderedoxyCODONE 5 mg oral tablet 5 mg, 1, tablet, By Mouth, Every 3 hours, PRN, (7-10), # 7 tablet, Refills 0, Tot. Refills 0, Maintenance, Pain , Severe, 02/23/22 6:32:00 EDT, Route to Pharmacy Electronically, [facility] #[id number], Partial fill upon patient request if the pre... Start Date: 02/23/22 Status: OrderedPrenatal Multivitamins with Folic Acid 1 mg oral capsule See Instructions, TAKE ONE DAILY BY MOUTH, # 100 tablet, 2 Refills, Maintenance, 06/15/21 14:37:00 EST, [facility] #[id number], Partial fill upon patient request if the prescription is for a schedule II opioid drug., TAKE ONE DAILY BY MOUTH, 163,... Start Date: 06/15/21 Status: OrderedPROzac 20 mg oral capsule 20 mg, 1, capsule, By Mouth, Daily, take 1 pill a day for 1 week. If no side effects Then increase to 2 pills daily in week 2, # 30 capsule, Refills 1, Tot. Refills 1, Maintenance, 07/05/22 10:41:00 EST, Route to Pharmacy Electronically, [facility] Start Date: 07/05/22 Status: Orderedsimethicone 80 mg oral tablet, chewable 80 mg, Chew, 3 times a day, PRN, # 36 tablet, Refills 0, Tot. Refills 0, Maintenance, Gas, 02/23/22 6:32:00 EDT, Route to Pharmacy Electronically, [facility] #[id number], Partial fill upon patientrequest if the prescription is for a schedule II... Start Date: 02/23/22 Status: Ordered Problem List Condition Confirmation Course Effective Dates Status Health Stat us Informant Constipation Confirmed Active COVID-19 affecting Confirmed Active , antepartum Generalized anxiety Confirmed Active disorder1 History of panic Confirmed Active attacks History of Confirmed 2013 Active oligohydramnios2 Obese class II Confirmed Active Post- Confirmed Active depression Depression: MDD Confirmed Active (major depressive disorder), recurrent episode Dermatitis, Confirmed Active seborrheic Uterine scar from Confirmed Active previous delivery Maternal varicella, Confirmed Active non-immune 1As per [facility] forms faxed on 04/16/18. Provider: Olive Crawford ob gyn physician assistant 2019 note Social History Social History Type Response Smoking Status Never (less than 100 in life time) entered on: 07/09/21 Sex Patient Care team information Care Team PersonnelName: Olman Wheeler MD Position: [facility] Resident Member Role: PCP Address: Address: [address] [place] [address] [place] [address]- Care Team Related PersonsName: ALEJANDRA THOMPSON Address: home [address] [place] [id number] Name: RICHY THOMPSON Address: [address] Address: home [address] [place] [id number] Name: DAVID HARRY Name: GARY ORTIZ Address: [place] [address]
--- OUTSIDE RECORDS SUMMARY | 2022-07-16 15:27 | XMS_ITS | Continuity of Care Document ---
:1995 Author Organization [facility] Address [address] [place] [address]- Care Team Providers Name Role Phone Priscila DE JESUS, Selam Primary Care Physician [facility]counter [facility] Date(s): 12/21/21 - 01/20/22 [facility] [address] [place], [place] [address] Allergies, Adverse Reactions, Alerts No Known [...] 4 Refills, Maintenance, 09/13/21 13:25:00 EST, [facility], [id number], Partial fill upon patient request if the prescription is for a schedule II opioid drug., 163, cm, 09/13/21 13:11:00 E... Start Date: 09/13/21 Status: Orderedketoconazole 2% topical shampoo 1 application, Topically, Once, PRN as needed, # 120 mL, 0 Refills, Soft Stop, 11/24/21 16:13:00 EDT, Shampoo, [facility] #[id number], Partial fill upon patient request if the prescription is for a schedule II opioid drug., 1 application Topicall... Start Date: 11/24/21 Status: OrderedPrenatal Multivitamins with Folic Acid 1 mg oral capsule See Instructions, TAKE ONE DAILY BY MOUTH, # 100 tablet, 2 Refills, Maintenance, 06/15/21 14:37:00 EST, [facility] #[id number], Partial fill upon patient request if the [...] forms faxed on 04/16/18. Provider: Olive Cherys2per ruffler 2019 note Social History Social History Type Response Smoking Status Never (less than 100 in life time) entered on: 07/09/21 Sex
--- OUTSIDE RECORDS SUMMARY | 2022-07-16 15:28 | XMS_ITS | Continuity of Care Document ---
:1995 Author Organization [facility] Address [address] [place] [address], [address] [place] [address]- Care Team Providers Name Role Phone Priscila DE JESUS, Selam Primary Care Physician Encounter [facility] [place] [place] Date(s): 01/17/22 - 01/24/22 [facility] [address] [place] [address], [address] [place] [id number] Attending Physician: Godfrey DE JESUS, [...] 4 Refills, Maintenance, 09/13/21 13:25:00 EST, Tablet, [facility] #[id number], Partial fill upon patient request if the prescription is for a schedule II opioid drug., 163, cm, 09/13/21 13:11:00 E... Start Date: 09/13/21 Status: Orderedketoconazole 2% topical shampoo 1 application, Topically, Once, PRN as needed, # 120 mL, 0 Refills, Soft Stop, 11/24/21 16:13:00 EDT, Shampoo, [facility] #[id number], Partial fill upon patient request if the prescription is for a schedule II opioid drug., 1 application Topicall... Start Date: 11/24/21 Status: OrderedPrenatal Multivitamins with Folic Acid 1 mg oral capsule See Instructions, TAKE ONE DAILY BY MOUTH, # 100 tablet, 2 Refills, Maintenance, 06/15/21 14:37:00 EST, [facility] #[id number], Partial fill upon patient request if the [...] forms faxed on 04/16/18. Provider: Olive Moralesper netting weaver 2019 note Vital Signs Most recent to oldest [Reference Range]: 1 Height 163 cm (01/17/22 10:27 AM) Weight 106.36 kg (01/17/22 10:27 AM) Body Mass Index [18.5-24.99] 40.03 *>HHI* (01/17/22 10:27 AM) Blood Pressure [90-138/55-84 mm Hg] 128/62 mm Hg (01/17/22 10:27 AM) Weight Obtained Via Standing scale (01/17/22 10:27 AM) Social History Social History Type Response Smoking Status Never (less than 100 in life time) entered on: 07/09/21 Sex
--- OUTSIDE RECORDS SUMMARY | 2022-07-16 15:28 | XMS_ITS | Continuity of Care Document ---
:1995 Author Organization [facility] Address [address] [place] [address], [address] [place] [address]- Care Team Providers Name Role Phone Priscila DE JESUS, Selam Primary Care Physician Encounter [facility] [place] Date(s): 06/16/21 - 09/03/21 [facility] [employer] [address] [place] [address], [address] [place] [id number] Attending Physician: Tho DE JESUS [OB], Joanna Moya Referring Physician: Selam Francois MD Allergies, Adverse Reactions, Alerts No Known [...] 0 Refills, Maintenance, 06/15/21 15:03:00 EST, Tablet, [email or web address] #[id number], Partial fill upon patient request if the prescription is for a schedule II opioid drug., 163, cm, 06/15/21 14:24:00 EST... Start Date: 06/15/21 Status: Orderedketoconazole 2% topical shampoo See Instructions, 1 application Topically once-twice a week, for four weeks, # 240 mL, 1 Refills, Soft Stop, 06/03/21 8:40:00 EDT, Shampoo, [email or web address] #[id number], 1 application Topically once-twice a week, for four weeks, 163jer[place], 05/10/21 14:44... Start Date: 06/03/21 Status: OrderedPrenatal Multivitamins with Folic Acid 1 mg oral capsule See Instructions, TAKE ONE DAILY BY MOUTH, # 100 tablet, 2 Refills, Maintenance, 06/15/21 14:37:00 EST, [email or web address] #[id number], Partial fill upon patient request if the prescription is for a schedule II opioid drug., TAKE ONE DAILY BY MOUTH, 163,... Start Date: 06/15/21 Status: OrderedUnisom 25 mg oral tablet 1 tablet = 25 mg, By Mouth, Daily at bedtime, PRN for sleep, # 30 tablet, 0 Refills, Maintenance, 07/05/21 11:55:00 EST, Tablet, [email or web address] #[id number], Partial fill upon patient request if the prescription is for a schedule II opioid drug., 163,... Start Date: 07/05/21 Status: OrderedVitamin B6 25 mg oral tablet 1 tablet = 25 mg, By Mouth, 3 times a day, # 90 tablet, 0 Refills, Maintenance, 07/05/21 11:55:00 EST, [email or web address] #[id number], Partial fill upon patient request if the [...] forms faxed on 04/16/18. Provider: Olive Moralesper home appliance washing machine mechanic 2019 note3 As per [facility] forms faxed on 04/16/18. Provider: Olive Kumari Social History Social History Type Response Smoking Status Never (less than 100 in life time) entered on: 07/09/21 Sex
--- OUTSIDE RECORDS SUMMARY | 2022-07-16 15:28 | XMS_ITS | Continuity of Care Document ---
:1995 Author Organization [facility] Address [address] [place] [address]- Care Team Providers Name Role Phone Selam Francois MD Primary Care Physician Encounter [facility] [place](s): 08/04/21 - 09/03/21 [facility] [address] [place], [place] [address] Attending Physician: Xiang Perez Admitting Physician: Xiang Perez Referring Physician: Admtr, Roberto8 Allergies, Adverse Reactions, Alerts No Known Allergies [...] 0 Refills, Maintenance, 06/15/21 15:03:00 EST, Tablet, [facility] #[id number], Partial fill upon patient request if the prescription is for a schedule II opioid drug., 163, cm, 06/15/21 14:24:00 EST... Start Date: 06/15/21 Status: Orderedketoconazole 2% topical shampoo See Instructions, 1 application Topically once-twice a week, for four weeks, # 240 mL, 1 Refills, Soft Stop, 06/03/21 8:40:00 EDT, Shampoo, [facility] #[id number], 1 application Topically once-twice a week, for four weeks, 163, jersey, 05/10/21 14:44... Start Date: 06/03/21 Status: OrderedPrenatal Multivitamins with Folic Acid 1 mg oral capsule See Instructions, TAKE ONE DAILY BY MOUTH, # 100 tablet, 2 Refills, Maintenance, 06/15/21 14:37:00 EST, [facility] #[id number], Partial fill upon patient request if the prescription is for a schedule II opioid drug., TAKE ONE DAILY BY MOUTH, 163,... Start Date: 06/15/21 Status: OrderedUnisom 25 mg oral tablet 1 tablet = 25 mg, By Mouth, Daily at bedtime, PRN for sleep, # 30 tablet, 0 Refills, Maintenance, 07/05/21 11:55:00 EST, Tablet, [facility] #[id number], Partial fill upon patient request if the prescription is for a schedule II opioid drug., 163,... Start Date: 07/05/21 Status: OrderedVitamin B6 25 mg oral tablet 1 tablet = 25 mg, By Mouth, 3 times a day, # 90 tablet, 0 Refills, Maintenance, 07/05/21 11:55:00 EST, [facility] #[id number], Partial fill upon patient request if the [...] forms faxed on 04/16/18. Provider: Olive Moralesper pillar worker 2019 note3 As per [facility] forms faxed on 04/16/18. Provider: Olive Kumari Social History Social History Type Response Smoking Status Never (less than 100 in life time) entered on: 07/09/21 Sex
--- OUTSIDE RECORDS SUMMARY | 2022-07-16 15:28 | XMS_ITS | Continuity of Care Document ---
:1995 Author Organization [facility] [address] [place] [address]- Care Team Providers Name Role Phone Liam DE JESUS, Olman Primary Care Physician Encounter [facility] Date(s): 05/12/22 - 05/19/[address] [place], [place] [address] Attending Physician: Liza Goodman Allergies, Adverse Reactions, Alerts No Known Allergies [...] Refills, Soft Stop, 04/19/22 11:15:00 EDT, Tablet, [facility] #[id number], Partial fill upon patient request if the prescription is for a schedule II opioid drug., [place] Ferraro, 04/15/22 16:06:00 EDT, H... Start Date: 04/19/22 Status: Ordereddocusate sodium 100 mg oral tablet = 100 mg, By Mouth, 2 times a day, # 60 tablet, 0 Refills, Maintenance, 02/23/22 6:32:00 EDT, Tablet, [facility] #[id number], Partial fill upon patient request if the prescription is for a schedule II opioid drug., [place], 02/23/22 0:05:00 EDT,... Start Date: 02/23/22 Status: Orderedfamotidine 20 mg oral tablet 20 mg, 1, tablet, By Mouth, Daily, # 30 tablet, Refills 0, Tot. Refills 0, Maintenance, 01/12/22 9:47:00 EDT, Route to Pharmacy Electronically, [facility] #[id number], Partial fill upon patient request if the prescription is for a schedule II opi... Start Date: 01/12/22 Stop Date: 02/11/22 Status: Orderedfolic acid 0.8 mg oral tablet 1 tablet = 0.8 mg, By Mouth, Daily, # 100 tablet, 4 Refills, Maintenance, 09/13/21 13:25:00 EST, Tablet, [facility] #[id number], Partial fill upon patient request if the prescription is for a schedule II opioid drug., 163, [place], 09/13/21 13:11:00 E... Start Date: 09/13/21 Status: Orderedhydrocortisone 2.5% topical ointment 1 application, Topically, 3 times a day, # 28.35 Gm, 0 Refills, Maintenance, 03/02/22 13:36:00 EDT, Ointment, [facility] #[id number], Partial fill upon patient request if the [...] 4 Refills,Soft Stop, 05/04/22 12:43:00 EDT, Shampoo, [facility] #[id number], Partial fill upon patient request if the prescription is for a schedule II opi... Start Date: 05/04/22 Status: OrderedoxyCODONE 5 mg oral tablet 5 mg, 1, tablet, By Mouth, Every 3 hours, PRN, (7-10), # 7 tablet, Refills 0, Tot. Refills 0, Maintenance, Pain , Severe, 02/23/22 6:32:00 EDT, Route to Pharmacy Electronically, [facility] #[id number], Partial fill upon patient request if the pre... Start Date: 02/23/22 Status: OrderedPrenatal Multivitamins with Folic Acid 1 mg oral capsule See Instructions, TAKE ONE DAILY BY MOUTH, # 100 tablet, 2 Refills, Maintenance, 06/15/21 14:37:00 EST, [facility] #[id number], Partial fill upon patient request if the prescription is for a schedule II opioid drug., TAKE ONE DAILY BY MOUTH, 163,... Start Date: 06/15/21 Status: Orderedsertraline 25 mg oral tablet 1 tablet = 25 mg, By Mouth, Daily, 1 tab po qd x 1 week. If doing well, increase to bid, # 90 tablet, 0 Refills, Maintenance, 04/15/22 16:42:00 EDT, Tablet, [facility] #[id number], Partial fill upon patient request if the prescription is for a sc... Start Date: 04/15/22 Status: Orderedsertraline 50 mg oral tablet 1 tablet = 50 mg, By Mouth, Daily, # 90 tablet, 0 Refills, Maintenance, 04/29/22 12:34:00 EDT, Tablet, [facility] #[id number], Partial fill upon patient request if the prescription is for a schedule II opioid drug., 163, cm, 04/15/22 16:06:00 EDT... Start Date: 04/29/22 Status: Orderedsimethicone 80 mg oral tablet, chewable 80 mg, Chew, 3 times a day, PRN, # 36 tablet, Refills 0, Tot. Refills 0, Maintenance, Gas, 02/23/22 6:32:00 EDT, Route to Pharmacy Electronically, [facility] #[id number], Partial fill upon patientrequest if the prescription [...] forms faxed on 04/16/18. Provider: Olive Moralesper tube sizer and cutter operator 2019 note Vital Signs Most recent to oldest [Reference Range]: 1 Height 163 cm (05/12/22 3:03 PM) Social History Social History Type Response Smoking Status Never (less than 100 in life time) entered on: 07/09/21 Sex Patient Care team information PersonnelName: Olman Wheeler MD Address: Address: [address] [place] [address]
--- OUTSIDE RECORDS SUMMARY | 2022-07-16 15:28 | XMS_ITS | Continuity of Care Document ---
:1995 Author Organization [facility] Address [address] [place] [address], [address] [place] [address]- Care Team Providers Name Role Phone Liam DE JESUS, Olman Primary Care Physician En[place] [facility] Date(s): 02/25/22 - 03/27/22 [facility] [address] [place] [address], [address] [place] [id number] Allergies, Adverse Reactions, Alerts No [...] 0 Refills, Maintenance, 02/23/22 6:32:00 EDT, Tablet, [facility] #[id number], Partial fill upon patient request if the prescription is for a schedule II opioid drug., [place], 02/23/22 0:05:00 EDT,... Start Date: 02/23/22 Status: Orderedfolic acid 0.8 mg oral tablet 1 tablet = 0.8 mg, By Mouth, Daily, # 100 tablet, 4 Refills, Maintenance, 09/13/21 13:25:00 EST, Tablet, [facility] #[id number], Partial fill upon patient request if the prescription is for a schedule II opioid drug., 163, [place], 09/13/21 13:11:00 E... Start Date: 09/13/21 Status: Orderedhydrocortisone 2.5% topical ointment 1 application, Topically, 3 times a day, # 28.35 Gm, 0 Refills, Maintenance, 03/02/22 13:36:00 EDT, [facility] #[id number], Partial fill upon patient request if the [...] 0 Refills, Soft Stop, 11/24/21 16:13:00 EDT, [facility] #[id number], Partial fill upon patient request if the prescription is for a schedule II opioid drug., 1 application Topicall... Start Date: 11/24/21 Status: OrderedoxyCODONE 5 mg oral tablet 5 mg, 1, tablet, By Mouth, Every 3 hours, PRN, (7-10), # 7 tablet, Refills 0, Tot. Refills 0, Maintenance, Pain , Severe, 02/23/22 6:32:00 EDT, Route to Pharmacy Electronically, [facility] #[id number], Partial fill upon patient request if the pre... Start Date: 02/23/22 Status: OrderedPrenatal Multivitamins with Folic Acid 1 mg oral capsule See Instructions, TAKE ONE DAILY BY MOUTH, # 100 tablet, 2 Refills, Maintenance, 06/15/21 14:37:00 EST, [facility] #[id number], Partial fill upon patient request if the prescription is for a schedule II opioid drug., TAKE ONE DAILY BY MOUTH, 163,... Start Date: 06/15/21 Status: Orderedsimethicone 80 mg oral tablet, chewable 80 mg, Chew, 3 times a day, PRN, # 36 tablet, Refills 0, Tot. Refills 0, Maintenance, Gas, 02/23/22 6:32:00 EDT, Route to Pharmacy Electronically, [facility] #[id number], Partial fill upon patientrequest if the prescription [...] forms faxed on 04/16/18. Provider: Olive Moralesper consumer loan specialist 2019 note Social History Social History Type Response Smoking Status Never (less than 100 in life time) entered on: 07/09/21 Sex
--- OUTSIDE RECORDS SUMMARY | 2022-07-16 15:28 | XMS_ITS | Continuity of Care Document ---
:1995 Author Organization [facility] Address [address] [place] [address]- Care Team Providers Name Role Phone Selam Francois MD Primary Care Physician [place] [facility] Date(s): 09/18/19 - 09/25/19 [facility] [address] [place] [address]- [facility] Attending Physician: Rudolph Wolf Referring Physician: Selam Francois MD Allergies, Adverse Reactions, Alerts Substance Reaction Severity Status NKA Active Immunizations Given and Recorded Vaccine Date Status Refusal Reason influenza virus vaccine, inactivated 07/19/17 Given Human Papillomavirus Vaccine 02/21/17 Given Human Papillomavirus Vaccine 10/14/16 Given tetanus/diphtheria/pertussis, acel(Tdap) 11/10/16 Given Medications ibuprofen (OP) 0 Refills, Maintenance, 2 Start Date: 09/18/19 Status: Orderedibuprofen 800 mg oral tablet 800 mg, 1, tablet, By Mouth, Every 8 hours, for 10 days, # 30 tablet, Refills 0, Tot. Refills 0, Acute 09/28/19 15:55:00 EST, 09/18/19 15:55:00 EST, Route to Pharmacy Electronically, [facility] #[id number], 163, cm, 09/18/19 15:31:00 EST, Height Start Date: 09/18/19 Stop Date: 09/28/19 Status: Orderedpenicillin V potassium 500 mg oral tablet 1 tablet = 500 mg, By Mouth, Every 8 hours, for 10 days, # 30 tablet, 0 Refills, Acute 09/28/19 15:54:00 EST, 09/18/19 15:54:00 EST, [facility][id number], 163, cm, 09/18/19 15:31:00 EST, Height Start Date: 09/18/19 Stop Date: 09/28/19 Status: Ordered Problem List Condition Effective Dates [...] oldest [Reference Range]: 1 Height 163 cm (09/18/19 3:31 PM) Oxygen Saturation [94-100 %] 100 % (09/18/19 3:31 PM) Pulse Rate [55-90 bpm] 83 bpm (09/18/19 3:31 PM) Blood Pressure [90-138/55-84 mm Hg] 115/92 mm Hg (09/18/19 3:31 PM) Respiratory Rate [16-30 br/min] 16 br/min (09/18/19 3:31 PM) Temperature [96.8-100.4 DegF] 98.7 DegF (09/18/19 3:31 PM) Mode of Delivery (Oxygen) Room air (09/18/19 3:31 PM) Blood pressure sites Arm, right (09/18/19 3:31 PM) Temperature Route Oral (09/18/19 3:31 PM) Social History Social History Type Response Smoking Status Never smoker; Tobacco user i n household: No entered on: 02/26/15 Sex
--- OUTSIDE RECORDS SUMMARY | 2022-07-16 15:28 | XMS_ITS | Continuity of Care Document ---
:1995 Author Organization [facility] Address [address] [place] [address], [address] [place] [address]- Care Team Providers Name Role Phone Olman Wheeler MD Primary Care Physician Encounter [facility] [id number] Date(s): 01/25/22 - 02/24/22 [facility] [address] [place] [address], [address] [place] [id number] Allergies, Adverse Reactions, Alerts No Known Allergies [...] 0 Refills, Maintenance, 02/23/22 6:32:00 EDT, Tablet, [facility] #[id number], Partial fill upon patient request if the prescription is for a schedule II opioid drug., [place], 02/23/22 0:05:00 EDT,... Start Date: 02/23/22 Status: Orderedfolic acid 0.8 mg oral tablet 1 tablet = 0.8 mg, By Mouth, Daily, # 100 tablet, 4 Refills, Maintenance, 09/13/21 13:25:00 EST, Tablet, [facility] #[id number], Partial fill upon patient request if the [...] Refills, Soft Stop, 11/24/21 16:13:00 EDT, Shampoo, [facility] #[id number], Partial fill upon patient request if the prescription is for a schedule II opioid drug., 1 application Topicall... Start Date: 11/24/21 Status: OrderedoxyCODONE 5 mg oral tablet 5 mg, 1, tablet, By Mouth, Every 3 hours, PRN, (7-10), # 7 tablet, Refills 0, Tot. Refills 0, Maintenance, Pain , Severe, 02/23/22 6:32:00 EDT, Route to Pharmacy Electronically, [facility] #[id number], Partial fill upon patient request if the pre... Start Date: 02/23/22 Status: OrderedPrenatal Multivitamins with Folic Acid 1 mg oral capsule See Instructions, TAKE ONE DAILY BY MOUTH, # 100 tablet, 2 Refills, Maintenance, 06/15/21 14:37:00 EST, [facility] #[id number], Partial fill upon patient request if the prescription is for a schedule II opioid drug., TAKE ONE DAILY BY MOUTH, 163,... Start Date: 06/15/21 Status: Orderedsimethicone 80 mg oral tablet, chewable 80 mg, Chew, 3 times a day, PRN, # 36 tablet, Refills 0, Tot. Refills 0, Maintenance, Gas, 02/23/22 6:32:00 EDT, Route to Pharmacy Electronically, [facility] #[id number], Partial fill upon patientrequest if the prescription [...] forms faxed on 04/16/18. Provider: Olive Cherys2per drum attendant 2019 note Social History Social History Type Response Smoking Status Never (less than 100 in life time) entered on: 07/09/21 Sex
--- OUTSIDE RECORDS SUMMARY | 2022-07-16 15:28 | XMS_ITS | Continuity of Care Document ---
:1995 Author Organization [facility] Address [address] [place] [address]- Care Team Providers Name Role Phone Priscila DE JESUS, Selam Primary Care Physician Encounter [facility] Date(s): 05/05/21 - 06/04/21 [facility] [address] [place], [place] [address] Allergies, Adverse Reactions, Alerts Substance [...] Refills, Soft Stop, 06/03/21 8:40:00 EDT, Shampoo, [facility] #[id number], 1 application Topically once-twice a week, for four weeks, 163 cm, 05/10/21 14:44... Start Date: 06/03/21 Status: Orderedsertraline 50 mg oral tablet 1 tablet = 50 mg, By Mouth, Daily, # 30 tablet, 2 Refills, Maintenance, 03/11/21 9:14:00 EDT, Tablet, [facility] #[id number], Partial fill upon patient request if the prescription is for a schedule II opioid drug., 163 cm, 03/11/21 8:39:00 EDT,... Start Date: 03/11/21 Status: Ordered Problem List Condition Effective Dates Status Health Status Informant Ovarian cyst, right(Confirmed) Active Generalized anxiety Active disorder(Confirmed)1 History of panic attacks(Confirmed) Active History of oligohydramnios(Confirmed)2 2012 Active Cannabis abuse, mild(Confirmed)3 Active Obesity(Confirmed) Active Depression: MDD (major depressive Active disorder), recurrent episode(Confirmed) Dermatitis, seborrheic(Confirmed) Active 1As per [facility] forms faxed on 04/16/18. Provider: Olive Moralesper marketing liaison 2019 note3 As per [facility] forms faxed on 04/16/18. Provider: Olive Kumari Social History Social History Type Response Smoking Status Never smoker; Tobacco user i n household: No entered on: 02/26/15 Sex
--- OUTSIDE RECORDS SUMMARY | 2022-07-16 15:28 | XMS_ITS | Continuity of Care Document ---
:1995 Author Organization [facility] Address [address] [place] [address], [address] [place] [address]- Care Team Providers Name Role Phone Olman Wheeler MD Primary Care Physician [id number] Date(s): 04/18/22 - 05/18/22 [facility] [address], [address] [place] [id number] Attending Physician: Eva Donahue MD Allergies, Adverse [...] Refills, Soft Stop, 04/19/22 11:15:00 EDT, Tablet, [facility] #[id number], Partial fill upon patient request if the prescription is for a schedule II opioid drug., 163, [place], 04/15/22 16:06:00 EDT, H... Start Date: 04/19/22 Status: Ordereddocusate sodium 100 mg oral tablet = 100 mg, By Mouth, 2 times a day, # 60 tablet, 0 Refills, Maintenance, 02/23/22 6:32:00 EDT, Tablet, [facility] #[id number], Partial fill upon patient request if the prescription is for a schedule II opioid drug., 163, [place], 02/23/22 0:05:00 EDT,... Start Date: 02/23/22 Status: Orderedfamotidine 20 mg oral tablet 20 mg, 1, tablet, By Mouth, Daily, # 30 tablet, Refills 0, Tot. Refills 0, Maintenance, 01/12/22 9:47:00 EDT, Route to Pharmacy Electronically, [facility] #[id number], Partial fill upon patient request if the prescription is for a schedule II opi... Start Date: 01/12/22 Stop Date: 02/11/22 Status: Orderedfolic acid 0.8 mg oral tablet 1 tablet = 0.8 mg, By Mouth, Daily, # 100 tablet, 4 Refills, Maintenance, 09/13/21 13:25:00 EST, Tablet, [facility] #[id number], Partial fill upon patient request if the prescription is for a schedule II opioid drug., 163, [place], 09/13/21 13:11:00 E... Start Date: 09/13/21 Status: Orderedhydrocortisone 2.5% topical ointment 1 application, Topically, 3 times a day, # 28.35 Gm, 0 Refills, Maintenance, 03/02/22 13:36:00 EDT, Ointment, [facility] #[id number], Partial fill upon patient request if the [...] 4 Refills,Soft Stop, 05/04/22 12:43:00 EDT, Shampoo, [facility] #[id number], Partial fill upon patient request if the prescription is for a schedule II opi... Start Date: 05/04/22 Status: OrderedoxyCODONE 5 mg oral tablet 5 mg, 1, tablet, By Mouth, Every 3 hours, PRN, (7-10), # 7 tablet, Refills 0, Tot. Refills 0, Maintenance, Pain , Severe, 02/23/22 6:32:00 EDT, Route to Pharmacy Electronically, [facility] #[id number], Partial fill upon patient request if the pre... Start Date: 02/23/22 Status: OrderedPrenatal Multivitamins with Folic Acid 1 mg oral capsule See Instructions, TAKE ONE DAILY BY MOUTH, # 100 tablet, 2 Refills, Maintenance, 06/15/21 14:37:00 EST, [facility] #[id number], Partial fill upon patient request if the prescription is for a schedule II opioid drug., TAKE ONE DAILY BY MOUTH, 163,... Start Date: 06/15/21 Status: Orderedsertraline 25 mg oral tablet 1 tablet = 25 mg, By Mouth, Daily, 1 tab po qd x 1 week. If doing well, increase to bid, # 90 tablet, 0 Refills, Maintenance, 04/15/22 16:42:00 EDT, Tablet, [facility] #[id number], Partial fill upon patient request if the prescription is for a sc... Start Date: 04/15/22 Status: Orderedsertraline 50 mg oral tablet 1 tablet = 50 mg, By Mouth, Daily, # 90 tablet, 0 Refills, Maintenance, 04/29/22 12:34:00 EDT, Tablet, [facility] #[id number], Partial fill upon patient request if the prescription is for a schedule II opioid drug., 163, cm, 04/15/22 16:06:00 EDT... Start Date: 04/29/22 Status: Orderedsimethicone 80 mg oral tablet, chewable 80 mg, Chew, 3 times a day, PRN, # 36 tablet, Refills 0, Tot. Refills 0, Maintenance, Gas, 02/23/22 6:32:00 EDT, Route to Pharmacy Electronically, [facility] #[id number], Partial fill upon patientrequest if the prescription [...] Olive Cherys2per obstetrics gynecology md 2019 note Social History Social History Type Response Smoking Status Never (less than 100 in life time) entered on: 07/09/21 Sex Patient Care team information PersonnelName: Olman Wheeler MD Address: Address: [address] [place] [address] Adult [place], [place] [address]
--- OUTSIDE RECORDS SUMMARY | 2022-07-16 15:28 | XMS_ITS | Continuity of Care Document ---
:1995 Author Organization [facility] Address [address] [place] [address]- Care Team Providers Name Role Phone Priscila DE JESUS, Selam Primary Care Physician Encounter [facility] Date(s): 04/27/21 - 05/27/21 [facility] [address] [place] [address]- Allergies, Adverse Reactions, Alerts Substance Reaction Severity [...] 2 Refills, Maintenance, 03/11/21 9:14:00 EDT, Tablet, [facility] #[id number], Partial fill upon patient request if the [...] per [facility] forms faxed on 04/16/18. Provider: Oliev Moralesper accounts receivable representative 2019 note3 As per [facility] forms faxed on 04/16/18. Provider: Olive Kumari Social History Social History Type Response Smoking Status Never smoker; Tobacco user i n household: No entered on: 02/26/15 Sex
--- OUTSIDE RECORDS SUMMARY | 2022-07-16 15:28 | XMS_ITS | Continuity of Care Document ---
:1995 Author Organization [facility] Address [address] [place] [address], [address] [place] [address]- Care Team Providers Name Role Phone Olman Wheeler MD Primary Care Physician [id number] Date(s): 05/30/22 - 06/06/22 [facility] [address], [address] [place] [id number] Attending Physician: Eva Donahue MD Referring Physician: Olman Wheeler MD Allergies, Adverse Reactions, Alerts No Known [...] Refills, Soft Stop, 06/01/22 15:13:00 EDT, Tablet, [facility] #[id number], Partial fill upon patient request if the presc... Start Date: 06/01/22 Status: Ordereddocusate sodium 100 mg oral tablet = 100 mg, By Mouth, 2 times a day, # 60 tablet, 0 Refills, Maintenance, 02/23/22 6:32:00 EDT, Tablet, [facility] #[id number], Partial fill upon patient request if the prescription is for a schedule II opioid drug., 163, [place], 02/23/22 0:05:00 EDT,... Start Date: 02/23/22 Status: Orderedfamotidine 20 mg oral tablet 20 mg, 1, tablet, By Mouth, Daily, # 30 tablet, Refills 0, Tot. Refills 0, Maintenance, 01/12/22 9:47:00 EDT, Route to Pharmacy Electronically, [facility] #[id number], Partial fill upon patient request if the prescription is for a schedule II opi... Start Date: 01/12/22 Stop Date: 02/11/22 Status: Orderedfolic acid 0.8 mg oral tablet 1 tablet = 0.8 mg, By Mouth, Daily, # 100 tablet, 4 Refills, Maintenance, 09/13/21 13:25:00 EST, Tablet, [facility] #[id number], Partial fill upon patient request if the prescription is for a schedule II opioid drug., 163, cm, 09/13/21 13:11:00 E... Start Date: 09/13/21 Status: Orderedhydrocortisone 2.5% topical ointment 1 application, Topically, 3 times a day, # 28.35 Gm, 0 Refills, Maintenance, 03/02/22 13:36:00 EDT, Ointment, [facility] #[id number], Partial fill upon patient request if the [...] 4 Refills,Soft Stop, 05/04/22 12:43:00 EDT, Shampoo, [facility] #[id number], Partial fill upon patient request if the prescription is for a schedule II opi... Start Date: 05/04/22 Status: OrderedoxyCODONE 5 mg oral tablet 5 mg, 1, tablet, By Mouth, Every 3 hours, PRN, (7-10), # 7 tablet, Refills 0, Tot. Refills 0, Maintenance, Pain , Severe, 02/23/22 6:32:00 EDT, Route to Pharmacy Electronically, [facility] #[id number], Partial fill upon patient request if the pre... Start Date: 02/23/22 Status: OrderedPrenatal Multivitamins with Folic Acid 1 mg oral capsule See Instructions, TAKE ONE DAILY BY MOUTH, # 100 tablet, 2 Refills, Maintenance, 06/15/21 14:37:00 EST, [facility] #[id number], Partial fill upon patient request if the prescription is for a schedule II opioid drug., TAKE ONE DAILY BY MOUTH, 163,... Start Date: 06/15/21 Status: Orderedsertraline 25 mg oral tablet 1 tablet = 25 mg, By Mouth, Daily, 1 tab po qd x 1 week. If doing well, increase to bid, # 90 tablet, 0 Refills, Maintenance, 04/15/22 16:42:00 EDT, Tablet, [facility] #[id number], Partial fill upon patient request if the prescription is for a sc... Start Date: 04/15/22 Status: Orderedsertraline 50 mg oral tablet 1 tablet = 50 mg, By Mouth, Daily, # 90 tablet, 0 Refills, Maintenance, 04/29/22 12:34:00 EDT, Tablet, [facility] #[id number], Partial fill upon patient request if the prescription is for a schedule II opioid drug., 163, cm, 04/15/22 16:06:00 EDT... Start Date: 04/29/22 Status: Orderedsimethicone 80 mg oral tablet, chewable 80 mg, Chew, 3 times a day, PRN, # 36 tablet, Refills 0, Tot. Refills 0, Maintenance, Gas, 02/23/22 6:32:00 EDT, Route to Pharmacy Electronically, [facility] #[id number], Partial fill upon patientrequest if the prescription [...] forms faxed on 04/16/18. Provider: Olive Moralesper animated cartoons painter 2019 note Social History Social History Type Response Smoking Status Never (less than 100 in life time) entered on: 07/09/21 Sex Patient Care team information PersonnelName: Olman Wheeler MD Address: Address: [address] [place] [address]
--- OUTSIDE RECORDS SUMMARY | 2022-07-16 15:28 | XMS_ITS | Continuity of Care Document ---
:1995 Author Organization [facility] Address [address] [place] [address]- Care Team Providers Name Role Phone Priscila DE JESUS, Selam Primary Care Physician Encounter [facility] Date(s): 09/18/19 - 09/28/19 [facility] [address] [place] [address]- [facility] Attending Physician: Xiang Perez Admitting Physician: Admtr, Xiang Referring Physician: AdmtrXiang Allergies, Adverse Reactions, Alerts Substance Reaction Severity Status NKA Active Immunizations Given and Recorded Vaccine Date Status Refusal Reason influenza virus vaccine, inactivated 07/19/17 Given Human Papillomavirus Vaccine 02/21/17 Given Human Papillomavirus Vaccine 10/14/16 Given tetanus/diphtheria/pertussis, acel(Tdap) 11/10/16 Given Medications ibuprofen (OP) 0 Refills, Maintenance, 2 Start Date: 09/18/19 Status: Ordered Problem List Condition Effective Dates [...]
--- OUTSIDE RECORDS SUMMARY | 2022-07-16 15:28 | XMS_ITS | Continuity of Care Document ---
:1995 Author Organization [facility] Address [address] [place] [address], [address] [place] [id number]- Care Team Providers Name Role Phone Priscila DE JESUS, Selam Primary Care Physician Encounter [facility] Date(s): 06/15/21 - 07/15/21 [facility] [address] [place] [address], [address] [place] [id number] Allergies, Adverse Reactions, Alerts Substance Reaction Severity [...] 0 Refills, Maintenance, 06/15/21 15:03:00 EST, Tablet, [facility] #[id number], Partial fill upon patient request if the prescription is for a schedule II opioid drug., 163, cm, 06/15/21 14:24:00 EST... Start Date: 06/15/21 Status: Orderedketoconazole 2% topical shampoo See Instructions, 1 application Topically once-twice a week, for four weeks, # 240 mL, 1 Refills, Soft Stop, 06/03/21 8:40:00 EDT, Shampoo, [facility] #[id number], 1 application Topically once-twice a week, for four weeks, 163, cm, 05/10/21 14:44... Start Date: 06/03/21 Status: OrderedPrenatal Multivitamins with Folic Acid 1 mg oral capsule See Instructions, TAKE ONE DAILY BY MOUTH, # 100 tablet, 2 Refills, Maintenance, 06/15/21 14:37:00 EST, [facility] #[id number], Partial fill upon patient request if the prescription is for a schedule II opioid drug., TAKE ONE DAILY BY MOUTH, 163,... Start Date: 06/15/21 Status: OrderedUnisom 25 mg oral tablet 1 tablet = 25 mg, By Mouth, Daily at bedtime, PRN for sleep, # 30 tablet, 0 Refills, Maintenance, 07/05/21 11:55:00 EST, Tablet, [facility] #[id number], Partial fill upon patient request if the prescription is for a schedule II opioid drug., 163,... Start Date: 07/05/21 Status: OrderedVitamin B6 25 mg oral tablet 1 tablet = 25 mg, By Mouth, 3 times a day, # 90 tablet, 0 Refills, Maintenance, 07/05/21 11:55:00 EST, [facility] #[id number], Partial fill upon patient request if the [...] forms faxed on 04/16/18. Provider: Olive Moralesper assistant store manager operations 2019 note3 As per [facility] forms faxed on 04/16/18. Provider: Olive Kumari Social History Social History Type Response Smoking Status Never (less than 100 in life time) entered on: 07/09/21 Sex
--- OUTSIDE RECORDS SUMMARY | 2022-07-16 15:28 | XMS_ITS | Continuity of Care Document ---
:1995 Author Organization [facility] Address [address] [place] [address]- Care Team Providers Name Role Phone Priscila DE JESUS, Selam Primary Care Physician Encounter [facility] Date(s): 06/07/21 - 07/07/21 [facility] [address], [place] [address] Allergies, Adverse Reactions, Alerts Substance [...] 0 Refills, Maintenance, 06/15/21 15:03:00 EST, Tablet, [facility] #[id number], Partial fill upon patient request if the prescription is for a schedule II opioid drug., 163, cm, 06/15/21 14:24:00 EST... Start Date: 06/15/21 Status: Orderedketoconazole 2% topical shampoo See Instructions, 1 application Topically once-twice a week, for four weeks, # 240 mL, 1 Refills, Soft Stop, 06/03/21 8:40:00 EDT, Shampoo, [facility] #[id number], 1 application Topically once-twice a week, for four weeks, 163, cm, 05/10/21 14:44... Start Date: 06/03/21 Status: OrderedPrenatal Multivitamins with Folic Acid 1 mg oral capsule See Instructions, TAKE ONE DAILY BY MOUTH, # 100 tablet, 2 Refills, Maintenance, 06/15/21 14:37:00 EST, [facility] #[id number], Partial fill upon patient request if the prescription is for a schedule II opioid drug., TAKE ONE DAILY BY MOUTH, 163,... Start Date: 06/15/21 Status: OrderedUnisom 25 mg oral tablet 1 tablet = 25 mg, By Mouth, Daily at bedtime, PRN for sleep, # 30 tablet, 0 Refills, Maintenance, 07/05/21 11:55:00 EST, Tablet, [facility] #[id number], Partial fill upon patient request if the prescription is for a schedule II opioid drug., 163,... Start Date: 07/05/21 Status: OrderedVitamin B6 25 mg oral tablet 1 tablet = 25 mg, By Mouth, 3 times a day, # 90 tablet, 0 Refills, Maintenance, 07/05/21 11:55:00 EST, [facility] #[id number], Partial fill upon patient request if the [...] faxed on 04/16/18. Provider: Olive Moralesper computer aided design technician 2019 note3 As per [facility] forms faxed on 04/16/18. Provider: Olive Kumari Social History Social History Type Response Smoking Status Never smoker; Tobacco user i n household: No entered on: 02/26/15 Sex
--- OUTSIDE RECORDS SUMMARY | 2022-07-16 15:28 | XMS_ITS | Continuity of Care Document ---
:1995 Author Organization [facility] Address [address] [place] [address], [address] [place] [id number]- Care Team Providers Name Role Phone Olman Wheeler MD Primary Care Physician Encounter [facility] R [id number] Date(s): 03/18/22 - 04/17/22 [facility] [address] [place] [address], [address] [place] [id number] Allergies, Adverse Reactions, Alerts No [...] 0 Refills, Maintenance, 02/23/22 6:32:00 EDT, Tablet, [facility] #[id number], Partial fill upon patient request if the prescription is for a schedule II opioid drug., 163, cm, 02/23/22 0:05:00 EDT,... Start Date: 02/23/22 Status: Orderedfamotidine 20 mg oral tablet 20 mg, 1, tablet, By Mouth, Daily, # 30 tablet, Refills 0, Tot. Refills 0, Maintenance, 01/12/22 9:47:00 EDT, Route to Pharmacy Electronically, [facility] #[id number], Partial fill upon patient request if the prescription is for a schedule II opi... Start Date: 01/12/22 Stop Date: 02/11/22 Status: Orderedfolic acid 0.8 mg oral tablet 1 tablet = 0.8 mg, By Mouth, Daily, # 100 tablet, 4 Refills, Maintenance, 09/13/21 13:25:00 EST, Tablet, [facility] #[id number], Partial fill upon patient request if the prescription is for a schedule II opioid drug., 163, cm, 09/13/21 13:11:00 E... Start Date: 09/13/21 Status: Orderedhydrocortisone 2.5% topical ointment 1 application, Topically, 3 times a day, # 28.35 Gm, 0 Refills, Maintenance, 03/02/22 13:36:00 EDT, Ointment, [facility] #[id number], Partial fill upon patient request if the [...] Refills, Soft Stop, 11/24/21 16:13:00 EDT, Shampoo, [facility] #[id number], Partial fill upon patient request if the prescription is for a schedule II opioid drug., 1 application Topicall... Start Date: 11/24/21 Status: OrderedoxyCODONE 5 mg oral tablet 5 mg, 1, tablet, By Mouth, Every 3 hours, PRN, (7-10), # 7 tablet, Refills 0, Tot. Refills 0, Maintenance, Pain , Severe, 02/23/22 6:32:00 EDT, Route to Pharmacy Electronically, [facility] #[id number], Partial fill upon patient request if the pre... Start Date: 02/23/22 Status: OrderedPrenatal Multivitamins with Folic Acid 1 mg oral capsule See Instructions, TAKE ONE DAILY BY MOUTH, # 100 tablet, 2 Refills, Maintenance, 06/15/21 14:37:00 EST, [facility] #[id number], Partial fill upon patient request if the prescription is for a schedule II opioid drug., TAKE ONE DAILY BY MOUTH, 163,... Start Date: 06/15/21 Status: Orderedsertraline 25 mg oral tablet 1 tablet = 25 mg, By Mouth, Daily, 1 tab po qd x 1 week. If doing well, increase to bid, # 90 tablet, 0 Refills, Maintenance, 04/15/22 16:42:00 EDT, Tablet, [facility] #[id number], Partial fill upon patient request if the prescription is for a sc... Start Date: 04/15/22 Status: Orderedsimethicone 80 mg oral tablet, chewable 80 mg, Chew, 3 times a day, PRN, # 36 tablet, Refills 0, Tot. Refills 0, Maintenance, Gas, 02/23/22 6:32:00 EDT, Route to Pharmacy Electronically, [facility] #[id number], Partial fill upon patientrequest if the prescription [...] forms faxed on 04/16/18. Provider: Olive Cherys2per hand polisher 2019 note Social History Social History Type Response Smoking Status Never (less than 100 in life time) entered on: 07/09/21 Sex Care Team PersonnelName: Olman Wheeler MD Address: [address] [place] [address]
--- OUTSIDE RECORDS SUMMARY | 2022-07-16 15:28 | XMS_ITS | Continuity of Care Document ---
:1995 Author Organization [facility] Address [address] [place] [address], [address] [place] [id number]- Care Team Providers Name Role Phone Priscila DE JESUS, Selam Primary Care Physician Encounter [facility] Date(s): 11/17/21 - 11/24/21 [facility], [address] [place] [id number] Attending Physician: Tho DE JESUS [OB], Joanna [...] 4 Refills, Maintenance, 09/13/21 13:25:00 EST, Tablet, [facility] #[id number], Partial fill upon patient request if the prescription is for a schedule II opioid drug., 163, cm, 09/13/21 13:11:00 E... Start Date: 09/13/21 Status: Orderedketoconazole 2% topical shampoo 1 application, Topically, Once, PRN as needed, # 120 mL, 0 Refills, Soft Stop, 11/24/21 16:13:00 EDT, Shampoo, [facility] #[id number], Partial fill upon patient request if the prescription is for a schedule II opioid drug., 1 application Topicall... Start Date: 11/24/21 Status: OrderedPrenatal Multivitamins with Folic Acid 1 mg oral capsule See Instructions, TAKE ONE DAILY BY MOUTH, # 100 tablet, 2 Refills, Maintenance, 06/15/21 14:37:00 [facility] #[id number], Partial fill upon patient request if the [...] forms faxed on 04/16/18. Provider: Olive Cherys2per regular senior care provider 2019 note Social History Social History Type Response Smoking Status Never (less than 100 in life time) entered on: 07/09/21 Sex
--- OUTSIDE RECORDS SUMMARY | 2022-07-16 15:28 | XMS_ITS | Continuity of Care Document ---
:1995 Author Organization [facility] Address [address] [place] [address], [address] [place] [id number]- Care Team Providers Name Role Phone Priscila DE JESUS, Selam Primary Care Phys[id number] - [facility]11[facility] [address] [place] [address], [address] [place] [id number] Attending Physician: Eva Donahue MD Referring Physician: Tho DE JESUS [OB], Jaonna Moya Allergies, Adverse Reactions, Alerts No Known [...] 4 Refills, Maintenance, 09/13/21 13:25:00 EST, Tablet, [facility] #[id number], Partial fill upon patient request if the prescription is for a schedule II opioid drug., 163, cm, 09/13/21 13:11:00 E... Start Date: 09/13/21 Status: Orderedketoconazole 2% topical shampoo 1 application, Topically, Once, PRN as needed, # 120 mL, 0 Refills, Soft Stop, 11/24/21 16:13:00 EDT, Shampoo, [facility] #[id number], Partial fill upon patient request if the prescription is for a schedule II opioid drug., 1 application Topicall... Start Date: 11/24/21 Status: OrderedMacrobid macrocrystals-monohydrate 100 mg oral capsule 1 capsule = 100 mg, By Mouth, 2 times a day, for 7 days, # 14 capsule, 0 Refills, Acute 01/14/22 10:04:00 EDT, 01/07/22 10:04:00 EDT, Capsule, [facility] #[id number], Partial fill upon patient request if the prescription is for a schedule II opio... Start Date: 01/07/22 Stop Date: 01/14/22 Status: OrderedPrenatal Multivitamins with Folic Acid 1 mg oral capsule See Instructions, TAKE ONE DAILY BY MOUTH, # 100 tablet, 2 Refills, Maintenance, 06/15/21 14:37:00 EST, [facility] #[id number], Partial fill upon patient request if the [...] forms faxed on 04/16/18. Provider: Olive Moralesper national account representative 2019 note Vital Signs Most recent to oldest [Reference Range]: 1 Height 163 cm (01/04/22 3:57 PM) Weight 105.00 kg (01/04/22 3:57 PM) Body Mass Index [18.5-24.99] 39.52 *>HHI* (01/04/22 3:57 PM) Blood Pressure [90-138/55-84 mm Hg] 110/60 mm Hg (01/04/22 3:57 PM) Blood pressure sites Arm, right (01/04/22 3:57 PM) Weight Obtained Via Standing scale (01/04/22 3:57 PM) Social History Social History Type Response Smoking Status Never (less than 100 in life time) entered on: 07/09/21 Sex
--- OUTSIDE RECORDS SUMMARY | 2022-07-16 15:28 | XMS_ITS | Continuity of Care Document ---
:1995 Author Organization [facility] [address] [place] [address]- Care Team Providers Name Role Phone Olman Wheeler MD Primary Care Physician Encounter [facility] Date(s): 03/24/22 - 03/31/22 [facility] [address] [place], [place] [address] Attending Physician: Benson Mccabe MD Referring Physician: Godfrey DE JESUS, Eva [...] 0 Refills, Maintenance, 02/23/22 6:32:00 EDT, Tablet, [facility] #[id number], Partial fill upon patient request if the prescription is for a schedule II opioid drug., jersey Ferraro, 02/23/22 0:05:00 EDT,... Start Date: 02/23/22 Status: Orderedfolic acid 0.8 mg oral tablet 1 tablet = 0.8 mg, By Mouth, Daily, # 100 tablet, 4 Refills, Maintenance, 09/13/21 13:25:00 EST, Tablet, [facility] #[id number], Partial fill upon patient request if the prescription is for a schedule II opioid drug., [place], 09/13/21 13:11:00 E... Start Date: 09/13/21 Status: Orderedhydrocortisone 2.5% topical ointment 1 application, Topically, 3 times a day, # 28.35 Gm, 0 Refills, Maintenance, 03/02/22 13:36:00 EDT, [facility][id number], Partial fill upon patient request if the [...] 0 Refills, Soft Stop, 11/24/21 16:13:00 EDT, [id number], Partial fill upon patient request if the prescription is for a schedule II opioid drug., 1 application Topicall... Start Date: 11/24/21 Status: OrderedoxyCODONE 5 mg oral tablet 5 mg, 1, tablet, By Mouth, Every 3 hours, PRN, (7-10), # 7 tablet, Refills 0, Tot. Refills 0, Maintenance, Pain , Severe, 02/23/22 6:32:00 EDT, Route to Pharmacy Electronically, [facility] #[id number], Partial fill upon patient request if the pre... Start Date: 02/23/22 Status: OrderedPrenatal Multivitamins with Folic Acid 1 mg oral capsule See Instructions, TAKE ONE DAILY BY MOUTH, # 100 tablet, 2 Refills, Maintenance, 06/15/21 14:37:00 EST, [facility] #[id number], Partial fill upon patient request if the prescription is for a schedule II opioid drug., TAKE ONE DAILY BY MOUTH, 163,... Start Date: 06/15/21 Status: Orderedsimethicone 80 mg oral tablet, chewable 80 mg, Chew, 3 times a day, PRN, # 36 tablet, Refills 0, Tot. Refills 0, Maintenance, Gas, 02/23/22 6:32:00 EDT, Route to Pharmacy Electronically, [facility] #[id number], Partial fill upon patientrequest if the prescription [...] forms faxed on 04/16/18. 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
[2022-07-16 16:07] LABS: IDNOW Serial# 08D9AD1C; Strep A Nucleic Acid Negative (Negative)
[2022-07-16 16:21] LABS: Monotest Negative (Negative)
[2022-07-16] MEDS: Lidocaine HCl Viscous 2 % 15 ML SOLUTION MUCOUS MEM (16:30)
[2022-07-16] MEDS: Ibuprofen 600 MG TABLET PO (16:30)
[2022-07-16 16:33] LABS: Influenza A PCR NEGATIVE (Negative); Influenza B PCR NEGATIVE (Negative); Resp Syncy Virus RNA Qual PCR NEGATIVE (Negative); SARS COV2 PCR INHOUSE NEGATIVE (Negative)
== END 2022-07-16 17:00 | disposition home or self-care (01) ==
PROVIDERS: Physician Assistant; Emergency Provider Emergency Medicine; PCP Internal Medicine
DX: J06.9 Acute upper respiratory infection, unspecified (principal); Z20.822 Contact with and (suspected) exposure to COVID-19
CPT/HCPCS: 0241U; 36415; 86308; 87651; 99283

== ENCOUNTER 2022-07-20 03:06 | Emergency (ER) | payer OTHER, SELFPAY ==
[2022-07-20 03:08] VITALS: BP 140/87; PULSE 68; RESP 16; TEMP 36.7; O2SAT 100; BMI 32.4
--- NOTE | 2022-07-20 05:10 | PC.NURSE ---
Pt called for reassessment, pt not in waiting room.
--- NOTE | 2022-07-20 05:49 | PC.NURSE ---
Pt called for triage reassessment. Pt not in waiting room, Pt name called 3 times no answer.
== END 2022-07-20 05:49 | disposition left against medical advice (07) ==
PROVIDERS: Emergency Provider Emergency Medicine
DX: J02.9 Acute pharyngitis, unspecified (principal)
CPT/HCPCS: 99281

== ENCOUNTER 2023-03-11 16:35 | Emergency (ER) | payer OTHER, SELFPAY ==
[2023-03-11 17:19] VITALS: BP 121/79; PULSE 75; RESP 20; TEMP 36.4; O2SAT 100; BMI 31.8
--- NOTE | 2023-03-11 17:21 | ED_ITS ---
HPI - Female Genitourinary General Chief complaint: Urogenital-Female Stated complaint: ? uti Time Seen by Provider: 03/11/23 18:39 Source: patient Mode of arrival: ambulatory Limitations: no limitations History of Present Illness MD elicited complaint: vaginal discharge and genital itching Pertinent past history: other (vaginitis) Onset (ago): day(s) (2) Location of symptoms: external genitalia Severity: mild Female Urogenital Radiation: Non-Radiating Quality of pain: burning Consistency: intermittent Vaginal discharge: white Vaginal bleeding: none Exacerbating factors: none Relieving factors: none Associated symptoms: denies other symptoms Treatment prior to arrival: none Sexual activity: Yes Patient : No Related Data Previous Rx's Medication Instructions Recorded ibuprofen 600 mg tablet 600 mg PO Q8H PRN fever or pain 07/16/22 #20 tabs fluconazole 150 mg tablet 150 mg PO DAILY #1 tab 03/11/23 (Diflucan) Allergies Allergy/AdvReac Type Severity Reaction Status Date / Time No Known Allergies Allergy Verified 03/11/23 17:18 [No Known Allergies*] Review of Systems Review of Systems: Constitutional : No Weight loss, No Fever, No Chills Cardiovascular : No Chest Pain, No SOB, NoEdema Respiratory : No Cough, No Sputum, No Wheezing Gastrointestinal : no Nausea, no Vomiting, no Diarrhea, no abdominal Pain, No Hematochezia, No Melena Genitourinary : No Dysuria, No Urinary Frequency, No Hematuria, No Urgency , pos vaginal pain and itching Musculoskeletal : No joint pain, No Myalgias, No Joint Swelling Skin : No Skin Lesions, No rash Neuro : No Weakness, No Numbness, No Dizziness, No Headache PMFSH Past Medical History Attestation statement: The following information was validated with the patient. Medical History Yoli vaginitis Social History Social History (Updated 03/11/23 @ 19:09 by Kamila Munoz DO) Patient Tobacco Use Status: Never used Tobacco Advance Directives: No Advance Directives Information Provided: No Patient : No Physical Exam Vital Signs: Vital Signs: Last Vital Signs Temp 99.7 F 03/11/23 18:36 Pulse 67 03/11/23 18:36 Resp 18 03/11/23 18:36 BP 125/74 03/11/23 18:36 Pulse Ox 100 03/11/23 18:36 O2 Del Method Room Air 03/11/23 18:36 BMI result Body Mass Index 31.8 Appearance: Alert. Oriented X3. No acute distress. Eyes: Pupils equal, round and reactive to light. ENT: Pharynx normal. Neck: Normal inspection. Neck supple. CVS: Normal heart rate and rhythm. Pulses normal. Respiratory: No respiratory distress. Breath sounds normal. Abdomen: Soft and nontender. Skin: Skin warm and dry. Normal skin color. Normal skin turgor. Extremities: No lower extremity edema. Neuro: Oriented X 3. No motor deficit. No sensory deficit. Course Course Course Narrative: This is an RME: Additional HPI, ROS, PE not included below will be deferred to primary provider. patient is a 27-year-old female who presents emergency department for evaluation of vaginal itching, burning, pelvic pain, increased vaginal discharge, and dysuria, tactile fever. Was seen by OBGYN 1 month ago, tx for yeast infection. Denies concern for STI, has testing already Plan: urinalysis Medications Administered Discontinued Medications Generic Name Dose Route Start Last Admin Trade Name Freq PRN Reason Stop Dose Admin Fluconazole 150 mg 03/11/23 18:53 03/11/23 18:58 Fluconazole 150 Mg Tablet PO 03/11/23 18:54 150 mg ONCE ONE Administration Medical Decision Making Medical Decision Making [facility] Narrative: 27 yo female recurrent yeast vaginitis does not douche, has one partner - he is uncircumcised we did talk about hygiene she has no abdominal pain or fevers or concerns for STI she gets these recurrent - at this time will start on diflucan and send home to OBGYN I did check fingerstick which was normal Differential Diagnosis Differential Diagnoses: The differential diagnosis associated with the presentation includes candidal vaginitis, UTI, hyperglycemia Lab Data [facility] Lab Attestation statement: I reviewed the patient's lab results. Labs: Lab Results 03/11/23 03/11/23 03/11/23 Range/Units 18:02 18:02 18:55 POC Glucose 62 (60-115) mg/dL Urine Color Yellow Urine Appearance Cloudy Urine pH 6.0 (5.0-9.0) Ur Specific [place] 1.020 (1.005-1.025) Urine Protein Negative (Neg-Trace) mg/dL Urine Glucose (UA) Negative (Negative) mg/dL Urine Ketones Negative (Negative) mg/dL Urine Blood Negative (Negative) Urine Nitrite Negative (Negative) Ur Leukocyte Esterase Large (3+) H (Negative) Urine RBC >20 H (0-2) /HPF Urine WBC 21-50 H (0-5) /HPF Ur Squamous Epith Cells 11-20 (0-2) /HPF Urine Bacteria 1+ (None Seen) Hyaline Casts 0-2 (0-2) /LPF Urine Yeast Present Urine Test NEGATIVE (NEGATIVE) External Record Review External record reviewed: Prior outpatient labs Tests considered The following testing was considered but not selected: declines STI panel has no complaints Chronic Conditions Patient?s care impacted by: Other (diflucan) Discharge Plan Discharge Clinical Impression: Oyli vaginitis Patient Disposition: Home, Self-Care Instructions: Yeast Infection (ED) Additional Instructions: return for worsening symptoms. repeat diflucan in 3 days. remember to follow up with your OBGYN - return for worsening symptoms such as pain, fever, vomiting, nausea or any other concerns. Prescriptions: New fluconazole [Diflucan] 150 mg tablet 150 mg PO DAILY Qty: 1 1RF No Action ibuprofen 600 mg tablet 600 mg PO Q8H PRN (Reason: fever or pain) Qty: 20 0RF Interventions: ED Discharge Assessment Last Done: 03/11/23 19:19 Discharge Date/Time: 03/11/23 19:19
[2023-03-11 18:30] LABS: Appearance Urine Cloudy; Color Urine Yellow; Glucose Urine UA Negative (Negative); Leukocyte Esterase Urine Large (3+) (Negative); Nitrite Urine Negative (Negative); UMIC TRIGGER UACC YES; Urine Blood Negative (Negative); Urine Ketones Negative (Negative); Urine Protein Negative (Neg-Trace)
[2023-03-11 18:36] VITALS: BP 125/74; PULSE 67; RESP 18; TEMP 37.6; O2SAT 100
[2023-03-11 18:43] LABS: UPreg QC Valid YES; Urine Pregnancy NEGATIVE (NEGATIVE)
[2023-03-11 18:45] LABS: Bacteria Urine 1+ (None Seen); Hyaline Casts Urine 0-2 /LPF (0-2); RBC Urine >20 /HPF (0-2); UACC Culture Trigger YES; WBC Urine 21-50 /HPF (0-5)
[2023-03-11] MEDS: Fluconazole 150 MG TABLET PO (18:58)
[2023-03-11 18:59] LABS: Glucose, Whole Blood 62 mg/dL (60-115)
== END 2023-03-11 19:19 | disposition home or self-care (01) ==
PROVIDERS: Nurse Practitioner Family; Emergency Provider Emergency Medicine
DX: B37.31 Acute candidiasis of vulva and vagina (principal); N89.8 Other specified noninflammatory disorders of vagina
CPT/HCPCS: 81001; 81025; 82947; 87086; 99283

== ENCOUNTER 2024-01-03 21:15 | Emergency (ER) | payer OTHER, SELFPAY ==
[2024-01-03 21:19] VITALS: BP 124/79; PULSE 69; RESP 18; TEMP 36.5; O2SAT 100
[2024-01-03 21:52] LABS: IDNOW Serial# 08D9AD1C; Strep A Nucleic Acid Negative (Negative)
[2024-01-03 21:54] LABS: COVID-19 Test Negative (Negative); IDNOW Serial# 152EDE1D
--- NOTE | 2024-01-03 22:21 | PC.NURSE ---
pt from home, a&ox4, respirations even and unlabored. pt reporting onset of throat pain x6 days. pt reports starting today the pain increased and has been hard to swallow PO fluids and food. pt reports nausea, denies vomiting and diarrhea. pt throat noted to be red but no white spots, pt able to speak in full clear sentences and is able to tolerate own secretions.
[2024-01-03 22:26] LABS: IDNOW Serial# 9DB6401D; Influenza A Negative (Negative); Influenza B2 Negative (Negative)
--- NOTE | 2024-01-03 22:50 | ED.URI ---
HPI - URI/Sore Throat General Chief Complaint: Upper Respiratory Symptoms Stated Complaint: throat pain moving up to ear Time Seen by Provider: 01/03/24 22:32 Source: patient Mode of arrival: ambulatory Limitations: no limitations History of Present Illness ED Provider: Dr. Keara Stark HPI Narrative: patient comes to the emergency room complaining of a sore throat for 6 days. Patient states that she has been taking Tylenol ibuprofen [id number]. No fever chills. Patient states that the sore throat radiates towards her right ear. No dental pain. Related Data Previous Rx's ?Medication ?Instructions ?Recorded ibuprofen 600 mg tablet 600 mg PO Q8H PRN fever or pain 07/16/22 #20 tabs fluconazole 150 mg tablet 150 mg PO DAILY #1 tab 03/11/23 (Diflucan) acetaminophen 500 mg tablet 500 mg PO QID PRN fever or pain 01/03/24 #14 tabs benzocaine 15 mg lozenges 15 mg mucous membrane Q2-3H PRN 01/03/24 sore throat #18 ea ibuprofen 600 mg tablet 600 mg PO TID #10 tabs 01/03/24 Allergies Allergy/AdvReac Type Severity Reaction Status Date / Time No Known Allergies Allergy Verified 01/03/24 21:20 [No Known Allergies*] Review of Systems Review of Systems: Constitutional : No Weight loss, No Fever, No Chills, No Night Sweats, No Fatigue, No Malaise ENT/Mouth : No Hearing loss, complaining of right-sided Ear Pain, No Nasal Congestion, No Sinus Pain, No Hoarseness, Complaining of sore throat, No Rhinorrhea, No Swallowing Difficulty Eyes: No Eye Pain, No Swelling, No Redness, No Foreign Body, No Discharge, No Vision Changes Cardiovascular : No Chest Pain, No SOB, No Dyspnea on Exertion, No Orthopnea, No Edema, No Palpitations Respiratory : No Cough, No Sputum, No Wheezing, No Smoke Exposure, No Dyspnea Gastrointestinal : No Nausea, No Vomiting, No Diarrhea, No Constipation, No abdominal Pain, No Hematochezia, No Melena Genitourinary : no irregular bleeding, No Dysuria, No Urinary Frequency, No Hematuria, No Urinary Incontinence, No Urgency, No Flank Pain, No Urinary Flow Changes, No Hesitancy Musculoskeletal : No joint pain, No Myalgias, No Joint Swelling Skin : No Skin Lesions, No rash Neuro : No Weakness, No Numbness, No Paresthesias, No Loss of Consciousness, No Dizziness, No Headache Psych : No Anxiety/Panic, No Depression, No SI/HI/AH/VH, No Social Issues, Heme/Lymph: No Bruising, No Bleeding,No Lymphadenopathy Endocrine : No Polyuria, No Polydipsia, No Temperature Intolerance PMFSH Past Medical History Medical History Yoli vaginitis Social History Social History (Updated 03/11/23 @ 19:09 by Kamila Munoz DO) Patient Tobacco Use Status: Never used Tobacco Smoked in Last 30 Days: No Use of substances other than those prescribed or required for medical reasons: Yes Substance Use Type: Marijuana Substance Use Frequency: Daily Advance Directives: No Advance Directives Information Provided: No Do you have a plan to hurt others: No Plan Patient : No Physical Exam Vital Signs: Vital Signs: Last Vital Signs Temp 97.7 F 01/03/24 21:19 Pulse 69 01/03/24 21:19 Resp 18 01/03/24 21:19 BP 124/79 01/03/24 21:19 Pulse Ox 100 01/03/24 21:19 O2 Del Method Room Air 01/03/24 21:19 BMI result Body Mass Index 30.0 Const: Other: Appearance: Alert. Oriented X3. No acute distress. Eyes: Pupils equal, round and reactive to light. ENT: bilateral erythema, swollen tonsils bilaterally, no exudates, good patent airway. Bilateral tympanic membranes and ear canals within normal limits, no erythema or discharge. Neck: Normal inspection. Neck supple. No lymph nodes noted. No crepitus CVS: Normal heart rate and rhythm. Pulses normal. Normal S1 and S2 Respiratory: No respiratory distress. Breath sounds normal. No Wheezing. No rales Abdomen: Soft and nontender. No rigidity. No distention. Skin: Skin warm and dry. Normal skin color. Normal skin turgor. Extremities: No lower extremity edema. No Lacerations. No Rash Neuro: Oriented X 3. No motor deficit. No sensory deficit. Moving all extremities. No slurred speech. CN 2 through 12 grossly intact Psych: calm, cooperative, normal affect Medical Decision Making Medical Decision Making MDM Narrative: My interpretation of labs: Patient tested negative for COVID , flu and strep. - For symptomatic relief, patient given p.o. Decadron and viscous lidocaine. Lab Data MDM Lab Attestation statement: I reviewed the patient's lab results. Labs: Lab Results 01/03/24 01/03/24 Range/Units 21:26 21:27 COVID-19 ([facility]FREDO) Negative (Negative) COVID-19 Clin Com See Note Influenza Type A (BERTIN) Negative (Negative) Influenza Type B (BERTIN) Negative (Negative) Influenza A & B Note See Note S. pyogenes GrpA BERTIN Negative (Negative) Discharge Plan Discharge Clinical Impression: Pharyngitis Patient Disposition: Home, Self-Care Instructions: Pharyngitis (ED) Additional Instructions: Please follow-up with your primary care physician tomorrow. If you have any worsening or new symptoms, please return to the emergency room or call 911 Prescriptions: New ibuprofen 600 mg tablet 600 mg PO TID Qty: 10 0RF acetaminophen 500 mg tablet 500 mg PO QID PRN (Reason: fever or pain) Qty: 14 0RF benzocaine 15 mg lozenge 15 mg mucous membrane Q2-3H PRN (Reason: sore throat) Qty: 18 0RF No Action ibuprofen 600 mg tablet 600 mg PO Q8H PRN (Reason: fever or pain) Qty: 20 0RF fluconazole [Diflucan] 150 mg tablet 150 mg PO DAILY Qty: 1 1RF Print Language: Slovenian
[2024-01-03 23:10] VITALS: BP 122/85; PULSE 78; RESP 18; TEMP 36.8; O2SAT 99
[2024-01-03] MEDS: dexAMETHasone sod phosphate 4 MG/ML VIAL 6 MG IVPUSH (23:10)
[2024-01-03] MEDS: Lidocaine HCl Viscous 2 % 15 ML SOLUTION MUCOUS MEM (23:10)
[2024-01-03 23:12] VITALS: BP 122/85; PULSE 78; RESP 18; TEMP 36.8; O2SAT 99
== END 2024-01-03 23:13 | disposition home or self-care (01) ==
PROVIDERS: Emergency Provider Emergency Medicine
DX: J02.9 Acute pharyngitis, unspecified (principal); Z03.818 Encounter for observation for suspected exposure to other biological agents ruled out
CPT/HCPCS: 87502; 87635; 87651; 99283; 99284; J1100